=== PATIENT | male | born 1955 | race Caucasian/White ===

== ENCOUNTER → 2023-09-23 08:14 | Outpatient (REF) | payer MEDICARE, OTHER, SELFPAY ==
[2023-09-23 09:06] LABS: Hematocrit 43.2 % (39.0-52.0); Hemoglobin 14.7 g/dL (13.0-18.0); Mean Corpuscular Hgb 30.4 pg (27.0-31.0); Mean Corpuscular Volume 89.3 fL (80.0-94.0); Mean Platelet Volume 10.9 fL (7.4-10.4); Platelet Count 250 10^3/uL (130-400); Red Blood Cell Count 4.84 10^6/uL (4.70-6.10); Red Cell Dist. Width 12.9 % (11.5-14.5); White Blood Cell Count 10.4 10^3/uL (4.8-10.8)
[2023-09-23 09:48] LABS: ALT (SGPT) 22 U/L (0-50); AST (SGOT) 19 U/L (17-59); Albumin 4.2 g/dl (3.5-5.0); Alkaline Phosphatase 87 U/L (38-126); Blood Urea Nitrogen 22 mg/dl (9-20); Calcium 9.2 mg/dl (8.4-10.2); Carbon Dioxide 29 mmol/L (22-30); Chloride 103 mmol/L (98-107); Glucose 161 mg/dl (70-99); Sodium 136 mmol/L (135-145); Total Bilirubin 0.6 mg/dl (0.2-1.3); Total Protein 6.8 g/dl (6.3-8.2); eGFR > 60.00
== END ==
LOC: SDSPAT 08:14
PROVIDERS: ATTENDING PHYSICIAN Surgery; FAMILY PHYSICIAN Family Medicine
DX: Z01.818 Encounter for other preprocedural examination (principal)
CPT/HCPCS: 36415; 80053; 85027; 93005

== ENCOUNTER 2023-10-08 06:47 | Day surgery (SDC) | payer MEDICARE, OTHER, SELFPAY ==
[2023-09-23 08:31] VITALS: BMI 37.6
[2023-10-08] VITALS (13 sets, daily range): BP systolic 116–159; BP diastolic 68–94; BMI 37.6
--- NOTE | 2023-10-08 07:19 | HP.FOC2 ---
Focused History & Physical
Chief Complaint
HPI:
Chief Complaint: Abdominal pain
HPI / Indication for Planned Procedure: Patient is a 68-year-old male recently seen in outpatient surgical evaluation secondary to history of postprandial epigastric abdominal pain with nausea and vomiting. He has undergone outpatient GI evaluation
confirming the presence of gallstones, no biliary ductal dilation. Upper GI endoscopy demonstrating a small sliding hiatal hernia but otherwise normal with the exception of esophagitis. He presents today for cholecystectomy for management of
suspected symptomatic cholelithiasis
Relevant Past Medical History: Other (Hypertension, history of hep C -treated, GERD, hemochromatosis, history of melanoma, BPH with history of retention)
Relevant Social History: Negative
Relevant Family History: Negative
Relevant Past Surgical History: Positive for (Left knee replacement, right knee replacement, epigastric hernia repair, prostate biopsies, excision melanoma and neck surgery for herniated disc)
Review of Systems
Review of Pertinent Systems: All Systems Negative
Medication
See Medication form for detailed medications: Yes
Medication List (including Herbals & OTC):
Multivitamin 1 tab PO DAILY Supplement 04/23/20
Zinc 1 tab PO DAILY Supplement 04/23/20
amlodipine 5 mg tablet 5 mg PO DAILY Blood pressure ##0 04/25/21
omeprazole 40 mg capsule,delayed release 40 mg PO DAILY Gastrointestinal issue ##0 04/25/21
ibuprofen 400 mg tablet 400 mg PO Q6H PRN pain 10/04/23
lisinopril 20 mg-hydrochlorothiazide 25 mg tablet 1 tab PO DAILY 10/04/23
metformin 500 mg tablet 500 mg PO BID 10/04/23
Medications Reviewed: Yes
Allergies and Reactions
Patient has Allergies: Yes
Noted Allergies and Reactions:
Allergy/AdvReac Type Severity Reaction Status Date / Time
Penicillins Allergy Rash Verified 10/04/23 14:53
Pertinent Physical Exam
All Other Systems: Negative
Head/Neck: Normal
Lungs: Normal
Heart: Normal
Abdomen: Normal
Extremities: Normal
Neurological: Normal
Diagnosis / Assessment
68-year-old male presenting for scheduled cholecystectomy for management of probable chronic calculus cholecystitis/symptomatic cholelithiasis
Plan / Procedure
Laparoscopic cholecystectomy
Anesthesia/Sedation to be done by Anesthesia Provider: Yes
[2023-10-08 08:25] LABS: Glucose - Point of Care 164 mg/dl (70-99)
[2023-10-08] MEDS: TYLENOL 1000 MG PO (08:25)
[2023-10-08] MEDS: NORMOSOL-R 1000 IV (08:25)
--- NOTE | 2023-10-08 09:14 | W.SUR.PREOP ---
Pre-Operative Surgical Note
-
I have examined this patient prior to the performance of the scheduled procedure.
The patient's condition is unchanged from the time of the current History and
Physical and the patient is able to undergo the scheduled procedure.
[2023-10-08 09:31] LABS: Glucose - Point of Care 132 mg/dl (70-99)
--- NOTE | 2023-10-08 10:35 | SUR.OPER ---
PATIENT SUPINE, ARMS EXTENDED AND SECURED ON PADDED ARM BOARDS
--- NOTE | 2023-10-08 11:01 | W.IMMPOSTOP ---
Addendum entered and electronically signed by Obi Dove MD 10/08/23 11:11:
[id number]
Original Note:
Surgical Immed Post Op Note
-
Primary Surgeon: Petty
Assisting Surgeon: None
Pre-op Diagnosis: Chronic calculus cholecystitis/symptomatic cholelithiasis
Post-op Diagnosis: Chronic calculus cholecystitis/symptomatic cholelithiasis
Procedure Performed: Laparoscopic cholecystectomy
Anesthesia Type: GETA +0.25% Marcaine
Specimen / Cultures: Gallbladder
Estimated Blood Loss: 8 mL
Complications: None immediate
Operative Findings: Physiologically distended gallbladder with numerous omental adhesions consistent with chronic calculus cholecystitis. Stone(s) at infundibular cystic junction. Cystic duct isolated and controlled with hemoclips after critical
view of safety mildly obtained. Anterior cystic artery, posterior cystic artery as well as branch to cystic duct controlled with Hemoclip. Gallbladder removed intact and extracted at epigastric port site.
[2023-10-08 11:38] LABS: Glucose - Point of Care 208 mg/dl (70-99)
[2023-10-08 14:04] LABS: Glucose - Point of Care 248 mg/dl (70-99)
== END 2023-10-08 14:55 | disposition home or self-care (01) ==
LOC: SDS 06:47
PROVIDERS: ATTENDING PHYSICIAN Surgery
DX: K80.10 Calculus of gallbladder with chronic cholecystitis without obstruction (principal)
CPT/HCPCS: 47562; 88304; 82962

== ENCOUNTER 2024-02-28 05:47 | Inpatient (IN) | payer MEDICARE, OTHER, SELFPAY ==
[2024-02-28] VITALS (15 sets, daily range): BP systolic 139–175; BP diastolic 81–103; BMI 37.2; BMI 35.3
--- NOTE | 2024-02-28 03:02 | ED.GENMED ---
History of Present Illness
<JAKE Scanlon - Last Filed: 02/28/24 05:09>
General
Chief Complaint: Breathing Problem
Source: patient
Exam Limitations: none
Time Seen by Provider: 02/28/24 03:02
Nursing documentation reviewed up to this point in time: agreed with
History of Present Illness
History of Present Illness:
Pt is a 69 y/o M with pmhx of HTN, DM, GERD, Dodd's esophagus, and hepatitis who presents with complaints of shortness of breath for several weeks but has worsened tonight. SOB is worse with inhalation and exertion. The pt stated that he was
unable to walk across the parking lot to enter the ED due to SOB. There is an associated productive cough with clear sputum. Denies palpitations, chest pain, fever, nausea, vomiting, lightheadedness, adn hemoptysis.
The pt has a pmhx of HTN, DM, Dodd's esophagus, and self diagnosed sleep apnea. He currently takes Lisinopril, Amlodipine, Metformin, and Omeprazole. The pt reports that he regularly goes to nursing homes to play games.
Past History
<JAKE Scanlon - Last Filed: 02/28/24 05:09>
Past History
ED Past Medical History: Cancer (Melanoma), HTN, Other (Urinary retention) and Other (prostate)
ED Past Surgical History: Other (Biopsy)
Social History
Tobacco: Non-smoker
Alcohol: None
Drug: None
Personal: Single
Living: alone
Employment: Employed
Family History
Family History: Other (Noncontributory)
Review of Systems
<JAKE Scanlon - Last Filed: 02/28/24 05:09>
Review of Systems
Allergies reviewed?: Yes
Constitutional: Reports no symptoms
EENT: Reports no symptoms
Respiratory: Reports cough and trouble breathing
Cardiac: Reports no symptoms
ABD/GI: Reports no symptoms
: Reports no symptoms
Musculoskeletal: Reports no symptoms
Skin: Reports no symptoms
Neurological: Reports no symptoms
Endocrine: Reports no symptoms
Hematologic/Lymphatic: Reports no symptoms
Psychiatric: Reports no symptoms
Phy Exam
<JAKE Scanlon - Last Filed: 02/28/24 05:09>
General Physical Exam
General Presentation: well appearing and mild distress
General age: appears stated age
General Skin: warm and dry
General Habitus: normal
General Mental: alert
General Hydration: appears well hydrated
ENT Exam
ENT Exam: neck supple
Eye Exam
Eye Exam: cornea clear and conjunctiva normal
Cardiovascular Exam
Cardiovascular Exam: regular rate/rhythm, normal peripheral pulses and tachycardia
Pulmonary Exam
Pulmonary Exam: chest non tender, accessory muscle use and decreased breath sounds
Respiratory Effort: tachypnea
Cough: productive cough
Respirations: moderate effort and shallow
Breath Sounds: Rhonchi: right upper and right lower
Gastrointestinal Exam
Gastrointestinal Exam: soft and non distended
Neurological Exam
Neurological Exam: alert, oriented x3, no motor deficits, normal reflexs, no sensory deficits and speech normal
Musculoskeletal Exam
Musculoskeletal Exam: full ROM and neuro vasc intact
Skin Exam
Skin Exam: normal color and warm/dry
Scores
<JAKE Scanlon - Last Filed: 02/28/24 05:09>
Heart Failure Risk
HF Risk Score: 2
Admission Status: MEDIUM RISK 9.2% Consider observation or discharge to home with homecare & f/u visit to PCP/[facility], or SNF for treatment
<Juan Miguel Bains DO - Last Filed: 02/28/24 05:15>
Heart Failure Risk
Heart Failure Risk Score: Yes
History of Stroke or TIA: No
History of intubation for respiratory distress: No
Heart rate on ED arrival >/= 110: Yes
SaO2 <90% on arrival on room air: No
HR >/=110 during 3min walk test (or too ill to perform test): Yes
ECG has acute ischemic changes: No
Urea >/=12mmol/L (BUN 33.6mg/dL): No
Serum CO2>/=35mmol/L: No
Troponin I or T elevated to DE Level (0.4mg/dL): No
NT-proBNP >/=5,000ng/L (5,000pg/ml): No
HF Risk Score: 2
Admission Status: MEDIUM RISK 9.2% Consider observation or discharge to home with homecare & f/u visit to PCP/[facility], or SNF for treatment
Course
<JAKE Scanlon - Last Filed: 02/28/24 05:09>
Orders/Labs/Results
Orders:
Orders
02/28/24 02:51
Electrocardiogram (*1) Urgent
Reason for Study: Other
Other Reason for Exam: Respiratory Distress
EKG- Treatment ONCE
CR Chest - 2 Views Urgent
Comment:
Reason For Exam: respiratory distress
02/28/24 02:54
COVID-19 Antigen Urgent
Source: Nasal Swab
Complete Blood Count/With Diff Urgent
Comprehensive Metabolic Panel Urgent
NT-proBNP Urgent
Troponin I Urgent
02/28/24 03:43
Furosemide [Lasix] 80 mg IV NOW STA
Nitroglycerin Ointment [Nitro-Bid] 1 inch TOPICAL NOW STA
Abnormal Lab Results
02/28/24
02:54
WBC 11.7 H 10^3/uL
(4.8-10.8)
MPV 11.3 H fL
(7.4-10.4)
Absolute Neuts (auto) 8.7 H 10^3/uL
(1.4-6.5)
Absolute Monos (auto) 0.9 H 10^3/uL
(0.1-0.6)
Lymphocytes % 15.1 L %
(20.5-51.1)
BUN 22 H mg/dl
(9-20)
Glucose 155 H mg/dl
(70-99)
02/28/24 02:54
02/28/24 02:54
Vital Signs
Initial and Last Documented VS:
Initial Vital Signs
Temp Pulse Resp BP Pulse Ox
98.2 F 111 22 160/97 96
02/28/24 02:27 02/28/24 02:27 02/28/24 02:27 02/28/24 02:27 02/28/24 02:27
Last Documented Vital Signs
Temp Pulse Resp BP Pulse Ox
98.2 F 121 24 175/103 93
02/28/24 02:27 02/28/24 04:30 02/28/24 04:30 02/28/24 04:30 02/28/24 04:00
<Juan Miguel Bains, DO - Last Filed: 02/28/24 05:15>
Orders/Labs/Results
Orders:
Orders
02/28/24 02:51
Electrocardiogram (*1) Urgent
Reason for Study: Other
Other Reason for Exam: Respiratory Distress
EKG- Treatment ONCE
CR Chest - 2 Views Urgent
Comment:
Reason For Exam: respiratory distress
02/28/24 02:54
COVID-19 Antigen Urgent
Source: Nasal Swab
Complete Blood Count/With Diff Urgent
Comprehensive Metabolic Panel Urgent
NT-proBNP Urgent
Troponin I Urgent
02/28/24 03:43
Furosemide [Lasix] 80 mg IV NOW STA
Nitroglycerin Ointment [Nitro-Bid] 1 inch TOPICAL NOW STA
Abnormal Lab Results
02/28/24
02:54
WBC 11.7 H 10^3/uL
(4.8-10.8)
MPV 11.3 H fL
(7.4-10.4)
Absolute Neuts (auto) 8.7 H 10^3/uL
(1.4-6.5)
Absolute Monos (auto) 0.9 H 10^3/uL
(0.1-0.6)
Lymphocytes % 15.1 L %
(20.5-51.1)
BUN 22 H mg/dl
(9-20)
Glucose 155 H mg/dl
(70-99)
02/28/24 02:54
02/28/24 02:54
Vital Signs
Initial and Last Documented VS:
Initial Vital Signs
Temp Pulse Resp BP Pulse Ox
98.2 F 111 22 160/97 96
02/28/24 02:27 02/28/24 02:27 02/28/24 02:27 02/28/24 02:27 02/28/24 02:27
Last Documented Vital Signs
Temp Pulse Resp BP Pulse Ox
98.2 F 121 24 175/103 93
02/28/24 02:27 02/28/24 04:30 02/28/24 04:30 02/28/24 04:30 02/28/24 04:00
<JKAE Scanlon - Last Filed: 02/28/24 05:09>
MDM/Problems Addressed
Differential Diagnosis Includes:
Pneumonia
COPD
Covid
<JAKE Scanlon - Last Filed: 02/28/24 05:09>
*Critical Care Note
Total Time (30-74mins, 75-104mins- exclusive of procedures): Not Applicable
<Juan Miguel Bains DO - Last Filed: 02/28/24 05:15>
Update Note
Update Note:
Patient states been urinating very frequently since we gave him the diuretics. He states that he feels less short of breath, and denies other continuous chest pain though he still reports some intermittent chest pain. Patient wants to go home at
this point. He will be brought into the hospital.
ED Attending Note
<JAKE Scanlon - Last Filed: 02/28/24 05:09>
-
Portions of this chart may have been created with voice recognition software.� Occasional wrong word or��sound alike� substitutions may have occurred due to the inherent limitations of voice recognition software.
<Juan Miguel Bains DO - Last Filed: 02/28/24 05:15>
ED Attending Note
Patient seen and examined by attending physician: Yes
I performed the substantive portion of visit, reviewed & personally made and approve the management plan that is documented in note by myself or SANDRA.: Yes
ED Attending Note:
Pleasant 69-year-old male that presents with shortness of breath. He states that he has been having difficulty breathing for the last few weeks but tonight has been worse. 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 Tonight he noted
that he could not walk very far without gasping for air. Patient states that he typically would be able to ambulate from the parking lot to the emergency department but tonight he had a very difficult time walking. He became short of breath. He
did have a productive cough. Denies hemoptysis. Reports no true chest pain. Denies fever or chills. May have sleep apnea but states that the last 2 he has had very good sleep.
Vital signs are stable. Patient not hypoxic
Nursing note reviewed. I agree with nursing documentation up to this point in time.
Home Meds and allergies reviewed.
NUMBER AND COMPLEXITY OF PROBLEMS ADDRESSED AT THE ENCOUNTER
� Chronic conditions affecting care: Sleep apnea, hypertension, GERD, Dodd's esophagus, hepatitis.
� Acute Exacerbation and/or Progression of Chronic Illness: Acute problem
� Differential Diagnosis includes: CHF, COPD, pneumonia
AMOUNT AND/OR COMPLEXITY OF DATA TO BE REVIEWED AND ANALYZED
I performed an independent evaluation of the following and my interpretation is:
EKG: EKG shows sinus tachycardia rate of 110 with prolonged QT. Compared to previous EKG dated September 23, 2023, similar morphology noted.
CT:
X-rays: Pulmonary vascular congestion with possible right lower lobe infiltrate.
Ultrasound:
Laboratory Studies: proBNP is 2630
Other:
Review of other/old records: No previous chest x-rays
Clinical information was obtained by an independent historian:
Prescriptions/Medications Considered but not given:
Further testing considered but not performed:
RISK OF COMPLICATIONS AND/OR MORBIDITY OR MORTALITY OF PATIENT MANAGEMENT
Social determinants of health affecting care: Good Social Support
Discussion with other providers: Hospitalist for admission
Escalation of care including admission/observation vs risk of discharge considered:
CRITICAL CARE NOTE:
Critical care statement: A total of 30 minutes of critical care time was provided for this patient. This time is separate from time utilized to perform the aforementioned documented procedures. Aggregate critical care time includes only time
during which I was engaged in work directly related to the patient's care, as described above, whether at the bedside or elsewhere in the Emergency Department.
Total Time (exclusive of procedures):
Update:
Discharge Plan
Departure
Patient Disposition: Admit
Date of Disposition: 02/28/24
Time of Disposition: 05:11
Presentation/result/management discussed w/ accepting MD/DO: Hospitalist
Condition: Good
Discharge Problem:
CHF (congestive heart failure), Short of breath on exertion
Prescriptions:
No Action
Multivitamin
1 tab PO DAILY
Zinc
1 tab PO DAILY
amlodipine 5 MG tablet
5 mg PO DAILY Qty: 0 0RF
Rx Instructions:
Hold if systolic blood pressure <130 while on Oxycodone.
omeprazole 40 MG capsule,delayed release(DR/EC)
40 mg PO DAILY Qty: 0 0RF
Rx Instructions:
Take daily while on daily Meloxicam.
metformin 500 mg Tablet
500 mg PO BID
ibuprofen 400 mg Tablet
400 mg PO Q6H PRN (Reason: pain)
lisinopril-hydrochlorothiazide 20-25 mg Tablet
1 tab PO DAILY
acetaminophen [Tylenol Extra Strength] 500 mg tablet
1,000 mg PO Q6HPRN PRN (Reason: mild pain) Qty: 1 0RF
polyethylene glycol 3350 [Miralax] 17 gram/dose powder
4 g PO DAILY PRN (Reason: Constipation) Qty: 119 0RF
Rx Instructions:
start a laxative such as MIRALAX on day 2 after surgery if no bowel movement yet as long as no nausea/vomiting and passing gas
oxycodone 5 mg tablet
5 mg PO Q4HPRN PRN (Reason: breakthrough/severe pain) Qty: 14 0RF
Referrals:
Laith Mohamud MD [Family Provider] -
Interventions
Interventions:
*Risk Screen - Suicide Last Done: 02/28/24 02:27
*General Assessment Last Done: 02/28/24 02:27
*Neglect/Abuse Screening Last Done: 02/28/24 02:27
*ED COVID-19 Vaccine History Last Done: 02/28/24 02:54
ED- Cardiac Assessment Last Done: 02/28/24 03:11
ED- Pulmonary Assessment Last Done: 02/28/24 03:11
Discharge Date and Time
Print Language: CENTRAL AFRICAN
[2024-02-28 03:04] LABS: % Basophils 0.3 % (0-2); % Eosinophils 2.6 % (0-6); % Immature Granulocytes 0.3 % (0-0.5); % Lymphocytes 15.1 % (20.5-51.1); % Monocytes 7.8 % (1.7-9.3); % Neutrophils 73.9 % (42.2-75.2); Absolute Eosinophils 0.3 10^3/uL (0-0.7); Absolute Lymphocytes 1.8 10^3/uL (1.2-3.4); Absolute Monocytes 0.9 10^3/uL (0.1-0.6); Absolute Neutrophils 8.7 10^3/uL (1.4-6.5); Hematocrit 43.6 % (39.0-52.0); Hemoglobin 14.6 g/dL (13.0-18.0); Mean Corp Hgb Conc. 33.5 g/dL (33.0-37.0); Mean Corpuscular Hgb 30.4 pg (27.0-31.0); Mean Corpuscular Volume 90.8 fL (80.0-94.0); Mean Platelet Volume 11.3 fL (7.4-10.4); Nucleated Red Blood Cells % 0 % (-); Platelet Count 228 10^3/uL (130-400); Red Cell Dist. Width 13.2 % (11.5-14.5); White Blood Cell Count 11.7 10^3/uL (4.8-10.8)
[2024-02-28 03:17] LABS: ALT (SGPT) 19 U/L (0-50); AST (SGOT) 17 U/L (17-59); Albumin 4.3 g/dl (3.5-5.0); Alkaline Phosphatase 86 U/L (38-126); Blood Urea Nitrogen 22 mg/dl (9-20); Calcium 9.4 mg/dl (8.4-10.2); Carbon Dioxide 27 mmol/L (22-30); Chloride 103 mmol/L (98-107); Estimated Creatinine Clearance 83 ml/min; Glucose 155 mg/dl (70-99); Potassium 4.3 mmol/L (3.5-5.1); Sodium 143 mmol/L (135-145); Total Bilirubin 0.6 mg/dl (0.2-1.3); Total Protein 6.6 g/dl (6.3-8.2); eGFR > 60.00
[2024-02-28 03:23] LABS: COVID-19 Antigen Negative (Negative)
[2024-02-28 03:30] LABS: NT-proBNP 2630 pg/ml; Troponin I 0.016 ng/ml
[2024-02-28] MEDS: LASIX 80 MG IV (03:47)
[2024-02-28] MEDS: NITRO-BID 1 INCH TOPICAL (03:48)
--- NOTE | 2024-02-28 05:44 | HPS.HSE ---
Family Physician
-
Family Physician: Laith Mohamud
Chief Complaint
-
SOB
History of Present Illness
Patient is a 69y M with PMH significant for hypertension, DM-II and obesity who presents to ED complaining of SOB. Patient states that he has noted several months of dyspnea with exertion that seems to be gradually progressing. He states that
his symptoms have been suddenly much more severe over the past few days. He was at a retreat in [place] this evening when he could not get to sleep / lie flat / get comfortable due to feeling short of breath. He decided to drive back home and
presented to the ED for evaluation.
Patient denies any chest pain, pressure or palpitations. He has mild, non-productive cough. No sore throat, fevers or chills.
He denies any recent long distance travel. Most recent surgery was cholecystectomy in October of this year.
Patient denies any prior history of heart disease, OR, stroke, etc.
In the ED, patient received 80mg IV Lasix and has been diuresing effectively since. He states that his dyspnea may be slightly better - but he has also been inactive here.
Medical History
Past Medical History
Past Medical History: Reports Other
Additional Past Medical History:
Hypertension
DM-II
Obesity
Hepatitis C s/p Harvoni
Hereditary Hemochromatosis
Melanoma
GERD
BPH
Past Surgical History: Reports Other
Additional Past Surgical History:
Cholecystectomy
Melanoma Excision
TURP
Bilateral TKA
Social History
Tobacco: Former Smoker (Quit smoking 30 years ago.)
Alcohol: Former (Sober x 34 years.)
Drug: Other (Remote history of IVDA. Sober x decades.)
Family History
Family History: Not pertinent
Allergies / Home Medications
Allergies reflects when Allergies were last updated in [facility].
Home Medications with original date entered in [facility]
Allergy/Medication List:
Allergies
Allergy/AdvReac Type Severity Reaction Status Date / Time
Penicillins Allergy Rash Verified 02/28/24 02:32
Home Medications
amlodipine 5 mg tablet 5 mg PO DAILY Blood pressure ##0 04/25/21
omeprazole 40 mg capsule,delayed release 40 mg PO DAILY Gastrointestinal issue ##0 04/25/21
lisinopril 20 mg-hydrochlorothiazide 25 mg tablet 1 tab PO DAILY 10/04/23
metformin 500 mg tablet 500 mg PO BID 10/04/23
Review of Systems
-
History Source: Patient
A 12 point ROS was completed and negative except as noted: Yes
Constitutional: Reports Fatigue; Denies Fever or Chills
EENT: Denies Sore Throat
Respiratory: Reports Cough and Trouble Breathing; Denies Hemoptysis
Cardiac: Denies Chest Pain, Diaphoresis, Palpitations or Syncope
Abdomen/GI: Denies Abdominal Pain, Nausea, Vomiting or Diarrhea
: Denies Dysuria, Frequency or Flank Pain
Musculoskeletal: Denies Joint Pain or Edema
Neurological: Denies Dizzy or Headache
Psych: Denies Depression or Anxiety
Physical Exam
Vital Signs
Vital Signs
Temp Pulse Resp BP Pulse Ox
98.2 F 106 17 149/86 93
02/28/24 02:27 02/28/24 05:00 02/28/24 05:00 02/28/24 05:00 02/28/24 04:00
Physical Exam
General: Other (69y M in no acute distress.)
HEENT: Moist mucous membranes and Other (Thick neck. No appreciable JVD or HJR.)
Respiratory: Other (Few bibasilar rales. Decreased BS throughout. )
Cardiac: S1/S2 and Tachycardia; No Murmur
GI: Soft, Non Tender, Non Distended and Normal Bowel Sounds
Musculoskeletal: No Clubbing, No Cyanosis and Other (Trace edema b/l LEs.)
Neuro: AO x 3 and Nonfocal/grossly intact
Laboratory Results
-
02/28/24 02:54
02/28/24 02:54
Laboratory Results
Total Bilirubin 0.6 mg/dl (0.2-1.3) 02/28/24 02:54
AST 17 U/L (17-59) 02/28/24 02:54
ALT 19 U/L (0-50) 02/28/24 02:54
Alkaline Phosphatase 86 U/L (38-126) 02/28/24 02:54
Troponin I 0.016 ng/ml 02/28/24 02:54
Impression/Plan
-
A/P: Patient is a 69y M with PMH significant for hypertension and DM-II who presents to ED complaining of SOB.
SOB / COHN
Tachycardia
CHF - Unknown Type - New
- Admit for further evaluation and treatment.
- Patient with months of COHN, but increase in symptoms over the past few days.
- Not hypoxemic. Persistent sinus tachycardia here in the ED.
- CXR with small effusions and mild vascular prominence. BNP elevated.
- Continue IV Lasix BID and follow for effective diuresis.
- Check Echo (last in 2019 was normal).
- Cardiology evaluation for additional recommendations.
- Serial troponin.
- Check CT PE study with risk factors and persistent tachycardia.
Benign Hypertension
- BP elevated in the ED c/w volume overload / CHF.
- Hold amlodipine / HCTZ acutely during diuresis.
- Continue lisinopril with holding parameters.
DM-II
- Stable. Hold PO medications.
- Follow glucose and cover with SSI as needed.
- Update A1C.
Obesity due to excess calories
- Affects all aspects of care
- Encourage healthy diet and increased exercise with goal of weight loss.
DVT Prophylaxis: Lovenox - change to therapeutic if CTA shows PE.
Code Status: Full
--- NOTE | 2024-02-28 08:52 | W.PN.HOSP.TC ---
Today's Communication/Plan
-
IV Lasix. monitoring coordinator
Assessment / Plan
Assessment / Plan
Physical exam:
General: Acutely ill
HEENT: Normocephalic, Atraumatic and Moist Mucous Membranes
Respiratory: Bilateral crackles; Negative Wheezes, or Rhonchi
Cardiac: Regular Rhythm and S1/S2
GI: Soft, Nontender and Nondistended
Musculoskeletal: No Clubbing, No Cyanosis and No Edema
Neuro: Awake, Alert and Oriented
Psych: Calm
A/P:
SOB / COHN
Tachycardia
CHF - Unknown Type - New
- Admit for further evaluation and treatment.
- Patient with months of COHN, but increase in symptoms over the past few days.
- Not hypoxemic. Persistent sinus tachycardia here in the ED.
- CXR with small effusions and mild vascular prominence. BNP elevated.
- Continue IV Lasix BID and follow for effective diuresis.
- Check Echo (last in 2018 was normal).
- Cardiology evaluation for additional recommendations.
- Serial troponin.
- Check CT PE study with risk factors and persistent tachycardia.
Benign Hypertension
- BP elevated in the ED c/w volume overload / CHF.
- Hold amlodipine / HCTZ acutely during diuresis.
- Continue lisinopril with holding parameters.
DM-II
- Stable. Hold PO medications.
- Follow glucose and cover with SSI as needed.
- Update A1C.
Obesity due to excess calories
- Affects all aspects of care
- Encourage healthy diet and increased exercise with goal of weight loss.
DVT Prophylaxis: Lovenox - change to therapeutic if CTA shows PE.
Code Status: Full
Anticipated Discharge: > 48 hours
Subjective/Interval History
-
Date of Service: February 28, 2024
Patient still short of breath but feels slightly better today. No chest pain. Afebrile
Objective Data
-
Labs:
Laboratory Results
02/28/24
02:54
WBC 11.7 H
Hgb 14.6
Hct 43.6
Plt Count 228
Sodium 143
Potassium 4.3
Chloride 103
Carbon Dioxide 27
BUN 22 H
Creatinine 1.0
Glucose 155 H
Calcium 9.4
Total Bilirubin 0.6
AST 17
ALT 19
Alkaline Phosphatase 86
Vital Signs:
Vital Signs
Temp Pulse Resp BP Pulse Ox
98.3 F 106 18 159/99 96
02/28/24 08:47 02/28/24 08:47 02/28/24 08:47 02/28/24 08:47 02/28/24 08:47
I&O
02/27/24 02/28/24 02/29/24
06:59 06:59 06:59
Output Total 1000 / 1000
Balance -1000 / -1000
--- NOTE | 2024-02-28 09:24 | CON.CAR ---
Addendum entered and electronically signed by Que Lea MD 02/28/24 17:18:
I saw and examined the patient.
The ILLUMINATOR's note was reviewed and I agree with the note.
Comment: 69 y/o male with hypertension, PVC's, malignant melanoma s/p excision, hepatitis C (s/p Harvoni), hemochromatosis, RBBB (noted on EKG 09/2023), GERD/Dodd's esophagus, dyslipidemia, DM, and obesity. He has new acute HFrEF.
- Coronary angio tomorrow
- GDMT to be initiated
Original Note:
Consultation
Consultation Request
Date/Time Consultation Requested: 02/28/24906
Date/Time Consultation Performed: 02/28/24939
Requesting Provider: Dr. Leggett
Performing Provider: Ciara JUÁREZ for Dr. Lea
Reason for Consultation: CHF
Medical History
-
Chief Complaint: SOB
History of Present Illness:
69 y/o male with hypertension, PVC's, malignant melanoma s/p excision, hepatitis C (s/p Harvoni), hemochromatosis, RBBB (noted on EKG 09/2023), GERD/Dodd's esophagus, dyslipidemia, DM, and obesity. He is here for SOB. He has had progressive COHN
for the past year, but the past few weeks have been worse. It progressed so much that he came to the ER, where he is admitted for acute HF. He feels much improved s/p a dose of IV lasix, but still appears volume overloaded to assessment. He denies
any CP. He denies fever, chills, or cough.
Past Medical History
Past Medical History: Arrhythmias, Cancer, HTN, Hypercholesterolemia, NIDDM and Other (as above)
Social History
Tobacco: Non-Smoker
Alcohol: None
Family History
Family History: Reviewed & Not Pertinent
Allergies / Home Medications
Allergy/AdvReac Type Severity Reaction Status Date / Time
Penicillins Allergy Rash Verified 02/28/24 02:32
�Medication �Instructions �Recorded �Confirmed �Type
amlodipine 5 mg tablet 5 mg PO DAILY Blood pressure ##0 04/25/21 02/28/24 Rx
omeprazole 40 mg capsule,delayed 40 mg PO DAILY Gastrointestinal 04/25/21 02/28/24 Rx
release issue ##0
lisinopril 20 1 tab PO DAILY 10/04/23 02/28/24 History
mg-hydrochlorothiazide 25 mg tablet
metformin 1,000 mg tablet 1,000 mg PO BID 02/28/24 02/28/24 History
therapeutic multivitamin 1 tab PO DAILY 02/28/24 02/28/24 History
zinc sulfate 50 mg zinc (220 mg) 50 mg PO DAILY 02/28/24 02/28/24 History
tablet
Review of Systems
-
History Source: Patient
All other systems: Negative unless noted
Respiratory: Trouble Breathing
Musculoskeletal: Edema (mild BLE)
Physical Exam
Vital Signs
Temp Pulse Resp BP Pulse Ox
98.3 F 106 18 159/99 96
02/28/24 08:47 02/28/24 08:47 02/28/24 08:47 02/28/24 08:47 02/28/24 08:47
Lab Results
02/28/24 02:54
Troponin I 0.016 ng/ml 02/28/24 02:54
Wel-U-Ewpyhjbeest Pept 2630 pg/ml 02/28/24 02:54
Physical Exam
General: Well Developed and No Apparent Distress
HEENT: Normocephalic and Anicteric
Respiratory: Crackles (b/l bases)
Cardiac: Regular Rhythm (SR/ST)
Musculoskeletal: Edema (mild BLE edema)
Skin: Warm and Dry
Neuro: AO x 3
Psych: Calm
Impression / Plan
-
Acute HF (type unknown):
-update echo (2019 was unremarkable)
-agree with IV lasix, which requires intensive monitoring
-CHF education, limit sodium/fluid
-follow renal function, weights, I/O's
HTN:
-elevated
-continue meds and monitor with diuresis
-may need to adjust antihypertensives as well
-on CCB and ACEI/HCTZ. HCTZ stopped with diuretic. ACEI continued. I will resume CCB.
Bifascicular block:
-RBBB noted 09/2023
-follow telemetry
-currently SR/ST around 100 BPM
Obesity:
-would benefit from weight loss moving forward
-thinks he may have sleep apnea, so should consider OP sleep study with his PCP
Data Reviewed
-
EKG: Tracing Personally Visualized and interpreted (ST with PACs, bifasicular block)
CT Scan: Report Reviewed by me (Chest CT: Small bilateral pleural effusions with scattered areas of interlobular septal thickening compatible with mild pulmonary edema.)
Medical Tests (Nuc Med, Echo etc): Report Reviewed by me (echo 08/08/18: Normal left ventricular size, wall thickness and systolic function. LV ejection fraction is 55-60% . Trace mitral regurgitation. Trace tricuspid regurgitation.)
Labs: Labs Reviewed by me
[2024-02-28] MEDS: LASIX 40 MG IV ×2 (10:02→17:15)
[2024-02-28 10:03] LABS: Troponin I 0.029 ng/ml
[2024-02-28] MEDS: LOW STRENGTH ASPIRIN 81 MG PO (10:03)
[2024-02-28] MEDS: ZESTRIL 20 MG PO (10:03)
[2024-02-28 10:22] LABS: TSH Reflex To Free T4 0.73 uIU/ml (0.47-4.68)
[2024-02-28 10:26] LABS: Blood Urea Nitrogen 22 mg/dl (9-20); Calcium 9.3 mg/dl (8.4-10.2); Carbon Dioxide 23 mmol/L (22-30); Chloride 102 mmol/L (98-107); Estimated Creatinine Clearance 81 ml/min; Glucose 147 mg/dl (70-99); Magnesium 1.7 mg/dl (1.6-2.3); Potassium 3.7 mmol/L (3.5-5.1); Sodium 141 mmol/L (135-145); eGFR > 60.00
[2024-02-28 11:41] LABS: Glucose - Point of Care 138 mg/dl (70-99)
[2024-02-28] MEDS: NORVASC 5 MG PO (11:48)
[2024-02-28] MEDS: KCL 40 MEQ PO (12:29)
--- NOTE | 2024-02-28 15:09 | CM ---
Alert awake oriented patient who lives alone.He has supportive brother sister and friend Tung. He is independent in driving and all activities of daily living.Offered VN he declined need.IMM given explained signed on chart.
No VN hx /No SNF hx
Pharmacy [facility]
PCP DR Laith Mohamud
PLAN Home no anticipated needs
--- NOTE | 2024-02-28 16:00 | CARDSERVLU ---
Echocardiogram with Lumason completed after protocol screening completed. Allergies verified.
Patent IV site: __Rt AC___
IV site flushed with 0.9% NaCl pre and post administration.
Diluted bolus method utilized to enhance visualization of ventricular marie.
Total volume given: ___2_ mL
Patient tolerated all procedures well without complications.
[2024-02-28 17:15] LABS: Glucose - Point of Care 156 mg/dl (70-99)
[2024-02-28] MEDS: LOVENOX 40 MG SC (17:15)
[2024-02-28] MEDS: ASPIRIN 325 MG PO (17:24)
[2024-02-28] MEDS: TOPROL XL 25 MG PO (20:18)
[2024-02-28] MEDS: MAG-TAB SR 84 MG PO (20:18)
[2024-02-29] VITALS (13 sets, daily range): BP systolic 120–160; BP diastolic 79–96; BMI 34.6
[2024-02-29 00:25] LABS: Glucose - Point of Care 143 mg/dl (70-99)
[2024-02-29 06:03] LABS: Glucose - Point of Care 140 mg/dl (70-99)
[2024-02-29] MEDS: LASIX 40 MG IV ×2 (07:49→17:24)
[2024-02-29] MEDS: MAG-TAB SR 84 MG PO ×2 (07:49→19:32)
[2024-02-29] MEDS: LOW STRENGTH ASPIRIN 81 MG PO (07:49)
[2024-02-29] MEDS: TOPROL XL 25 MG PO ×2 (07:49→19:32)
[2024-02-29] MEDS: NORVASC 5 MG PO (07:49)
--- NOTE | 2024-02-29 08:44 | W.PN.HOSP.TC ---
Today's Communication/Plan
-
IV Lasix. Cardiac catheterization.
Assessment / Plan
Assessment / Plan
Physical exam:
General: Acutely ill
HEENT: Normocephalic, Atraumatic and Moist Mucous Membranes
Respiratory: Bilateral crackles; Negative Wheezes, or Rhonchi
Cardiac: Regular Rhythm and S1/S2
GI: Soft, Nontender and Nondistended
Musculoskeletal: No Clubbing, No Cyanosis and No Edema
Neuro: Awake, Alert and Oriented
Psych: Calm
A/P:
Acute systolic congestive heart failure:
On IV Lasix 40 mg twice a day
Requires intensive monitoring-->Monitor renal function & electrolytes
Started on GDMT-lisinopril 20 mg p.o. daily, metoprolol succinate 25 mg p.o. twice a day.
Echocardiogram revealed EF 35% and global diffuse hypokinesis and mild to moderate LVH with no significant valvular heart disease. EF previous was normal.
CTA negative for PE
Cardiology consult appreciated
Plan for cardiac catheterization today
Nonsustained V. tach:
Started on beta-kellee
Cardiac monitoring
Hypertension:
On DOE inhibitor, beta-blockers, and calcium channel kellee.
HCTZ discontinued.
Monitor blood pressure adjust medications accordingly
Diabetes mellitus type 2:
Insulin sliding scale
Hemoglobin A1c pending
Obesity due to excess calories
Affects all aspects of care
Encourage healthy diet and increased exercise with goal of weight loss.
DVT Prophylaxis: Lovenox
Code Status: Full
Time spent 55 minutes
Anticipated Discharge: 24 - 48 hours
Subjective/Interval History
-
Date of Service: February 29, 2024
Less shortness of breath. No chest pain.
Objective Data
-
Labs:
Laboratory Results
02/29/24
08:04
WBC Pending
Hgb Pending
Hct Pending
Plt Count Pending
Sodium Pending
Potassium Pending
Chloride Pending
Carbon Dioxide Pending
BUN Pending
Creatinine Pending
Glucose Pending
Calcium Pending
Vital Signs:
Vital Signs
Temp Pulse Resp BP Pulse Ox
98.4 F 80 18 149/83 96
02/29/24 07:30 02/29/24 07:49 02/29/24 07:30 02/29/24 07:49 02/29/24 07:30
I&O
02/28/24 02/29/24 03/01/24
06:59 06:59 06:59
Intake Total 600 / 600
Output Total 1000 / 1000 2350 / 2350
Balance -1000 / -1000 -1750 / -1750
[2024-02-29 08:52] LABS: Hematocrit 43.6 % (39.0-52.0); Hemoglobin 14.8 g/dL (13.0-18.0); Mean Corp Hgb Conc. 33.9 g/dL (33.0-37.0); Mean Corpuscular Hgb 29.4 pg (27.0-31.0); Mean Corpuscular Volume 86.5 fL (80.0-94.0); Mean Platelet Volume 11.5 fL (7.4-10.4); Platelet Count 256 10^3/uL (130-400); Red Blood Cell Count 5.04 10^6/uL (4.70-6.10); Red Cell Dist. Width 13.2 % (11.5-14.5); White Blood Cell Count 9.1 10^3/uL (4.8-10.8)
[2024-02-29 09:17] LABS: Blood Urea Nitrogen 24 mg/dl (9-20); Carbon Dioxide 26 mmol/L (22-30); Chloride 101 mmol/L (98-107); Estimated Creatinine Clearance 89 ml/min; Glucose 156 mg/dl (70-99); HDL Cholesterol 40 mg/dl; LDL Cholesterol, Calculated 135 mg/dl; Potassium 3.7 mmol/L (3.5-5.1); Sodium 143 mmol/L (135-145); Total Cholesterol 203 mg/dl (50-199); Triglyceride 142 mg/dl (10-149); Very Low Density Lipoprotein 28 mg/dl (0-30); eGFR > 60.00
--- NOTE | 2024-02-29 09:33 | PTOTSP ---
Pt currently at mod I/I level with basic self care, transfers and functional mobility in room and bathroom without AD. Nursing is in agreement. Skilled OT services not indicated at this time. Will sign off.
--- NOTE | 2024-02-29 09:46 | PTOTSP ---
Therapist spoke with the patient, who was ambulating in his room independently at the time. The patient denied changes in his mobility and reported that he remains independent. Patient has been using the bathroom or urinal independently while here.
Patient agreeable to PT signing off and is aware our services are available if needed. Will sign off at this time.
--- NOTE | 2024-02-29 10:35 | CM ---
entered order for med .Called Medicare partD [phone] pt ID [id number]
Hopper as follows Farxiga 10 mg x 30 days = $466.44
Jardiance 10mg QD = $489.53
Entresto BID =#[phone]
TT MD of above prices.
Pt offered VN . He declined need.
PLAN Home no needs
[2024-02-29 11:02] LABS: Glycohemoglobin (HgbA1c) 7.1 % (4.0-5.6)
[2024-02-29 11:59] LABS: Glucose - Point of Care 136 mg/dl (70-99)
--- NOTE | 2024-02-29 16:25 | ITS.CL.CATH ---
Plumber Helper - Catheterization
Cardiac Catheterization
Procedure Report:
CARDIAC CATHETERIZATION REPORT
Date of Procedure: 02/29/2024
Referring: Que Lea MD
Indication: New systolic CHF
�
HEMODYNAMIC DATA
AO: 142/80
LV: 142/24
�
LEFT VENTRICULOGRAPHY: Severe anterolateral and apical hypokinesis with EF 27%
�
CORONARY ANGIOGRAPHY
Dominance: Right
Left Main: Short without focal stenosis
LAD: 80% mid LAD stenosis distal to the takeoff of the first septal commercial solar sales consultant and first diagonal branch and proximal to the origin of the second diagonal branch. The remainder of the LAD system has mild luminal irregularities. D1 is large with no
significant disease. D2 is small to medium in size with 60% ostial stenosis
Circumflex: The circumflex is distally occluded past the takeoff of the large OM 3. There is faint filling of a small left posterolateral branch distal to the site of circumflex occlusion. OM1 is a medium size vessel with mild luminal disease. OM
2 is small. OM 3 is large with 60% mid stenosis.
RCA: Dominant vessel with tandem 60%, 50%, and 40% mid stenoses. The RCA terminates with a medium to large PDA and a medium sized RPL branch . There is very faint collateralization of the distal circumflex branch from right AV groove collaterals
�
Closure Device: None-the procedure was performed via the right radial artery. The Morales's test was normal prior to the procedure.
�
�
CONCLUSIONS
1:�Elevated LVEDP
2:�Severe anterolateral and apical hypokinesis with EF 27%
3. Triple-vessel CAD as described
4. Given the presence of severe left ventricular dysfunction, triple-vessel CAD and diabetes mellitus CABG is recommended as the optimal revascularization strategy. Optimal revascularization would include grafting of the LAD, D2 if sizable enough
for accepting a graft, OM 3, and RPDA
5. Continue diuresis and GDMT for systolic heart failure
�
�
Copy to: Que Lea MD, Laith Mohamud MD
�
Ezequiel Arguello MD, [facility], [facility]
--- NOTE | 2024-02-29 16:52 | CONSULT.CT ---
Consultation
-
Date/Time Consultation Requested: 02/29/24 1628
Date/Time Consultation Performed: 02/29/24 1700
Requesting Provider: Jos
Performing Provider: Jose Gibbs MD
Reason for Consultation: CABG eval
Patient History
Physicians
Family Physician: Laith Mohamud
Outpatient Diesel Service Technician: N/A
Inpatient Diesel Service Technician: Dr. Lea
History of Present Illness
69-year-old male with past medical history of hypertension, malignant melanoma s/p excision, hepatitis C s/p Harvoni,hemochromatosis, RBBB, GERD/Dodd's esophagus, HLD, DMII, and obesity presented on 02/27 with SOB and progressive COHN for the past
year but has worsen over the past few weeks. He was recently at a retreat in [place] and couldn't lie flat so he came home to go to the emergency room. He was found to be in acute heart failure and was treated with 80mg IV lasix.
Since admission, he has been getting diuresed with lasix and was taken to the cardiac agriculture laboratory technician today. He was found to have a elevated LVEDP, severe anterolateral and apical hypokineses with EF ~27%. He was a also found to had significant CAD.
Therefore, CT surgery was consulted for surgical evaluation.
Past Medical History
Past Medical History: Other
Hypertension
DM-II
Obesity
Hepatitis C s/p Harvoni
Hereditary Hemochromatosis
Melanoma
GERD
BPH
Past Surgical History
Past Surgical History: Other
Cholecystectomy
Melanoma Excision
TURP
Bilateral TKA
Family History
Family Medical History: CAD (brother) and Cancer
Social History
Alcohol: Former (Quit 34 years ago)
Drug: IVDA (remote (sober for decades))
Tobacco: Former Smoker (Quit 30yrs ago)
Personal: Single
Living: With Family (cousin in split level house)
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
Allergies
Allergy/AdvReac Type Severity Reaction Status Date / Time
Penicillins Allergy Rash Verified 02/28/24 02:32
Home Medications
�Medication �Instructions �Recorded �Confirmed �Type
amlodipine 5 mg tablet 5 mg PO DAILY Blood pressure ##0 04/25/21 02/28/24 Rx
omeprazole 40 mg capsule,delayed 40 mg PO DAILY Gastrointestinal 04/25/21 02/28/24 Rx
release issue ##0
lisinopril 20 1 tab PO DAILY Blood Pressure 10/04/23 02/28/24 History
mg-hydrochlorothiazide 25 mg tablet
metformin 1,000 mg tablet 1,000 mg PO BID Diabetes 02/28/24 02/28/24 History
therapeutic multivitamin 1 tab PO DAILY Supplement 02/28/24 02/28/24 History
zinc sulfate 50 mg zinc (220 mg) 50 mg PO DAILY Supplement 02/28/24 02/28/24 History
tablet
Review of Systems
-
History Source: Patient
General: Reports Weight Gain, Fatigue and Sleep Disturbance
HEENT: Reports No Symptoms
Respiratory: Reports SOB, COHN and Cough
Cardiac: Reports Edema
Abdomen/GI: Reports No Symptoms
: Reports No Symptoms
Musculoskeletal: Reports No Symptoms
Skin: Reports No Symptoms
Neurological: Reports No Symptoms
Vascular: Reports No Symptoms
Physical Exam
Vital Signs
Temp 98.3 F 02/29/24 16:45
Temp route: Oral 02/29/24 16:45
Pulse 96 02/29/24 16:45
Rhythm: Normal sinus rhythm 02/29/24 08:00
With- Bundle Branch Block Confi 02/28/24 20:00
Resp Rate 18 02/29/24 16:45
Blood pressure 140/89 02/29/24 16:45
Blood pressure extremity used: Left upper arm 02/29/24 16:45
Position: Lying 02/29/24 16:45
MAP (cuff-Juan Carlos Monitor) 102 02/28/24 08:01
SaO2 96 02/29/24 16:45
Oxygen Mode of Delivery Room air 02/29/24 16:45
Can the patient verbally communicate their pain? Yes 02/29/24 08:00
Actual Weight 103.136 kg 02/29/24 06:00
Body Mass Index (BMI) 34.6 02/29/24 06:00
Labs
02/29/24 08:04
02/29/24 08:04
Hemoglobin A1c 7.1 % (4.0-5.6) H 02/29/24 08:04
Troponin I 0.030 ng/ml 02/28/24 21:24
Tvx-N-Dgjjndiilnt Pept 2630 pg/ml 02/28/24 02:54
Exam
General: Well Developed, Well Nourished, Comfortable and Good Appetite
HEENT: Normocephalic
Respiratory: Crackles
Cardiac: S1/S2
GI: Soft and Other (obese)
Rectal: Deferred by Provider
Skin: Warm and Dry
Neuro: AO x 3 and Nonfocal/Grossly Intact
Extremities: Lower Level Edema and Pulses (+2)
Lymph: No Lymphadenopathy
Psych: Calm
Assessment / Plan
-
69-year-old male with past medical history listed above presented to to [facility] after some progressive shortness of breath. He was found to be in acute heart failure and was treated with Lasix. Left heart cath today revealed
multivessel disease and CT surgery was consulted.
#CAD
# HFrEF
-Continue diuresis as able
-Will need eventual GDMT
-Patient's case will be discussed with attending physician. Further details regarding surgical timing intervention will be determined after attending physicians full evaluation
-Routine preoperative cardiothoracic surgery orders will be initiated.
-STS risk stratification score will be calculated after preoperative testing is complete
-Continue heparin gtt per cardiology
#Diabetes mellitus type 2
-Continue SSI
-Hemoglobin A1c 7.1; previously 9 per patient
-Hold SGLT2 inhibitors as able until surgery
[2024-02-29 17:14] LABS: Glucose - Point of Care 163 mg/dl (70-99)
[2024-02-29] MEDS: LOVENOX 40 MG SC (17:24)
[2024-02-29] MEDS: LIPITOR 40 MG PO (17:24)
--- NOTE | 2024-02-29 20:04 | W.PN.UPDATE ---
Update Note
Progress Note Update
PA/Lat chest Xray is ordered for today as a pre-op prep. RN voices concern patient is s/p cardiac cath and needs to be on the floor for cath site check. Will change the time to tomorrow AM for Chest Xray PA/LAT 2 view.
[2024-02-29 21:15] LABS: Glucose - Point of Care 195 mg/dl (70-99)
[2024-03-01 03:06] VITALS: BP 119/76
[2024-03-01 06:00] VITALS: BMI 34.1
[2024-03-01 07:11] LABS: Hematocrit 46.5 % (39.0-52.0); Hemoglobin 15.7 g/dL (13.0-18.0); Mean Corp Hgb Conc. 33.8 g/dL (33.0-37.0); Mean Corpuscular Volume 88.9 fL (80.0-94.0); Platelet Count 240 10^3/uL (130-400); Red Blood Cell Count 5.23 10^6/uL (4.70-6.10); Red Cell Dist. Width 13.2 % (11.5-14.5); White Blood Cell Count 10.5 10^3/uL (4.8-10.8)
[2024-03-01 07:16] LABS: APTT 32.1 Sec (23.4-35.0)
[2024-03-01 07:36] LABS: ALT (SGPT) 21 U/L (0-50); AST (SGOT) 20 U/L (17-59); Albumin 4.3 g/dl (3.5-5.0); Alkaline Phosphatase 89 U/L (38-126); Blood Urea Nitrogen 24 mg/dl (9-20); Calcium 8.7 mg/dl (8.4-10.2); Carbon Dioxide 29 mmol/L (22-30); Chloride 100 mmol/L (98-107); Direct Bilirubin 0.2 mg/dl (0.0-0.4); Estimated Creatinine Clearance 79 ml/min; Glucose 149 mg/dl (70-99); Potassium 3.6 mmol/L (3.5-5.1); Sodium 142 mmol/L (135-145); Total Bilirubin 0.8 mg/dl (0.2-1.3); Total Protein 6.9 g/dl (6.3-8.2); eGFR > 60.00
[2024-03-01 07:52] LABS: Glucose - Point of Care 153 mg/dl (70-99)
[2024-03-01 08:05] VITALS: BP 148/96
--- NOTE | 2024-03-01 09:15 | W.PN.UPDATE ---
Update Note
Progress Note Update
Attempted to see patient with Dr. Gibbs this morning. Unfortunately, patient was in ultrasound for testing. Tentative surgery date will be WednesdayMarch 03. Would recommend transfer to IVU for closer monitoring. Continue ongoing work up. Will
discuss with cardiology about heart failure optimization.
June JUÁREZ
Cardiac Surgery
--- NOTE | 2024-03-01 09:28 | W.PN.HOSP.TC ---
Today's Communication/Plan
-
IV Lasix. GDMT adjustments.
Assessment / Plan
Assessment / Plan
Physical exam:
General: Acutely ill
HEENT: Normocephalic, Atraumatic and Moist Mucous Membranes
Respiratory: Bilateral crackles; Negative Wheezes, or Rhonchi
Cardiac: Regular Rhythm and S1/S2
GI: Soft, Nontender and Nondistended
Musculoskeletal: No Clubbing, No Cyanosis and No Edema
Neuro: Awake, Alert and Oriented
Psych: Calm
A/P:
Acute systolic congestive heart failure:
On IV Lasix 40 mg twice a day
Requires intensive monitoring-->Monitor renal function & electrolytes
Started on GDMT-lisinopril 20 mg p.o. daily, metoprolol succinate 50 mg p.o. twice a day, spironolactone 25 mg p.o. daily. Discontinue amlodipine. Consider Jardiance Entresto post CABG although appears cost prohibitive.
Echocardiogram revealed EF 35% and global diffuse hypokinesis and mild to moderate LVH with no significant valvular heart disease. EF previous was normal.
CTA negative for PE
Cardiology consult appreciated
Status post cardiac catheter yesterday and revealed multivessel CAD
Bifascicular block noted
Multivessel CAD:
Cardiology following
Cardiothoracic surgery evaluation appreciated
Plan for CABG this coming Wednesday and transferring to IVU today
Nonsustained V. tach:
Started on beta-kellee
Cardiac monitoring
Hypertension:
On DOE inhibitor, beta-blockers, and calcium channel kellee.
HCTZ discontinued.
Monitor blood pressure adjust medications accordingly
Diabetes mellitus type 2:
Insulin sliding scale
Hemoglobin A1c pending
Obesity due to excess calories
Affects all aspects of care
Encourage healthy diet and increased exercise with goal of weight loss.
DVT Prophylaxis: Lovenox
Code Status: Full
Time spent 55 minutes
Anticipated Discharge: > 48 hours
Subjective/Interval History
-
Date of Service: March 01, 2024
Denies any chest pain. Less shortness of breath.
Objective Data
-
Labs:
Laboratory Results
03/01/24
06:56
WBC 10.5
Hgb 15.7
Hct 46.5
Plt Count 240
PT 14.0
INR 1.10
APTT 32.1
Sodium 142
Potassium 3.6
Chloride 100
Carbon Dioxide 29
BUN 24 H
Creatinine 1.0
Glucose 149 H
Calcium 8.7
Total Bilirubin 0.8
AST 20
ALT 21
Alkaline Phosphatase 89
Vital Signs:
Vital Signs
Temp Pulse Resp BP Pulse Ox
97.8 F 96 18 148/96 98
03/01/24 08:05 03/01/24 08:05 03/01/24 08:05 03/01/24 08:05 03/01/24 08:05
I&O
02/29/24 03/01/24 03/02/24
06:59 06:59 06:59
Intake Total 600 / 600 240 / 240
Output Total 2350 / 2350 1300 / 1300
Balance -1750 / -1750 -1060 / -1060
[2024-03-01] MEDS: MAG-TAB SR 84 MG PO ×2 (09:29→19:59)
[2024-03-01] MEDS: ALDACTONE 25 MG PO (09:29)
[2024-03-01] MEDS: LOW STRENGTH ASPIRIN 81 MG PO (09:30)
[2024-03-01] MEDS: NORVASC 5 MG PO (09:30)
[2024-03-01] MEDS: LASIX 40 MG IV ×2 (09:30→16:00)
[2024-03-01] MEDS: TOPROL XL 25 MG PO ×2 (09:30→11:49)
[2024-03-01] MEDS: NOVOLOG FLEXPEN-LOW RESISTANCE 1 UNITS SC ×2 (09:39→17:54)
--- NOTE | 2024-03-01 10:45 | W.PN.CD ---
Today's Communication / Plan
-
-Found to have reduced LVEF of 35% and multivessel CAD on cardiac catheterization yesterday.
-Will increase Toprol-XL to 50 mg twice daily; tachycardic on telemetry.
-Will discontinue amlodipine (no benefit in CHF).
-Continue furosemide 40 mg IV twice daily.
-Continue lisinopril 20 mg daily.
-Continue spironolactone 25 mg daily.
-Consider Jardiance and Entresto post CABG.
-CABG evaluation by CT Surgery; possible CABG on 03/03/2024--as inpatient.
Impression / Plan
-
Acute HFrEF/ICM (EF 35%):
-Found to have reduced LVEF of 35% and multivessel CAD on cardiac catheterization yesterday.
-CHF education, limit sodium/fluid
-follow renal function, weights, I/O's
-Will increase Toprol-XL to 50 mg twice daily; tachycardic on telemetry.
-Will discontinue amlodipine (no benefit in CHF).
-Continue furosemide 40 mg IV twice daily.
-Continue lisinopril 20 mg daily.
-Continue spironolactone 25 mg daily.
-Consider Jardiance and Entresto post CABG.
Multivessel CAD:
-CABG evaluation by CT Surgery; possible CABG on 03/03/2024--as inpatient.
HTN:
-Fairly controlled
-Medication adjustments as above.
-HCTZ stopped with initiation of Lasix.
Bifascicular block:
-RBBB noted 09/2023
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
Obesity:
-Weight loss and regular exercise recommended.
-thinks he may have sleep apnea, so should consider OP sleep study with his PCP
Physical Exam
Vital Signs/Labs
Vital Signs
Temp Pulse Resp BP Pulse Ox
97.8 F 96 18 148/96 98
03/01/24 08:05 03/01/24 09:29 03/01/24 08:05 03/01/24 09:29 03/01/24 10:38
02/29/24 03/01/24 03/02/24
06:59 06:59 06:59
Actual Weight 103.136 kg 101.803 kg
03/01/24 06:56
03/01/24 06:56
PT 14.0 Sec (11.4-14.6) 03/01/24 06:56
INR 1.10 03/01/24 06:56
APTT 32.1 Sec (23.4-35.0) 03/01/24 06:56
Magnesium 1.7 mg/dl (1.6-2.3) 02/28/24 09:26
Triglycerides 142 mg/dl (10-149) 02/29/24 08:04
LDL Cholesterol, Calc 135 mg/dl 02/29/24 08:04
VLDL Cholesterol, Calc 28 mg/dl (0-30) 02/29/24 08:04
HDL Cholesterol 40 mg/dl 02/29/24 08:04
02/28/24
02:54
Nsv-D-Aaslpkmtpmd Pept 2630
LAB Results
02/28/24 02/28/24 02/28/24
02:54 09: 13:38
Troponin I 0.016 0.029 D 0.030
02/28/24
21:24
Troponin I 0.030
Physical Exam
Constitutional: No acute distress and Comfortable
EENT: Anicteric
Cardiovascular: Rhythm & rate is regular, Pedal edema is absent, Systolic murmur absent and S1S2 is normal
Respiratory: Respiratory effort normal and Crackles Present (Scant bibasilar)
GI: Soft
Neuro/Psych: AO x 3
Other: Skin (Warm, dry, intact)
Data Reviewed
-
Date of Service: March 01, 2024
EKG: Tracing Personally Visualized and interpreted (Telemetry: Sinus rhythm/tachycardia)
Echo: Report Reviewed by me (EF 35%)
Medical Tests (PFT, Pathology etc): Discussed with Patient (Cardiac catheterization: Multivessel disease)
Labs: Labs Reviewed by me
[2024-03-01 12:04] VITALS: BP 129/80
[2024-03-01 13:46] LABS: Glucose - Point of Care 123 mg/dl (70-99)
[2024-03-01] MEDS: NOVOLOG FLEXPEN-LOW RESISTANCE SC (13:46)
--- NOTE | 2024-03-01 14:57 | CM ---
entered order for med .Called Medicare partD [id number] pt ID [id number]
Hopper as follows Farxiga 10 mg x 30 days = $466.44
Jardiance 10mg QD = $489.53
Entresto BID =#[phone]
TT MD of above prices.
Pt offered VN . He declined need.
Pt to be transferred to IVU for further cardiac intervention.
PLAN Home no needs
[2024-03-01 16:16] VITALS: BP 137/97
--- NOTE | 2024-03-01 16:16 | TRANSFER ---
pt transferred to IVU as per order. Report given to GILBERT muñoz.
[2024-03-01 17:09] LABS: Glucose - Point of Care 186 mg/dl (70-99)
[2024-03-01] MEDS: LIPITOR 40 MG PO (17:54)
--- NOTE | 2024-03-01 18:36 | PTCARENOTE ---
Pt transferred from 4th floor via wheelchair. Pt denies any discomfort. Telemetry shows sinus rhythm with RBBB. Plan to diurese and prep for CVOR.
[2024-03-01 19:58] VITALS: BP 134/83
[2024-03-01] MEDS: TOPROL XL 50 MG PO (19:59)
[2024-03-01 21:58] LABS: Glucose - Point of Care 174 mg/dl (70-99)
[2024-03-01 22:00] VITALS: BP 117/62
[2024-03-02 03:31] VITALS: BP 130/84
[2024-03-02 03:38] VITALS: BMI 34.7
[2024-03-02 04:02] LABS: % Basophils 0.5 % (0-2); % Eosinophils 2.5 % (0-6); % Immature Granulocytes 0.3 % (0-0.5); % Lymphocytes 22.5 % (20.5-51.1); % Monocytes 8.8 % (1.7-9.3); % Neutrophils 65.4 % (42.2-75.2); Absolute Basophils 0.1 10^3/uL (0-0.2); Absolute Eosinophils 0.3 10^3/uL (0-0.7); Absolute Lymphocytes 2.5 10^3/uL (1.2-3.4); Absolute Neutrophils 7.1 10^3/uL (1.4-6.5); Hematocrit 42.7 % (39.0-52.0); Hemoglobin 14.7 g/dL (13.0-18.0); Mean Corp Hgb Conc. 34.4 g/dL (33.0-37.0); Mean Corpuscular Hgb 29.5 pg (27.0-31.0); Mean Corpuscular Volume 85.7 fL (80.0-94.0); Mean Platelet Volume 10.8 fL (7.4-10.4); Nucleated Red Blood Cells % 0 % (-); Platelet Count 238 10^3/uL (130-400); Red Blood Cell Count 4.98 10^6/uL (4.70-6.10); Red Cell Dist. Width 13.1 % (11.5-14.5); White Blood Cell Count 10.9 10^3/uL (4.8-10.8)
[2024-03-02 04:31] LABS: Blood Urea Nitrogen 30 mg/dl (9-20); Calcium 8.7 mg/dl (8.4-10.2); Carbon Dioxide 25 mmol/L (22-30); Chloride 101 mmol/L (98-107); Estimated Creatinine Clearance 73 ml/min; Glucose 134 mg/dl (70-99); Potassium 3.6 mmol/L (3.5-5.1); Sodium 141 mmol/L (135-145); eGFR > 60.00
[2024-03-02 07:34] VITALS: BP 138/83
--- NOTE | 2024-03-02 07:50 | W.PN.CD ---
Today's Communication / Plan
-
KCL 40 x 1
continue diuresis today
CABG tomorrow
OK to shower today
Impression / Plan
-
Acute HFrEF/ICM (EF 35%):
-Found to have reduced LVEF of 35% and multivessel CAD on cardiac catheterization 02-28.
-CHF education, limit sodium/fluid
-follow renal function, weights, I/O's
-KCL 40mEq x 1
-Will increase Toprol-XL to 50 mg twice daily; tachycardic on telemetry.
-Continue furosemide 40 mg IV twice daily today- wt 228 down from peak 245
-Continue lisinopril 20 mg daily.
-Continue spironolactone 25 mg daily.
-Consider Jardiance and Entresto post CABG.
Multivessel CAD:
-CABG evaluation by CT Surgery; CABG on 03/03/2024--as inpatient.
HTN:
-Fairly controlled
-Medication adjustments as above.
-HCTZ stopped with initiation of Lasix.
Bifascicular block:
-RBBB noted 09/2023
-Continue library monitor
Obesity:
-Weight loss and regular exercise recommended.
-thinks he may have sleep apnea, so should consider OP sleep study with his PCP
Physical Exam
Vital Signs/Labs
Vital Signs
Temp Pulse Resp BP Pulse Ox
97.7 F 89 18 138/83 93
03/02/24 07:39 03/02/24 07:34 03/02/24 07:39 03/02/24 07:34 03/02/24 07:39
03/01/24 03/02/24 03/03/24
06:59 06:59 06:59
Actual Weight 224 lb 7 oz 228 lb 2.855 oz
03/02/24 03:49
03/02/24 03:49
PT 14.0 Sec (11.4-14.6) 03/01/24 06:56
INR 1.10 03/01/24 06:56
APTT 32.1 Sec (23.4-35.0) 03/01/24 06:56
Magnesium 1.7 mg/dl (1.6-2.3) 02/28/24 09:26
Triglycerides 142 mg/dl (10-149) 02/29/24 08:04
LDL Cholesterol, Calc 135 mg/dl 02/29/24 08:04
VLDL Cholesterol, Calc 28 mg/dl (0-30) 02/29/24 08:04
HDL Cholesterol 40 mg/dl 02/29/24 08:04
02/28/24
02:54
Lia-P-Vmeqawedkky Pept 2630
LAB Results
02/28/24 02/28/24 02/28/24
: 13:38 21:24
Troponin I 0.029 D 0.030 0.030
Physical Exam
Constitutional: No acute distress
EENT: Anicteric
Cardiovascular: Rhythm & rate is regular, S1S2 is normal and Murmur/rub/gallop absent
Respiratory: Respiratory effort normal, Lungs clear to auscul. and Wheeze Absent
GI: Soft, Non tender and Normal bowel sounds
Neuro/Psych: AO x 3 and Motor deficits absent
Data Reviewed
-
Date of Service: March 02, 2024
[2024-03-02 07:56] VITALS: BMI 34.7
[2024-03-02] MEDS: VENTOLIN NEBULES 2.5 MG INH (08:16)
[2024-03-02 08:31] LABS: Glucose - Point of Care 162 mg/dl (70-99)
--- NOTE | 2024-03-02 09:41 | W.PN.HOSP.TC ---
Today's Communication/Plan
-
Continue current anti-ischemic regimen. IV Lasix.
Assessment / Plan
Assessment / Plan
Physical exam:
General: Acutely ill
HEENT: Normocephalic, Atraumatic and Moist Mucous Membranes
Respiratory: Clear to auscultation bilateral; Negative Wheezes, or Rhonchi
Cardiac: Regular Rhythm and S1/S2
GI: Soft, Nontender and Nondistended
Musculoskeletal: No Clubbing, No Cyanosis and No Edema
Neuro: Awake, Alert and Oriented
Psych: Calm
A/P:
Acute systolic congestive heart failure:
On IV Lasix 40 mg twice a day
Requires intensive monitoring-->Monitor renal function & electrolytes
Started on GDMT-metoprolol succinate 50 mg p.o. twice a day, spironolactone 25 mg p.o. daily. Discontinue amlodipine. Apparently discontinuing DOE inhibitor. Consider Jardiance Entresto post CABG although appears cost prohibitive.
Echocardiogram revealed EF 35% and global diffuse hypokinesis and mild to moderate LVH with no significant valvular heart disease. EF previous was normal.
CTA negative for PE
Cardiology consult appreciated
Status post cardiac catheter day before yesterday and revealed multivessel CAD
Bifascicular block noted
Multivessel CAD:
Cardiology following
Cardiothoracic surgery evaluation appreciated
On aspirin statins beta-kellee
Plan for CABG this coming Wednesday and transferring to IVU since yesterday
Nonsustained V. tach:
Started on beta-kellee
Cardiac monitoring
Hypertension:
On DOE inhibitor, beta-blockers, and calcium channel kellee.
HCTZ discontinued.
Monitor blood pressure adjust medications accordingly
Diabetes mellitus type 2:
Insulin sliding scale
Hemoglobin A1c 7.1
Obesity due to excess calories
Affects all aspects of care
Encourage healthy diet and increased exercise with goal of weight loss.
DVT Prophylaxis: Lovenox
Code Status: Full
Anticipated Discharge: > 48 hours
Subjective/Interval History
-
Date of Service: March 02, 2024
Patient denies chest pain or shortness of breath today.
Objective Data
-
Labs:
Laboratory Results
03/02/24
03:49
WBC 10.9 H
Hgb 14.7
Hct 42.7
Plt Count 238
Sodium 141
Potassium 3.6
Chloride 101
Carbon Dioxide 25
BUN 30 H
Creatinine 1.1
Glucose 134 H
Calcium 8.7
Vital Signs:
Vital Signs
Temp Pulse Resp BP Pulse Ox
97.7 F 89 18 138/83 93
03/02/24 07:39 03/02/24 07:34 03/02/24 07:39 03/02/24 07:34 03/02/24 07:39
I&O
03/01/24 03/02/24 03/03/24
06:59 06:59 06:59
Intake Total 240 / 240 200 / 200
Output Total 1300 / 1300 400 / 400
Balance -1060 / -1060 -200 / -200
[2024-03-02] MEDS: NOVOLOG FLEXPEN-LOW RESISTANCE 1 UNITS SC (09:48)
[2024-03-02] MEDS: ALDACTONE 25 MG PO (09:50)
[2024-03-02] MEDS: MAG-TAB SR 84 MG PO ×2 (09:50→20:09)
[2024-03-02] MEDS: LOW STRENGTH ASPIRIN 81 MG PO (09:50)
[2024-03-02] MEDS: TOPROL XL 50 MG PO ×2 (09:51→20:09)
[2024-03-02] MEDS: LASIX 40 MG IV ×2 (09:51→16:34)
[2024-03-02] MEDS: KCL 40 MEQ PO (09:51)
--- NOTE | 2024-03-02 10:44 | CM ---
Reviewed chart. Mr. Meade was transferred to IVU. Met with Mr. Meade to review discharge plans. He states prior to admission he resides with his cousin in a spilt level home with four steps to enter. He states he has ten steps to get down to his
bedroom/full bathroom. He states prior to admission he was independent with ambulation and adls. He states he does not have any DME in the home. He states he has a prescription plan with [facility] and uses [facility]. He states his cousin will
be in and out of the home and will be able to check on him when he goes home. Medical work-up in progress. The discharge plan is to return home with his cousin and a home visit by the Cardiothoracic Transitional Care Nurse when medically stable.
We reviewed pre-op and post-op routines. Briefly reviewed the shower instructions. We also reviewed restrictions including sternal precautions and driving restrictions. We discussed a home visit by the Cardiothoracic Transitional Care Nurse. He
is agreeable to a home visit. The plan is for CABG on Sunday, March 03, 2024.
[2024-03-02 11:02] VITALS: BP 133/70
[2024-03-02 12:21] LABS: Glucose - Point of Care 265 mg/dl (70-99)
[2024-03-02] MEDS: NOVOLOG FLEXPEN-LOW RESISTANCE 3 UNITS SC (12:22)
[2024-03-02 15:01] VITALS: BP 117/75
[2024-03-02 17:18] LABS: Glucose - Point of Care 117 mg/dl (70-99)
[2024-03-02] MEDS: NOVOLOG FLEXPEN-LOW RESISTANCE SC (17:20)
[2024-03-02] MEDS: LIPITOR 40 MG PO (17:55)
--- NOTE | 2024-03-02 18:38 | PTCARENOTE ---
Pt denies any discomfort or SOB. Pt walking in halls. Telemetry shows sinus rhythm. Plan for CVOR next week.
[2024-03-02 18:58] VITALS: BP 119/73
--- NOTE | 2024-03-02 21:55 | PTCARENOTE ---
Pt rec'd at change of shift in Sinus rhythm with BBB. Right radial site drsg removed left anitra. Pt with no c/o pain. Ambulated around unit several times without complaint
[2024-03-02 22:16] LABS: Glucose - Point of Care 128 mg/dl (70-99)
[2024-03-02 22:44] VITALS: BP 112/71
[2024-03-03 04:25] VITALS: BP 121/78
[2024-03-03 06:00] VITALS: BMI 35.0
--- NOTE | 2024-03-03 07:35 | W.PN.UPDATE ---
Update Note
Progress Note Update
Patient's CABG postponed until Wednesdaymarch [address] gilliland. Continue current regimen.
--- NOTE | 2024-03-03 08:09 | W.PN.CD ---
Today's Communication / Plan
-
diuresis goal 1L negative
Impression / Plan
-
Acute HFrEF/ICM (EF 35%):
-Found to have reduced LVEF of 35% and multivessel CAD on cardiac catheterization 02-28.
-CHF education, limit sodium/fluid
-follow renal function, weights, I/O's
-KCL 40mEq x 1
-cont. Toprol-XL to 50 mg twice daily (increased from 25 with improvement in HRs)
-Continue furosemide 40 mg IV twice daily today, goal 1 L negative
-Continue lisinopril 20 mg daily.
-Continue spironolactone 25 mg daily.
-Consider Jardiance and Entresto post CABG.
Multivessel CAD:
-CABG evaluation by CT Surgery; postponed until Tuesday 03/06
HTN:
-Fairly controlled
-Medication adjustments as above.
-HCTZ stopped with initiation of Lasix.
Bifascicular block:
-RBBB noted 09/2023
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
Obesity:
-Weight loss and regular exercise recommended.
-thinks he may have sleep apnea, so should consider OP sleep study with his PCP
Subjective: feeling less short of breath compared to admission; making jokes ('what do you call a deer with no eyes?' ... 'no eyed deer')
Physical Exam
Vital Signs/Labs
Vital Signs
Temp Pulse Resp BP Pulse Ox
36.6 C 82 18 121/78 96
03/02/24 22:49 03/03/24 05:00 03/02/24 18:59 03/03/24 04:25 03/03/24 04:25
03/02/24 03/03/24 03/04/24
06:59 06:59 06:59
Actual Weight 103.5 kg
03/02/24 03:49
03/02/24 03:49
PT 14.0 Sec (11.4-14.6) 03/01/24 06:56
INR 1.10 03/01/24 06:56
APTT 32.1 Sec (23.4-35.0) 03/01/24 06:56
Magnesium 1.7 mg/dl (1.6-2.3) 02/28/24 09:26
Triglycerides 142 mg/dl (10-149) 02/29/24 08:04
LDL Cholesterol, Calc 135 mg/dl 02/29/24 08:04
VLDL Cholesterol, Calc 28 mg/dl (0-30) 02/29/24 08:04
HDL Cholesterol 40 mg/dl 02/29/24 08:04
02/28/24
02:54
Nrm-E-Jlsvgvjfwfj Pept 2630
Physical Exam
Constitutional: No acute distress and Comfortable
Cardiovascular: Rhythm & rate is regular, Systolic murmur absent, Diastolic murmur absent and Pedal edema present (trace)
Respiratory: Respiratory effort normal and Lungs clear to auscul.
Neuro/Psych: Alert, Oriented and AO x 3
Data Reviewed
-
Date of Service: March 03, 2024
Medical Decision Making: Reviewed Test Results
EKG: Tracing Personally Visualized and interpreted and Report Reviewed by me
Echo: Report Reviewed by me
X-Ray/CT/US/MRI/NUC/PET: Image Personally Visualized and interpreted and Report Reviewed by me
Labs: Labs Reviewed by me
[2024-03-03 08:18] VITALS: BP 118/76
[2024-03-03 08:39] LABS: Glucose - Point of Care 161 mg/dl (70-99)
--- NOTE | 2024-03-03 10:03 | W.PN.HOSP.TC ---
Today's Communication/Plan
-
IV Lasix. Ischemic regimen.
Assessment / Plan
Assessment / Plan
Physical exam:
General: Acutely ill
HEENT: Normocephalic, Atraumatic and Moist Mucous Membranes
Respiratory: Few coarse crackles bilateral; Negative Wheezes, or Rhonchi
Cardiac: Regular Rhythm and S1/S2
GI: Soft, Nontender and Nondistended
Musculoskeletal: No Clubbing, No Cyanosis and some lower extremity edema
Neuro: Awake, Alert and Oriented
Psych: Calm
A/P:
Acute systolic congestive heart failure:
On IV Lasix 40 mg twice a day
Requires intensive monitoring-->Monitor renal function & electrolytes
Discussed with cardiology today on 03/03 and they would like continue aggressive diuresis for negative balance.
Continue on GDMT-metoprolol succinate 50 mg p.o. twice a day, spironolactone 25 mg p.o. daily. Discontinue amlodipine. DOE inhibitor back on board (previously discontinued by CT surgery team). Consider Jardiance Entresto post CABG although
appears cost prohibitive.
Echocardiogram revealed EF 35% and global diffuse hypokinesis and mild to moderate LVH with no significant valvular heart disease. EF previous was normal.
CTA negative for PE
Cardiology consult appreciated
Status post cardiac catheterization and revealed multivessel CAD
Bifascicular block noted
Multivessel CAD:
Cardiology following
Cardiothoracic surgery evaluation appreciated
On aspirin statins beta-kellee
Plan for CABG this coming Wednesday
Nonsustained V. tach:
Started on beta-kellee
Cardiac monitoring
Hypertension:
On DOE inhibitor, beta-blockers, and calcium channel kellee.
HCTZ discontinued.
Monitor blood pressure adjust medications accordingly
Diabetes mellitus type 2:
Insulin sliding scale
Hemoglobin A1c 7.1
Obesity due to excess calories
Affects all aspects of care
Encourage healthy diet and increased exercise with goal of weight loss.
DVT Prophylaxis: Lovenox back on board (previously discontinued by CT surgery team).
Code Status: Full
Time spent 55 minutes
Anticipated Discharge: > 48 hours
Subjective/Interval History
-
Date of Service: March 03, 2024
Patient still short of breath. No chest pain. Afebrile
Objective Data
-
Vital Signs:
Vital Signs
Temp Pulse Resp BP Pulse Ox
97.8 F 80 16 118/76 96
03/03/24 08:16 03/03/24 08:18 03/03/24 08:16 03/03/24 08:18 03/03/24 08:46
I&O
03/02/24 03/03/24 03/04/24
06:59 06:59 06:59
Intake Total 200 / 200 240 / 240
Output Total 400 / 400
Balance -200 / -200 240 / 240
[2024-03-03] MEDS: NOVOLOG FLEXPEN-LOW RESISTANCE 1 UNITS SC ×2 (10:06→13:17)
[2024-03-03] MEDS: TOPROL XL 50 MG PO ×2 (10:10→20:47)
[2024-03-03] MEDS: MAG-TAB SR 84 MG PO ×2 (10:10→20:47)
[2024-03-03] MEDS: LOW STRENGTH ASPIRIN 81 MG PO (10:10)
[2024-03-03] MEDS: LASIX 40 MG IV ×2 (10:10→15:45)
[2024-03-03] MEDS: ZESTRIL 20 MG PO (10:10)
--- NOTE | 2024-03-03 10:50 | CM ---
Reviewed chart. Mr. Meade surgery has been postponed until Tuesday, March 06. Met with Mr. Meade to review discharge plans. He states he feels well. He is aware of the change in surgery date. Prior to admission he resides with his cousin "Nella"in a spilt level home with four steps to enter. He has ten steps to get to the lower level where his bedroom/full bathroom are located. Prior to admission he was independent with ambulation and adls. He does not have any DME in the home. He has a
prescription plan with [facility] and uses [facility]. His cousin will be in and out of the home to check on him. Medical work-up in progress. The discharge plan is to return home with his cousin and a home visit by the Cardiothoracic
Transitional Care Nurse when medically stable.
[2024-03-03 12:18] VITALS: BP 112/67
[2024-03-03 13:02] LABS: Glucose - Point of Care 182 mg/dl (70-99)
[2024-03-03 17:07] VITALS: BP 111/76
[2024-03-03 17:23] LABS: Glucose - Point of Care 140 mg/dl (70-99)
[2024-03-03] MEDS: NOVOLOG FLEXPEN-LOW RESISTANCE SC (17:35)
[2024-03-03] MEDS: LIPITOR 40 MG PO (17:37)
[2024-03-03] MEDS: LOVENOX 40 MG SC (17:37)
--- NOTE | 2024-03-03 19:06 | PTCARENOTE ---
Pt denies any discomfort, up walking in halls. Pt down 15lbs since admission, he denies any SOB. Telemetry shows sinus rhythm with RBBB, one run NSVT, brief tachycardia.
[2024-03-03 20:49] VITALS: BP 109/65
[2024-03-03 21:27] LABS: Glucose - Point of Care 127 mg/dl (70-99)
--- NOTE | 2024-03-03 21:42 | PTCARENOTE ---
Pt oob freq ambulating around unit. No c/o cp or sob with ambulation. Sinus with BBB on telemetry.
[2024-03-03 23:01] VITALS: BP 115/67
[2024-03-04 03:34] VITALS: BP 129/78
[2024-03-04 03:36] VITALS: BMI 34.9
[2024-03-04 04:30] LABS: Hematocrit 44.3 % (39.0-52.0); Hemoglobin 14.7 g/dL (13.0-18.0); Mean Corp Hgb Conc. 33.2 g/dL (33.0-37.0); Mean Corpuscular Hgb 30.1 pg (27.0-31.0); Mean Corpuscular Volume 90.6 fL (80.0-94.0); Mean Platelet Volume 11.8 fL (7.4-10.4); Platelet Count 229 10^3/uL (130-400); Red Blood Cell Count 4.89 10^6/uL (4.70-6.10); Red Cell Dist. Width 12.8 % (11.5-14.5); White Blood Cell Count 11.5 10^3/uL (4.8-10.8)
[2024-03-04 04:52] LABS: Blood Urea Nitrogen 30 mg/dl (9-20); Calcium 8.8 mg/dl (8.4-10.2); Carbon Dioxide 29 mmol/L (22-30); Chloride 98 mmol/L (98-107); Estimated Creatinine Clearance 67 ml/min; Glucose 142 mg/dl (70-99); Magnesium 2.5 mg/dl (1.6-2.3); Potassium 4.3 mmol/L (3.5-5.1); Sodium 141 mmol/L (135-145); eGFR > 60.00
[2024-03-04 07:36] VITALS: BP 122/77
[2024-03-04 07:40] LABS: Glucose - Point of Care 123 mg/dl (70-99)
[2024-03-04] MEDS: NOVOLOG FLEXPEN-LOW RESISTANCE SC ×3 (08:49→18:41)
[2024-03-04] MEDS: LOW STRENGTH ASPIRIN 81 MG PO (09:04)
[2024-03-04] MEDS: MAG-TAB SR 84 MG PO ×2 (09:04→20:16)
[2024-03-04] MEDS: LASIX 40 MG IV ×2 (09:04→15:58)
[2024-03-04] MEDS: TOPROL XL 50 MG PO ×2 (09:04→20:16)
--- NOTE | 2024-03-04 09:35 | W.PN.HOSP.TC ---
Today's Communication/Plan
-
IV Lasix.
Assessment / Plan
Assessment / Plan
Physical exam:
General: Acutely ill but no acute distress
HEENT: Normocephalic, Atraumatic and Moist Mucous Membranes
Respiratory: Few coarse crackles bilateral; Negative Wheezes, or Rhonchi
Cardiac: Regular Rhythm and S1/S2
GI: Soft, Nontender and Nondistended
Musculoskeletal: No Clubbing, No Cyanosis and some lower extremity edema
Neuro: Awake, Alert and Oriented
Psych: Calm
A/P:
Acute systolic congestive heart failure:
On IV Lasix 40 mg twice a day
Requires intensive monitoring-->Monitor renal function & electrolytes
Discussed with cardiology today on 03/03 and they would like continue aggressive diuresis for negative balance.
Continue on GDMT-metoprolol succinate 50 mg p.o. twice a day, spironolactone 25 mg p.o. daily. Discontinue amlodipine. DOE inhibitor back on board (previously discontinued by CT surgery team). Consider Jardiance Entresto post CABG although
appears cost prohibitive.
Echocardiogram revealed EF 35% and global diffuse hypokinesis and mild to moderate LVH with no significant valvular heart disease. EF previous was normal.
CTA negative for PE
Cardiology consult appreciated
Status post cardiac catheterization and revealed multivessel CAD
Bifascicular block noted
Multivessel CAD:
Cardiology following
Cardiothoracic surgery evaluation appreciated
On aspirin statins beta-kellee
Plan for CABG this coming Wednesday
Nonsustained V. tach:
Started on beta-kellee
Cardiac monitoring
Hypertension:
On DOE inhibitor, beta-blockers, and calcium channel kellee.
HCTZ discontinued.
Monitor blood pressure adjust medications accordingly
Diabetes mellitus type 2:
Insulin sliding scale
Hemoglobin A1c 7.1
Obesity due to excess calories
Affects all aspects of care
Encourage healthy diet and increased exercise with goal of weight loss.
DVT Prophylaxis: Lovenox back on board (previously discontinued by CT surgery team).
Code Status: Full
Anticipated Discharge: > 48 hours
Subjective/Interval History
-
Date of Service: March 04, 2024
Patient denies any shortness of breath or chest pain today.
Objective Data
-
Labs:
Laboratory Results
03/04/24
03:50
WBC 11.5 H
Hgb 14.7
Hct 44.3
Plt Count 229
Sodium 141
Potassium 4.3
Chloride 98
Carbon Dioxide 29
BUN 30 H
Creatinine 1.2
Glucose 142 H
Calcium 8.8
Vital Signs:
Vital Signs
Temp Pulse Resp BP Pulse Ox
97.9 F 101 18 122/77 97
03/04/24 03:36 03/04/24 09:00 03/04/24 03:36 03/04/24 09:04 03/04/24 03:36
I&O
03/03/24 03/04/24 03/05/24
06:59 06:59 06:59
Intake Total 240 / 240 100 / 100
Balance 240 / 240 100 / 100
--- NOTE | 2024-03-04 11:20 | W.PN.CD ---
Addendum entered and electronically signed by Mickey Ramirez MD 03/04/24 13:21:
Patient seen and evaluated personally. I agree with the note, documentation and plan of care as documented below.
Briefly, 69-year-old gentleman with ischemic cardiomyopathy with LVEF of 35% with multivessel coronary artery disease noted on cardiac catheterization on 02/29/2024. Patient is diuresing well. Has lost 6 kg since admission and is close to euvolemic
now. Plan for coronary bypass graft on 03/06/2024. Continue optimization till then.
Original Note:
Today's Communication / Plan
-
Con't diuresis'
Plan for CAB on 03/06/24
Impression / Plan
-
Acute HFrEF/ICM (EF 35%):
-Found to have reduced LVEF of 35% and multivessel CAD on cardiac catheterization 02-28.
-CHF education, limit sodium/fluid
-follow renal function, weights, I/O's
-cont. Toprol-XL to 50 mg twice daily (increased from 25 with improvement in HRs)
-con't lasix, down 6 kg since admit, maybe able to transition to po lasix tomorrow.
-Consider Jardiance and Entresto post CABG.
Multivessel CAD:
-CABG evaluation by CT Surgery; postponed until Tuesday 03/06
HTN:
-Fairly controlled
-Medication adjustments as above.
-HCTZ stopped with initiation of Lasix.
Bifascicular block:
-RBBB noted 09/2023
-Continue clinic specialist
Obesity:
-Weight loss and regular exercise recommended.
-thinks he may have sleep apnea, so should consider OP sleep study with his PCP
Subjective:
No CP,palps SOB. Feeling better since admit.
Physical Exam
Vital Signs/Labs
Vital Signs
Temp Pulse Resp BP Pulse Ox
97.9 F 84 18 122/77 97
03/04/24 03:36 03/04/24 10:30 03/04/24 03:36 03/04/24 09:04 03/04/24 03:36
03/03/24 03/04/24 03/05/24
06:59 06:59 06:59
Actual Weight 104.4 kg 104.1 kg
03/04/24 03:50
03/04/24 03:50
PT 14.0 Sec (11.4-14.6) 03/01/24 06:56
INR 1.10 03/01/24 06:56
APTT 32.1 Sec (23.4-35.0) 03/01/24 06:56
Magnesium 2.5 mg/dl (1.6-2.3) H 03/04/24 03:50
Triglycerides 142 mg/dl (10-149) 02/29/24 08:04
LDL Cholesterol, Calc 135 mg/dl 02/29/24 08:04
VLDL Cholesterol, Calc 28 mg/dl (0-30) 02/29/24 08:04
HDL Cholesterol 40 mg/dl 02/29/24 08:04
02/28/24
02:54
Jro-B-Ojyvbfgyzzr Pept 2630
Physical Exam
Constitutional: No acute distress
Cardiovascular: Rhythm & rate is regular and Pedal edema is absent
Respiratory: Respiratory effort normal and Lungs clear to auscul.
GI: Soft and Non tender
Neuro/Psych: AO x 3
Data Reviewed
-
Date of Service: March 04, 2024
Medical Tests (PFT, Pathology etc): Other (Tele: NSR 80 bpm, SVT up to 150-160 bpm. )
Labs: Labs Reviewed by me
[2024-03-04 12:20] VITALS: BP 119/75
[2024-03-04 13:18] LABS: Glucose - Point of Care 122 mg/dl (70-99)
--- NOTE | 2024-03-04 15:58 | W.PN.UPDATE ---
Update Note
Progress Note Update
Procedure Type:�Isolated CABG
PERIOPERATIVE OUTCOME ESTIMATE %
Operative Mortality 2.38%
Morbidity & Mortality 12.4%
Stroke 1.5%
Renal Failure 2.05%
Reoperation 2.66%
Prolonged Ventilation 8.07%
Deep Sternal Wound Infection 0.341%
Long Hospital Stay (>14 days) 8.46%
Short Hospital Stay (<6 days)* 31.1%
Clinical Summary
Planned Surgery: Isolated CABG, Urgent, First cardiovascular surgery
Demographics: 69 year old, White, male, 103.1kg, 173cm, BMI: 34.4 kg/m�
Lab Values: Creatinine: 1.2 mg/dL, Hematocrit: 44.3%, WBC Count: 11.5 10�/�L, Platelet Count: 247710 cells/�L
PreOp Medications: Oral diabetes control
Substance Abuse: Former smoker
Risk Factors / Comorbidities: Diabetes Mellitus , Cancer <=5 yrs, Hypertension, Family Hx of CAD
Pulmonary RF: Mild CLD
Cardiac Status: Acute heart failure, NYHA Class III, Ejection Fraction = 30%
Coronary Artery Disease: 3 vessels diseased, Proximal LAD Stenosis >=70%, Angina equivalent
Valve Disease: Trivial/Trace MR
[2024-03-04 16:02] VITALS: BP 132/75
[2024-03-04] MEDS: LIPITOR 40 MG PO (18:34)
[2024-03-04 18:40] LABS: Glucose - Point of Care 130 mg/dl (70-99)
[2024-03-04 19:45] VITALS: BP 118/72
[2024-03-04 21:06] LABS: Glucose - Point of Care 150 mg/dl (70-99)
[2024-03-04 22:05] VITALS: BP 114/69
--- NOTE | 2024-03-04 22:38 | PTCARENOTE ---
Pt rec'd ambulating unit at change of shift. no c/o cp or sob with ambulating. Pt did report slight discomfort at IV site (LFA). Site was ecchymotic,slightly firm and catheter noted to be mostly out. line pulled ,warm compress applied. New 20 g iv
site placed in right forearm. Pt remains sinus on telemetry no ectopy
[2024-03-05] VITALS (9 sets, daily range): BP systolic 121–141; BP diastolic 68–80; BMI 34.9
--- NOTE | 2024-03-05 00:31 | W.PN.CT ---
Today's Communication / Plan
-
Plan:
-Cont. current medical management per primary team
-Ongoing medical optimization/preop workup
-Cont. current meds (ASA, Lipitor, Toprol XL)
-For CABG by Dr. Gibbs tomorrow 03/06
-Will cont. to closely monitor
Assessment / Plan
-
Assessment:
-Severe multivessel CAD
-Acute systolic CHF
-ICM (LVEF 35% per echo 02/27
-Hypertension
-T2DM (hgb A1C 7.1)
-Class 2 obesity (BMI 35)
-Suspected DELMAR
-Hepatitis C s/p Harvoni
-Former IVDA (sober for decades)
-Former tobacco abuse (Quit 34 years ago)
-Hereditary Hemochromatosis
-Melanoma S/p excision
-GERD/Dodd's esophagitis
-BPH S/P TURP
-S/P bilateral TKA
-S/P cholecystectomy
Discussed patient care with: Cardiology, Nursing and Care Team
Subjective
-
Date of Service: March 05, 2024
No issues overnight. Denies CP/SOB
Objective Data
-
Lab Results
03/04/24 03:50
PT 14.0 Sec (11.4-14.6) 03/01/24 06:56
INR 1.10 03/01/24 06:56
APTT 32.1 Sec (23.4-35.0) 03/01/24 06:56
Vital Signs
Vital Signs
Temp Pulse Resp BP Pulse Ox
97.9 F 83 20 114/69 95
03/04/24 22:06 03/04/24 22:05 03/04/24 22:06 03/04/24 22:05 03/04/24 22:06
CT Intake/Output/Weight
03/04/24 03/04/24 03/05/24
06:59 18:59 06:59
Intake Total 100 / 100 240 / 240
Balance 100 / 100 240 / 240
SaO2: 95 (RA)
Physical Exam
-
General: Awake, Oriented and AOx3
Cardiovascular: Regular rate & rhythm and No Murmurs
Respiratory: Clear
Extremities: No Edema
Data Reviewed
-
Lab Results: Results Reviewed
Medications: Active Meds Reviewed
Chest X-Ray: Report Reviewed and Image Reviewed
ECG: Report Reviewed and Image Reviewed
[2024-03-05 05:02] LABS: Blood Urea Nitrogen 40 mg/dl (9-20); Carbon Dioxide 29 mmol/L (22-30); Chloride 100 mmol/L (98-107); Estimated Creatinine Clearance 67 ml/min; Glucose 148 mg/dl (70-99); Potassium 4.2 mmol/L (3.5-5.1); Sodium 141 mmol/L (135-145); eGFR > 60.00
[2024-03-05 07:32] LABS: Glucose - Point of Care 157 mg/dl (70-99)
[2024-03-05] MEDS: NOVOLOG FLEXPEN-LOW RESISTANCE 1 UNITS SC ×2 (08:13→17:25)
[2024-03-05] MEDS: MAG-TAB SR 84 MG PO ×2 (08:17→21:23)
[2024-03-05] MEDS: TOPROL XL 50 MG PO ×2 (08:17→21:23)
[2024-03-05] MEDS: LOW STRENGTH ASPIRIN 81 MG PO (08:17)
[2024-03-05] MEDS: LASIX 40 MG IV ×2 (08:18→17:23)
--- NOTE | 2024-03-05 08:58 | W.PN.CD ---
Today's Communication / Plan
-
Plan for CABG in the morning
Impression / Plan
-
Acute HFrEF/ICM (EF 35%):
-Found to have reduced LVEF of 35% and multivessel CAD on cardiac catheterization 02-28.
-CHF education, limit sodium/fluid
-follow renal function, weights, I/O's
-cont. Toprol-XL to 50 mg twice daily (increased from 25 with improvement in HRs)
-con't lasix,- Hold for surgery in AM
-Consider Jardiance and Entresto post CABG.
Multivessel CAD:
-CABG on Tuesday 03/06
HTN:
-Fairly controlled
-Medication adjustments as above.
-HCTZ stopped with initiation of Lasix.
Bifascicular block:
-RBBB noted 09/2023
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
Obesity:
-Weight loss and regular exercise recommended.
-thinks he may have sleep apnea, so should consider OP sleep study with his PCP
Subjective:
No CP,palps SOB. Feeling better since admit.
Physical Exam
Vital Signs/Labs
Vital Signs
Temp Pulse Resp BP Pulse Ox
98.1 F 82 20 133/80 95
03/05/24 07:23 03/05/24 04:15 03/05/24 07:23 03/05/24 03:57 03/05/24 07:23
03/04/24 03/05/24 03/06/24
06:59 06:59 06:59
Actual Weight 104.1 kg 104.1 kg
03/04/24 03:50
03/05/24 04:17
PT 14.0 Sec (11.4-14.6) 03/01/24 06:56
INR 1.10 03/01/24 06:56
APTT 32.1 Sec (23.4-35.0) 03/01/24 06:56
Magnesium 2.5 mg/dl (1.6-2.3) H 03/04/24 03:50
Triglycerides 142 mg/dl (10-149) 02/29/24 08:04
LDL Cholesterol, Calc 135 mg/dl 02/29/24 08:04
VLDL Cholesterol, Calc 28 mg/dl (0-30) 02/29/24 08:04
HDL Cholesterol 40 mg/dl 02/29/24 08:04
02/28/24
02:54
Kqu-R-Pmtotgnjleq Pept 2630
Physical Exam
Constitutional: No acute distress and Comfortable
EENT: Anicteric and Moist mucous membranes
Cardiovascular: Rhythm & rate is regular, Pedal edema is absent and JVD pressure is normal
Respiratory: Respiratory effort normal, Lungs clear to auscul. and Wheeze Absent
GI: Soft, Non tender and Normal bowel sounds
Neuro/Psych: Alert, Oriented and AO x 3
Data Reviewed
-
Date of Service: March 05, 2024
Medical Decision Making: Reviewed Test Results, Independent Historian Assessment, Test Interpretation and Review of Case with other Provider
EKG: Tracing Personally Visualized and interpreted
Echo: Report Reviewed by me
Labs: Labs Reviewed by me
Old Records: Reviewed
--- NOTE | 2024-03-05 09:08 | W.PN.HOSP.TC ---
Today's Communication/Plan
-
Diuretics. Anti-ischemic regimen. Plan for CABG tomorrow
Assessment / Plan
Assessment / Plan
Physical exam:
General: Acutely ill but no acute distress
HEENT: Normocephalic, Atraumatic and Moist Mucous Membranes
Respiratory: Few coarse crackles bilateral; Negative Wheezes, or Rhonchi
Cardiac: Regular Rhythm and S1/S2
GI: Soft, Nontender and Nondistended
Musculoskeletal: No Clubbing, No Cyanosis and some lower extremity edema
Neuro: Awake, Alert and Oriented
Psych: Calm
A/P:
Acute systolic congestive heart failure:
On IV Lasix 40 mg twice a day
Monitor renal function & electrolytes
Continue on GDMT-metoprolol succinate 50 mg p.o. twice a day, Holding spironolactone. Discontinue amlodipine and DOE inhibitor. Consider Jardiance Entresto post CABG although appears cost prohibitive.
Echocardiogram revealed EF 35% and global diffuse hypokinesis and mild to moderate LVH with no significant valvular heart disease. EF previous was normal.
CTA negative for PE
Cardiology consult appreciated
Status post cardiac catheterization and revealed multivessel CAD
Bifascicular block noted
Multivessel CAD:
Cardiology following
Cardiothoracic surgery evaluation appreciated
On aspirin statins beta-kellee
Plan for CABG this coming Wednesday
Nonsustained V. tach:
Started on beta-kellee
Cardiac monitoring
Hypertension:
On DOE inhibitor, beta-blockers, and calcium channel kellee.
HCTZ discontinued.
Monitor blood pressure adjust medications accordingly
Diabetes mellitus type 2:
Insulin sliding scale
Hemoglobin A1c 7.1
Obesity due to excess calories
Affects all aspects of care
Encourage healthy diet and increased exercise with goal of weight loss.
DVT Prophylaxis: Holding Lovenox in anticipation for surgery
Code Status: Full
Anticipated Discharge: > 48 hours
Subjective/Interval History
-
Date of Service: March 05, 2024
Feels fine today. No chest pain or shortness of breath. He seems to be in good spirit.
Objective Data
-
Labs:
Laboratory Results
03/05/24
04:17
Sodium 141
Potassium 4.2
Chloride 100
Carbon Dioxide 29
BUN 40 H
Creatinine 1.2
Glucose 148 H
Calcium 9.0
Vital Signs:
Vital Signs
Temp Pulse Resp BP Pulse Ox
98.1 F 82 20 133/80 95
03/05/24 07:23 03/05/24 04:15 03/05/24 07:23 03/05/24 03:57 03/05/24 07:23
I&O
03/04/24 03/05/24 03/06/24
06:59 06:59 06:59
Intake Total 100 / 100 240 / 240
Balance 100 / 100 240 / 240
--- NOTE | 2024-03-05 11:18 | PTCARENOTE ---
Pt showered today, winston well. He has been walking in room and halls, denies pain, denies SOB.
[2024-03-05 11:40] LABS: Glucose - Point of Care 134 mg/dl (70-99)
[2024-03-05] MEDS: NOVOLOG FLEXPEN-LOW RESISTANCE SC (11:50)
[2024-03-05] MEDS: LIPITOR 40 MG PO (17:23)
[2024-03-05 17:24] LABS: Glucose - Point of Care 173 mg/dl (70-99)
--- NOTE | 2024-03-05 22:00 | PTCARENOTE ---
Assumed care of pt from doug RN. Pt admitted to room 2263. Pt SR w/ BBB on the tele monitor. HR 80s. BP stable. Palpable pulses throughout. Trace LE edema. Pt on RA. POX 97%. Lung sounds clear. Abdomen soft/nontender. +BS. Pt OOB to void w/o
issue. Right radial cath site CDI. PIV x1 CDI. No c/o pain at this time. Pt clipped for CVOR procedure tomorrow morning. Pt took 1st CHG shower. See worklist for full nursing assessment and interventions. Call hassan within reach.
[2024-03-06] VITALS (7 sets, daily range): BP systolic 106–141; BP diastolic 63–91; BMI 34.6
--- NOTE | 2024-03-06 01:18 | PTCARENOTE ---
No acute changes in assessment. Pt remains SR on the tele monitor. HR 80s. BP stable. Pt on RA. POX 99%. Pt independently OOB to void as needed. Call hassan within reach.
[2024-03-06 05:19] LABS: Hemoglobin 12.9 g/dL (13.0-18.0); Mean Corp Hgb Conc. 33.9 g/dL (33.0-37.0); Mean Corpuscular Hgb 30.8 pg (27.0-31.0); Mean Corpuscular Volume 90.7 fL (80.0-94.0); Mean Platelet Volume 11.8 fL (7.4-10.4); Platelet Count 211 10^3/uL (130-400); Red Blood Cell Count 4.19 10^6/uL (4.70-6.10); Red Cell Dist. Width 12.5 % (11.5-14.5); White Blood Cell Count 11.4 10^3/uL (4.8-10.8)
[2024-03-06] MEDS: LOPRESSOR 25 MG PO (05:42)
[2024-03-06] MEDS: PROTONIX 40 MG PO (05:42)
[2024-03-06] MEDS: MAGNESIUM OXIDE 500 MG PO (05:42)
[2024-03-06] MEDS: BACTROBAN 2% OINTMENT 1 APPLIC NASAL ×2 (05:43→19:57)
[2024-03-06 05:44] LABS: Blood Urea Nitrogen 49 mg/dl (9-20); Calcium 8.8 mg/dl (8.4-10.2); Carbon Dioxide 28 mmol/L (22-30); Chloride 100 mmol/L (98-107); Estimated Creatinine Clearance 67 ml/min; Glucose 160 mg/dl (70-99); Potassium 4.2 mmol/L (3.5-5.1); Sodium 140 mmol/L (135-145); eGFR > 60.00
--- NOTE | 2024-03-06 06:19 | PTCARENOTE ---
Labs drawn and sent. VS and weight obtained. Pt took 2nd CHG soap shower. Linens changed. Pre-op meds given. Pt updated with plan for the day. Questions encouraged and answered. Call hassan within reach.
--- NOTE | 2024-03-06 06:58 | W.CVOR.SURPR ---
CVOR Surgeon Immed Pre Op
-
I have examined this patient prior to performance of the scheduled procedure.
The patient's condition is unchanged from the time of the dictated/written History and
Physical and the patient is able to undergo the scheduled procedure.
[2024-03-06 07:27] LABS: ACT+ - POC 93 Seconds (82-134)
[2024-03-06] MEDS: NOVOLOG FLEXPEN-LOW RESISTANCE SC ×2 (07:36)
[2024-03-06] MEDS: LOW STRENGTH ASPIRIN PO (07:36)
[2024-03-06] MEDS: LASIX IV (07:36)
[2024-03-06] MEDS: MAG-TAB SR PO (07:37)
[2024-03-06] MEDS: TOPROL XL PO (07:37)
[2024-03-06 08:00] LABS: Urine Albumin Negative (Neg - Trace); Urine Bilirubin Negative (Negative); Urine Character Clear (Clear); Urine Color Yellow; Urine Glucose Negative (Negative); Urine Ketone Negative (Negative); Urine Leukocyte Negative (Negative); Urine Nitrite Negative (Negative); Urine Occult Blood Negative (Negative); Urine Specific Gravity 1.015 (<1.030); Urine Urobilinogen Negative (Neg - 1+)
[2024-03-06 09:31] LABS: ACT+ - POC 530 Seconds (82-134)
[2024-03-06 09:39] LABS: B.E. - POC 1.4 mmol/L; Glucose - POC 162 mg/dl (70-99); HCO3 - POC 27 mmol/L (21-29); Hematocrit - POC 36 % PCV (42-52); Hemodilution- POC Yes; Hemoglobin Calculated - POC 12.1; Ionized Calcium - POC 1.18 mmol/L (1.12-1.27); O2 Saturation %Calculated-POC 99.6 5 (92-96); PCO2 - POC 47 mmHg (35-45); PO2 - POC 180 mmHg (80-100); POC Comment PRE; Potassium - POC 3.6 mmol/L (3.6-5.0); Sodium - POC 139 mmol/L (135-145); pH - POC 7.37 (7.35-7.45)
[2024-03-06 09:50] LABS: ACT+ - POC 557 Seconds (82-134)
[2024-03-06 10:12] LABS: B.E. - POC 6.7 mmol/L; Glucose - POC 171 mg/dl (70-99); HCO3 - POC 31 mmol/L (21-29); Hematocrit - POC 34 % PCV (42-52); Hemodilution- POC Yes; Hemoglobin Calculated - POC 11.7; Ionized Calcium - POC 1.07 mmol/L (1.12-1.27); O2 Saturation %Calculated-POC 99.9 5 (92-96); PCO2 - POC 44 mmHg (35-45); PO2 - POC 276 mmHg (80-100); POC Comment CPB/STAYED WARM; Potassium - POC 4.2 mmol/L (3.6-5.0); Sodium - POC 139 mmol/L (135-145); pH - POC 7.46 (7.35-7.45)
[2024-03-06 10:21] LABS: ACT+ - POC 489 Seconds (82-134)
[2024-03-06 10:39] LABS: B.E. - POC 4.3 mmol/L; Glucose - POC 160 mg/dl (70-99); HCO3 - POC 29 mmol/L (21-29); Hematocrit - POC 36 % PCV (42-52); Hemodilution- POC Yes; Hemoglobin Calculated - POC 12.3; Ionized Calcium - POC 1.09 mmol/L (1.12-1.27); O2 Saturation %Calculated-POC 99.7 5 (92-96); PCO2 - POC 42 mmHg (35-45); PO2 - POC 195 mmHg (80-100); POC Comment CPB/STAYED WARM; Potassium - POC 4.2 mmol/L (3.6-5.0); Sodium - POC 140 mmol/L (135-145); pH - POC 7.45 (7.35-7.45)
[2024-03-06 10:50] LABS: ACT+ - POC 541 Seconds (82-134)
[2024-03-06] MEDS: ANCEF 10 IV ×2 (11:28)
--- NOTE | 2024-03-06 11:29 | CM ---
pt in OR today, cm to follow
[2024-03-06 11:32] LABS: B.E. - POC 4.1 mmol/L; Glucose - POC 129 mg/dl (70-99); HCO3 - POC 29 mmol/L (21-29); Hematocrit - POC 35 % PCV (42-52); Hemodilution- POC Yes; Hemoglobin Calculated - POC 11.9; Ionized Calcium - POC 1.11 mmol/L (1.12-1.27); PCO2 - POC 42 mmHg (35-45); PO2 - POC 370 mmHg (80-100); POC Comment CPB/STAYED WARM; Potassium - POC 3.9 mmol/L (3.6-5.0); Sodium - POC 141 mmol/L (135-145); pH - POC 7.44 (7.35-7.45)
[2024-03-06 11:38] LABS: ACT+ - POC 98 Seconds (82-134)
[2024-03-06 11:56] LABS: B.E. - POC -1.3 mmol/L; Glucose - POC 128 mg/dl (70-99); HCO3 - POC 24 mmol/L (21-29); Hematocrit - POC 31 % PCV (42-52); Hemodilution- POC Yes; Hemoglobin Calculated - POC 10.6; Ionized Calcium - POC 1.33 mmol/L (1.12-1.27); O2 Saturation %Calculated-POC 97.8 5 (92-96); PCO2 - POC 42 mmHg (35-45); PO2 - POC 106 mmHg (80-100); POC Comment POST; Potassium - POC 3.6 mmol/L (3.6-5.0); Sodium - POC 142 mmol/L (135-145); pH - POC 7.36 (7.35-7.45)
--- NOTE | 2024-03-06 12:20 | W.PN.CT.SURG ---
CT Surgery Operative Note
-
Pre-op Diagnosis: CAD
CHF
LV dysfunction
Post-op Diagnosis: Same
Procedure: Cabg x 4
corbin- diag/lad
ao -svg - pda
svg-svg- om3
REVH
LAAL #45 clip
RSF
Primary Surgeon: Bernie
Assisting Surgeons: ERINN Alford - leg and chest
Specimen: None
Cultures: None
Complications / Blood Loss: None
Findings: Telly with ef 30 preop, some septal improvement postop, no new wma
Fatmata free of clot, post clip, no residual pouch or flow
good conduit
diffuse cad
[2024-03-06 12:42] LABS: Glucose - Point of Care 131 mg/dl (70-99)
[2024-03-06 12:43] LABS: B.E. 0.1 mmol/L; HCO3 25.4 mmol/L (21-28); Ionized Calcium 1.22 mMOL/L (1.15-1.33); O2 Saturation % 99.3 % (94-98); PCO2 43 mmHg (35-48); PO2 103 mmHg (83-108); Potassium 3.7 mMOL/L (3.5-5.1); Sodium 138 mMOL/L (136-145); pH 7.38 (7.35-7.45)
[2024-03-06 12:44] LABS: Hematocrit 31.4 % (39.0-52.0); Hemoglobin 10.7 g/dL (13.0-18.0); Platelet Count 172 10^3/uL (130-400)
[2024-03-06 12:47] LABS: Mixed Venous O2 Saturation 69.5 %
[2024-03-06] MEDS: NOVOLOG FLEXPEN SC ×2 (13:02→15:43)
[2024-03-06] MEDS: NEURONTIN PO ×2 (13:02→15:43)
[2024-03-06] MEDS: NSS 500 IV (13:03)
[2024-03-06] MEDS: THERAGRAN PO (13:03)
[2024-03-06] MEDS: TYLENOL PO (13:03)
[2024-03-06 13:04] LABS: Blood Urea Nitrogen 47 mg/dl (9-20); Estimated Creatinine Clearance 67 ml/min; Glucose 126 mg/dl (70-99); Magnesium 3.5 mg/dl (1.6-2.3)
[2024-03-06 13:10] LABS: APTT 30.6 Sec (23.4-35.0); INR 1.41; PT 17.1 Sec (11.4-14.6)
--- NOTE | 2024-03-06 13:16 | PTCARENOTE ---
Pt arrived from CVOR to CVICU at 1230. Pt is intubated and sedated. Currently SR with RBBB, HR 87. BP 122/64 MAP 82. PA 31/17, CVP 11. CO 4.68, CI 2.17, SVR 1093. Pulses palpable. Temp 96.9, warming blanket in place. #[address] at 22cm
right lip. Vent set to SIMV FiO2 60%, TV 600, PEEP 5, Pressure support 5, rate 14. Oral care completed. Pulse oximetry 95%. Mediastinal and left pleural chest tube in place to -20 suction, no sign of air leak or crepitus, drainage red in color.
Bowel sounds hypoactive. Huang catheter in place draining yellow urine. Huang care completed. Midsternal incision approximated with surgical adhesive and NON DESTRUCTIVE TESTING SCIENTIST. Right leg with Arturo wrap in place. Right groin puncture approximate NON DESTRUCTIVE TESTING SCIENTIST. Left radial Jazmin
in place. Right IJ cordis and [place] catheter at 46cm. Pt remains on insulin gtt per glycemic protocol. Levo currently at 2mcg/min. Precedex at 0.5mcg/kg/min. Post-op EKG and X-ray completed. Labs collected and reviewed, potassium being replaced
per order.
[2024-03-06] MEDS: KCL 50 IV ×2 (13:56→15:00)
[2024-03-06 14:05] LABS: Glucose - Point of Care 121 mg/dl (70-99)
--- NOTE | 2024-03-06 14:11 | PTCARENOTE ---
Addendum entered by Tyrell Iyer, GILBERT 03/06/24 16:18:
CT Miranda PLASENCIA, aware.
Original Note:
Chest tube upon arrival to CVICU with 140mL red drainage in atrium. Chest tube drainage 30ml within last hour.
--- NOTE | 2024-03-06 14:16 | W.PN.CD ---
Addendum entered and electronically signed by Que Lea MD 03/06/24 15:33:
I saw and examined the patient.
The SHEET HEATER HELPER's note was reviewed and I agree with the note.
Comment: 69M with HTN, PVCs, malignant melanoma s/p excision, hepatitis C (s/p Harvoni), hemochromatosis, RBBB (noted on EKG 09/2023), GERD/Dodd's esophagus, dyslipidemia, DM, and obesity presented with SOB. He was found to have an ischemic
cardiomyopathy and multivessel coronary artery disease.
- wean inotropes as able
- usual post op CABG care
Original Note:
Today's Communication / Plan
-
Postoperative management per CT surgery
Follow telemetry
Impression / Plan
-
BACKGROUND: 69M with HTN, PVCs, malignant melanoma s/p excision, hepatitis C (s/p Harvoni), hemochromatosis, RBBB (noted on EKG 09/2023), GERD/Dodd's esophagus, dyslipidemia, DM, and obesity presented with SOB. He was found to have an ischemic
cardiomyopathy and multivessel coronary artery disease.
MVCAD S/P CABG x 4 (CALDWELL�diagonal/LAD, ao�SVG�PDA, SVG�SVG�OM 3) & #[address] Gibbs 03/06/2024
-Pre-LVEF 30%, post EF unchanged with some septal improvement
-Postoperative management per CT surgery
-EKG with bifascicular block and anterior T wave inversion, rate 85, EKG in a.m.
-On Levophed at 2 mcg/kg/hr
-Follow telemetry
HFrEF/ICM (EF 35%), acute on chronic
-Found to have reduced LVEF of 35% and multivessel CAD on cardiac catheterization 02-28.
-GDMT as tolerated
-Beta kellee: Resume metoprolol succinate 50 mg twice daily when able
-SGLT2: Jardiance and Farxiga are > $450 a month
-ACEI/ARB: Can consider (Entresto $325/month)
-MRA: Can consider
-Diuretic: Assess daily
-CHF education, limit sodium/fluid
-Trend I/O, BMP, daily weight
HTN:
-On Levophed
Bifascicular block:
-RBBB noted 09/2023
-Continue crocheter
Type II DM, Hgba1c 7.1%
Obesity:
-Weight loss and regular exercise recommended.
-Thinks he may have sleep apnea, so should consider OP sleep study with his PCP
Subjective:
Operative notes reviewed.
Resting comfortably on ventilator
Physical Exam
Vital Signs/Labs
Vital Signs
Temp Pulse Resp BP Pulse Ox
97.5 F 87 14 141/91 97
03/06/24 14:00 03/06/24 14:00 03/06/24 14:00 03/06/24 05:01 03/06/24 14:00
03/05/24 03/06/24 03/07/24
06:59 06:59 06:59
Actual Weight 104.1 kg 103.2 kg
03/06/24 12:29
03/06/24 12:29
PT 17.1 Sec (11.4-14.6) H 03/06/24 12:29
INR 1.41 03/06/24 12:29
APTT 30.6 Sec (23.4-35.0) 03/06/24 12:29
Magnesium 3.5 mg/dl (1.6-2.3) H 03/06/24 12:29
Triglycerides 142 mg/dl (10-149) 02/29/24 08:04
LDL Cholesterol, Calc 135 mg/dl 02/29/24 08:04
VLDL Cholesterol, Calc 28 mg/dl (0-30) 02/29/24 08:04
HDL Cholesterol 40 mg/dl 09/24/24 08:04
02/28/24
02:54
Ptt-Y-Gnfxnzhtwur Pept 2630
Physical Exam
Constitutional: No acute distress and Comfortable
EENT: Anicteric and Moist mucous membranes
Cardiovascular: Rhythm & rate is regular, Pedal edema is absent and S1S2 is normal
Respiratory: Lungs clear to auscul. and Other (Mechanical ventilation)
GI: Soft, Distention absent, Flat, Non tender and Normal bowel sounds
Neuro/Psych: Other (Sedated)
Other: Skin (warm and dry)
Data Reviewed
-
Date of Service: March 06, 2024
EKG: Report Reviewed by me
Labs: Labs Reviewed by me
Old Records: Reviewed
--- NOTE | 2024-03-06 14:38 | CON.INTV ---
Consultation
Consultation Request
Date/Time Consultation Requested: 03/06/24
Date/Time Consultation Performed: 03/06/24
Performing Provider: Chelsey
Reason for Consultation: CVICU
Medical History
-
History of Present Illness:
Patient is a 69-year-old male with previous history of hypertension, diabetes presenting to ER with shortness of breath. Chest x-ray demonstrating small pleural effusions with mild vascular prominence with elevated proBNP. He is admitted to
with new osnet acute heart failure on 02/28/2024. Underwent catheterization 02/29/2024 which demonstrated elevated LVEDP, severe anterolateral and apical hypokinesis with EF 27%, triple-vessel CAD. CT surgery was consulted and patient underwent CABG
x 4 on 03/06/24, postoperatively transferred to CVICU for further management.
.
Past Medical History
Past Medical History: Other (see list below)
Social History
Tobacco: Former Smoker
Alcohol: None
Drug: None
Family History
Family History: Reviewed & Not Pertinent
Allergies / Home Medications
Allergies
Allergy/AdvReac Type Severity Reaction Status Date / Time
Penicillins Allergy Rash Verified 02/28/24 02:32
Home Medications
�Medication �Instructions �Recorded �Confirmed �Last Taken �Type
amlodipine 5 mg tablet 5 mg PO DAILY Blood pressure ##0 04/25/21 02/28/24 10/07/23 08:00 Rx
omeprazole 40 mg capsule,delayed 40 mg PO DAILY Gastrointestinal 04/25/21 02/28/24 10/08/23 05:00 Rx
release issue ##0
lisinopril 20 1 tab PO DAILY Blood Pressure 10/04/23 02/28/24 10/07/23 08:00 History
mg-hydrochlorothiazide 25 mg tablet
metformin 1,000 mg tablet 1,000 mg PO BID Diabetes 02/28/24 02/28/24 Unknown History
therapeutic multivitamin 1 tab PO DAILY Supplement 02/28/24 02/28/24 Unknown History
zinc sulfate 50 mg zinc (220 mg) 50 mg PO DAILY Supplement 02/28/24 02/28/24 Unknown History
tablet
Review of Systems
-
Unable to Obtain full review of systems at this time due to: Patient Intubation
Vitals / Labs / Diagnostic Testing
Vital Signs
Temp Pulse Resp BP Pulse Ox
97.5 F 88 14 141/91 95
03/06/24 14:00 03/06/24 14:15 03/06/24 14:00 03/06/24 05:01 03/06/24 14:15
Lab Data
03/06/24 12:29
Laboratory Results
03/06/24
12:29
PT 17.1 H
INR 1.41
APTT 30.6
pH 7.38
pCO2 43
pO2 103
HCO3 25.4
O2 Delivery Level
Diagnostic Testing:
Physical Exam
-
HEENT: Normocephalic, Anicteric and Moist Mucous Membranes
Cardiovascular: S1/S2 and Regular Rhythm
Respiratory: Non-Labored Respirations and Other (ETT/chest tubes in place)
GI: Soft, Non Distended and Non Tender
Neurology: Other (sedated/intubated)
Skin: Warm, Dry and Good Color
General: Comfortable and Other (NAD)
Assessment
-
Patient is a 69-year-old male with previous history of hypertension, diabetes presenting to ER with shortness of breath. Chest x-ray demonstrating small pleural effusions with mild vascular prominence with elevated proBNP. He is admitted to
with new osnet acute heart failure on 02/28/2024. Underwent catheterization 02/29/2024 which demonstrated elevated LVEDP, severe anterolateral and apical hypokinesis with EF 27%, triple-vessel CAD. CT surgery was consulted and patient underwent CABG
x 4 on 03/06/24, postoperatively transferred to CVICU for further management.
Severe multivessel CAD s/p CABG 03/06/24
Perioperative mechanical ventilation
Acute systolic CHF, EF 27%
ICM (LVEF 35% per echo 02/27)
Postoperative anemia, hemoglobin 10.7
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
Hypertension
T2DM (hgb A1C 7.1)
Hep C --> Harvoni
GERD/Dodd's esophagitis
Hemochromatosis, hereditary
Melanoma s/p excision upper back 08/2018
Benign enlargement of prostate s/p TURP
Abnormal PSA s/p prostate bx-benign
Neck surgery-herniated disk
L knee replacement 03/2021
R knee replacement 10/2021
Epigastric hernia repair
Laparoscopic cholecystectomy Dr. Dove 10/2023
S/P bilateral TKA
Obesity BMI 34
Former IVDA (sober for decades)
Former tobacco abuse (27 pack years. Quit >30 years ago)
Plan
S/p CAB x 4 POD #0
Titrate off pressors per protocol
ECHO reviewed with low function, EF 27% with severe anterolateral and apical hypokinesis
PA catheter readings reviewed
Management of chest tubes per primary service
Intubated/sedated, initiate SAT when able
Pain control
RASS goal of 0 to -1
Intubated for procedure, SBT trial when patient able to spontaneously breath
Current vent settings: SIMV 600/14/40/5+
ABG(s) reviewed/adequate
CXR with no obvious opacities/infiltrates, low lung volumes, ETT in good position, lines/tubes in place
Extubate per protocol
Maintain supplement oxygen as needed
No prior history of pulmonary disease, former smoker
Prior PFTs reviewed--no OLD, air trapping present
Can add nebulizers if needed for symptoms
Aspiration precautions
Encouraged incentive spirometry, OOB/ambulation/early mobility
Advance diet as tolerated following extubation
GI prophylaxis if indicated for mechanical ventilation >48 hours
Monitor critical I/O's
Huang/chest tube output
Hb/platelets postoperatively stable
Trend CBC for now
Can transfuse if indicated for Hb <7, plt <50 in surgical patients
DVT prophylaxis including SCDs
Insulin protocol initiated and ongoing
Transition to SQ/off as indicated per team
We will follow
Diagnostic Data
Chest X-Ray: 03/06/24- Endotracheal tube tip projects over the midthoracic trachea. Right internal jugular approach pulmonary artery catheter tip projects within the right main pulmonary artery. Left-sided chest tube tip projects within the left
midlung. Left greater than right mid/lower lung atelectasis. No visible pneumothorax.
03/01/24- Interval improvement in pulmonary edema and small bilateral pleural effusions.
CT Scan: CHEST 02/28/24- IMPRESSION:
1. No evidence for pulmonary embolism.
2. Small bilateral pleural effusions with scattered areas of interlobular septal thickening compatible with mild pulmonary edema.
3. Nonspecific prominence of multiple mediastinal and hilar lymph nodes.
LHC 02/29/24- CONCLUSIONS
1:�Elevated LVEDP
2:�Severe anterolateral and apical hypokinesis with EF 27%
3. Triple-vessel CAD as described
4. Given the presence of severe left ventricular dysfunction, triple-vessel CAD and diabetes mellitus CABG is recommended as the optimal revascularization strategy. Optimal revascularization would include grafting of the LAD, D2 if sizable enough
for accepting a graft, OM 3, and RPDA
5. Continue diuresis and GDMT for systolic heart failure
Echo: 02/28/24- Normal LV size with moderately reduced systolic function. Estimated ejection fraction of 35%. Global diffuse hypokinesis. Mild to moderate LVH. Normal right ventricular size and function. No significant valvular disease. Compared
to prior from August 08, 2018, EF is now moderately reduced estimated at 35% previously normal 55-60%.
PFT's: 02/29/24 - FVC was 2.64L or 67% predicted. FEV1 was 1.94L or 64% predicted. Ratio 73. TLC 79%, RV/TLC Ratio was 50 / 143% predicted. DLCO 90%
Spirometry suggests restriction. There is no significant bronchodilator response. Lung volumes demonstrate mild restriction with significant airtrapping by RV/TLC criteria. The diffusion capacity is normal.
Reports and relevant images were personally reviewed.
-----
Critical care time 51 mins -- this includes review of history, physical exam, medications, hemodynamic/ventilator parameters, laboratory data, imaging and discussion with house staff, pharmacy, respiratory therapy, supervisor paste mixing, and nursing.
[2024-03-06 15:00] LABS: Glucose - Point of Care 119 mg/dl (70-99)
[2024-03-06] MEDS: OFIRMEV 100 IV (15:20)
[2024-03-06] MEDS: PACERONE PO (15:43)
[2024-03-06 16:00] LABS: Glucose - Point of Care 135 mg/dl (70-99)
--- NOTE | 2024-03-06 16:12 | PTCARENOTE ---
Pt awake, calm, able to move all extremities and follow commands appropriately. CPAP trial initiated at 1530. ABG collected and awaiting result to review. Pt washed with CHG cloth bath, linens changed. Pt remains SR with RBBB, HR 90's. BP 102/54 MAP
70. PA 32/17, CVP 10, CO 5.36, CI 2.48, SVR 955. Chest tube drainage 30ml within the last hour. Leon hugger off at this time, temp 99.1. Pt remains on insulin gtt. Levo at 4mcg/min. Precedex off.
[2024-03-06 16:25] LABS: Hematocrit 32.7 % (39.0-52.0); Hemoglobin 11.2 g/dL (13.0-18.0)
[2024-03-06 16:26] LABS: B.E. 0.5 mmol/L; HCO3 25.4 mmol/L (21-28); PCO2 41 mmHg (35-48); PO2 77 mmHg (83-108)
[2024-03-06] MEDS: DILAUDID 0.5 MG IV ×3 (16:42→23:18)
--- NOTE | 2024-03-06 16:45 | PTCARENOTE ---
ABG results reviewed with CT Miranda PLASENCIA. Pt extubated to 6L nasal cannula without issue at 1633. Pt able to state name, . Achieved 750 with IS, continued use encouraged. Reviewed plan of care with patient. PRN Dilaudid administered for pain
relief.
[2024-03-06 16:58] LABS: Glucose - Point of Care 117 mg/dl (70-99)
[2024-03-06] MEDS: LR 250 ML IV (17:11)
[2024-03-06] MEDS: ROXICODONE 5 MG PO (17:27)
[2024-03-06] MEDS: LIPITOR 40 MG PO (17:30)
[2024-03-06] MEDS: LOW STRENGTH ASPIRIN 81 MG PO (17:31)
--- NOTE | 2024-03-06 18:17 | PTCARENOTE ---
Pt remains SR with RBBB, HR 90's. BP 100/50 MAP 68, PA 27/14, CVP 6, CO 5.10, CI 2.36, SVR 925. Levo at 6mcg/min. Discussed decreasing CVP, BP, and urine output, along with increasing HR, and increasing Levo requirements with CT Miranda PLASENCIA. Pt given
250mL LR bolus per PRN order at 1711. Sensitivities tested on epicardial V wire, now set to VVI 50/3/2.
[2024-03-06 19:07] LABS: Glucose - Point of Care 112 mg/dl (70-99)
[2024-03-06] MEDS: SENOKOT-S 1 TABLET PO (19:46)
[2024-03-06] MEDS: ANCEF 5 IV (19:46)
--- NOTE | 2024-03-06 20:22 | PTCARENOTE ---
Assume care of the patient at 1900. Patient resting in bed, c/o 7/10 midsternal CP. AOx3, endorses numbness in his B/L hands. HRR, distant heart sounds auscultated. No edema, epicardial v wire present attached to temporary pacemaker settings 50/3/2.
Pulses present, pedals weak on palpation. Lungs clear, dim at the bases, on 4LNC, IS attempted, volume 500. CT x 2 present, sanguinous drainage into chamber, dressing intact. Patient tolerating small sips of clear, able to take PO medications
without issue. Abdomen SNT, hypoactive BS. Huang catheter present draining clear yellow urine. Midline sternal incision CDI EMPLOYEE BENEFITS COORDINATOR with dermabond, R groin puncture intact, RSVG site intact with rea wrap on RLE, R radial cath site CDI AVI. [place]-hawa at
46, RIJ cordis a L radial jonathan dressing intact. See worklist for titration and I/O details.
[2024-03-06 20:58] LABS: Glucose - Point of Care 109 mg/dl (70-99)
[2024-03-06] MEDS: NEURONTIN 100 MG PO (22:01)
[2024-03-06] MEDS: PACERONE 200 MG PO (22:01)
[2024-03-06] MEDS: TYLENOL 1000 MG PO (22:01)
[2024-03-06] MEDS: ZOFRAN 4 MG IV (22:08)
[2024-03-06 23:03] LABS: Glucose - Point of Care 122 mg/dl (70-99)
[2024-03-07] VITALS (31 sets, daily range): BP systolic 87–127; BP diastolic 50–95; PULSE 94; O2SAT 92–95; BMI 34.6
--- NOTE | 2024-03-07 | PTCARENOTE ---
Patient remains in bed, sleeping between care, IS encouraged, education regarding splinting with the heart pillow provided to encourage deeper breaths. Patient desatting, O2 upped to 6LPM. Stable CI/CO, VSS, patient now in sinus tachycardia and c/o
continued pain, see MAR for pharmacological intervention. See worklist for titration details.
[2024-03-07 01:06] LABS: Glucose - Point of Care 130 mg/dl (70-99)
[2024-03-07] MEDS: TORADOL 15 MG IV (01:23)
--- NOTE | 2024-03-07 02:05 | PTCARENOTE ---
Slight increase in output from CTs, 75 mLs this hour, previously 5 mLs/hour, 20 mL of urine in the flores canister, and ST on monitor. ERINN Chacon made aware, at bedside to assess. VSS off of Levophed. Assessment of needs ongoing.
[2024-03-07 03:04] LABS: Glucose - Point of Care 111 mg/dl (70-99)
[2024-03-07 03:27] LABS: Hematocrit 30.9 % (39.0-52.0); Hemoglobin 10.6 g/dL (13.0-18.0); Mean Corp Hgb Conc. 34.3 g/dL (33.0-37.0); Mean Corpuscular Hgb 29.9 pg (27.0-31.0); Mean Platelet Volume 11.8 fL (7.4-10.4); Platelet Count 203 10^3/uL (130-400); Red Blood Cell Count 3.55 10^6/uL (4.70-6.10); Red Cell Dist. Width 12.7 % (11.5-14.5); White Blood Cell Count 21.7 10^3/uL (4.8-10.8)
[2024-03-07] MEDS: ANCEF 5 IV ×2 (03:30→13:52)
[2024-03-07] MEDS: ROXICODONE 5 MG PO ×4 (03:31→21:39)
[2024-03-07 03:54] LABS: Blood Urea Nitrogen 48 mg/dl (9-20); Calcium 8.6 mg/dl (8.4-10.2); Carbon Dioxide 24 mmol/L (22-30); Chloride 108 mmol/L (98-107); Estimated Creatinine Clearance 57 ml/min; Glucose 113 mg/dl (70-99); Magnesium 3.1 mg/dl (1.6-2.3); Potassium 4.7 mmol/L (3.5-5.1); Sodium 142 mmol/L (135-145); eGFR 54.07
[2024-03-07 05:06] LABS: Glucose - Point of Care 112 mg/dl (70-99)
[2024-03-07] MEDS: TYLENOL 1000 MG PO ×3 (05:06→21:39)
--- NOTE | 2024-03-07 05:23 | W.PN.CT ---
Today's Communication / Plan
-
-pod #1
-no issues overnight
-CI 2.41, CO 5.21. Drips: Insulin
-CT output: L pleur and med: 200/475 in 12/24 hrs (CTs dumped 75 at 2 am and 40 at 3 am dark blood- BP stable 115/50, tachy 100s)-monitor
-deline
-? keep Huang for 24 hrs (hx BPH). Cr 1.4 today (1.2 preop)
-continue insulin
-current meds (ASA, Plavix, Lipitor, Lopressor, Amio, Protonix).
-encourage IS, OOB
Assessment / Plan
-
Assessment:
-Severe multivessel CAD- s/p Cabg x4 (corbin- diag/lad, ao -svg - pda, svg-svg- om3); REVH; LAAL #45 clip on 03/06/[address] Gibbs, pod #1
-Intraop Telly with EF 30 preop, some septal improvement postop, no new wma. Fatmata free of clot, post clip, no residual pouch or flow
-Acute systolic CHF
-ICM (LVEF 35% per echo 02/27)
-Hypertension
-T2DM (hgb A1C 7.1)
-Class 2 obesity (BMI 35)
-Suspected DELMAR
-Hepatitis C s/p Harvoni
-Former IVDA (sober for decades)
-Former tobacco abuse (Quit 34 years ago)
-Hereditary Hemochromatosis
-Melanoma S/p excision
-GERD/Dodd's esophagitis
-BPH S/P TURP
-S/P bilateral TKA
-S/P cholecystectomy
-Pre-existing RBBB/LAFB
-Acute postop blood loss anemia- stable
-Acute postop atelectasis
-Acute postop hypovolemia with subsequent hypervolemia
Discussed patient care with: Nursing and Care Team
Subjective
Procedure
- s/p Cabg x4 (corbin- diag/lad, ao -svg - pda, svg-svg- om3); REVH; LAAL #45 clip on 03/06/[address] Gibbs
-
Date of Service: March 07, 2024
Objective Data
-
PT 17.1 Sec (11.4-14.6) H 03/06/24 12:29
INR 1.41 03/06/24 12:29
APTT 30.6 Sec (23.4-35.0) 03/06/24 12:29
Vital Signs
Vital Signs
Temp Pulse Resp BP Pulse Ox
98.2 F 100 21 116/67 91
03/07/24 01:00 03/07/24 01:00 03/07/24 01:00 03/07/24 01:00 03/07/24 01:00
CT Intake/Output/Weight
03/06/24 03/06/24 03/07/24
06:59 18:59 06:59
Intake Total 809.6 / 1238.2 428.6 / 1238.2
Output Total 730 / 1080 350 / 1080
Balance 79.6 / 158.2 78.6 / 158.2
SaO2: 91
Physical Exam
-
General: Awake and AOx3
Cardiovascular: Regular rate & rhythm, No Murmurs and No Rub
Respiratory: Decreased Breath Sounds
Sternum: Stable
Incision: Clean, Dry and Intact
Extremities: No Edema
Abdomen: soft, nontender, nondistended, decreased + bowel sounds
Data Reviewed
-
Lab Results: Results Reviewed
Medications: Active Meds Reviewed
Chest X-Ray: Report Reviewed and Image Reviewed
ECG: Report Reviewed and Image Reviewed
--- NOTE | 2024-03-07 05:46 | PTCARENOTE ---
Patient reassessed, VS stable, delined, flores to remain in place for elevated Cr 1.4 and low UOP. Patient c/o pain but in good spirits. 6LNC maintained. See worklist. CHG bath, new tele lead stickers, patient assisted OOB to chair.
[2024-03-07 07:14] LABS: Glucose - Point of Care 146 mg/dl (70-99)
--- NOTE | 2024-03-07 07:55 | W.PN.ANS.POP ---
Anesthesia Post Operative
- Anesthesia Post Op Note
Vital Signs Stable-See Nursing Note: Yes
Airway Patent: Yes
Adequate Pain Control: Yes
Change in Mental Status: No
Current Postoperative Nausea & Vomiting: No
Anesthesia Complications: No
General Anesthetic Recall: No
Unplanned Admission: No
Post Op Hydration Adequate: Yes
[2024-03-07 08:03] LABS: Glucose - Point of Care 135 mg/dl (70-99)
[2024-03-07] MEDS: LOW STRENGTH ASPIRIN 81 MG PO (08:06)
[2024-03-07] MEDS: SENOKOT-S 1 TABLET PO ×2 (08:06→19:52)
[2024-03-07] MEDS: FLEXERIL 5 MG PO (08:06)
[2024-03-07] MEDS: THERAGRAN 1 TABLET PO (08:06)
[2024-03-07] MEDS: MAGNESIUM OXIDE PO ×2 (08:06→08:14)
[2024-03-07] MEDS: PLAVIX 75 MG PO (08:06)
[2024-03-07] MEDS: PACERONE 200 MG PO ×3 (08:07→21:39)
[2024-03-07] MEDS: BACTROBAN 2% OINTMENT 1 APPLIC NASAL ×2 (08:07→19:53)
[2024-03-07] MEDS: PROTONIX 40 MG PO (08:07)
[2024-03-07] MEDS: LIDOCAINE 4% PATCH 1 PATCH TOPICAL (08:07)
[2024-03-07] MEDS: LOPRESSOR 12.5 MG PO ×2 (08:07→14:25)
[2024-03-07] MEDS: NOVOLOG FLEXPEN 4 UNITS SC ×2 (08:07→18:00)
[2024-03-07] MEDS: NEURONTIN 100 MG PO ×3 (08:07→21:38)
--- NOTE | 2024-03-07 08:15 | PN.DE.MGMTRT ---
Insulin Management
- -
03/07/2024 Diabetes Management Consult
Patient admitted 02/27 with difficulty breathing, increasing SOB, new CHF. PMH CAD, Dodd's esophagus, hepatitis, melanoma, HTN, diabetes, GERD. Prior to admission was taking metformin 1000 mg BID. A1C on admission 7.1%. S/P cardiac cath 02/28.
Patient is awake, alert and oriented able to discuss diabetes management. He did not test his glucose prior to admission.
POD 1 s/p CABG x 4, cr 1.4, eGFR 54.07. Glycemic protocol insulin infusion currently @ 4.5 units per hour. Has required 2.3 to 4.5 units overnight. Will continue glycemic protocol today. To start 1800 calorie diet at lunch, ordered. Will discuss
SGLT2 with patient and ask CM to assess cost.
Patient is drowsy s/p pain med. Will provide monitor education 03/08.
Discussed with nurse.
Diabetes History
- -
Type of Diabetes: 2
Pre-Admission Diabetes Regimen
03/06/24 03/07/24
12:29 03:08
Creatinine 1.2 1.4 H
Lab Results
Hemoglobin A1c 7.1 % (4.0-5.6) H 02/29/24 08:04
Insulin Pump Settings
IP Diabetes Regimen
03/06/24 03/06/24 03/06/24
12:29 12:31 14:04
Glucose 126 H
POC Glucose 131 H 121 H
03/06/24 03/06/24 03/06/24
14:58 15:59 16:55
Glucose
POC Glucose 119 H 135 H 117 H
03/06/24 03/06/24 03/06/24
19:05 20:57 23:01
Glucose
POC Glucose 112 H 109 H 122 H
03/07/24 03/07/24 03/07/24
01:04 03:03 03:08
Glucose 113 H
POC Glucose 130 H 111 H
03/07/24 03/07/24 03/07/24
05:04 06:58 08:01
Glucose
POC Glucose 112 H 146 H 135 H
Patient Education
--- NOTE | 2024-03-07 08:31 | PTCARENOTE ---
Assumed care of patient at 0700. Pt is awake, alert, and oriented. Pt with continued complaints of sternal pain, PRN Roxicodone and Flexeril administered per order. Pt remains SR with RBBB, HR 90's. BP 105/53 MAP 70. Epicardial V wire in place set
to 50/3/2. Pulse oximetry 91-98% on 6L nasal cannula. Mediastinal and left pleural chest tube in place draining dark red drainage, no sign of air leak or crepitus. Pt with no nausea at this time. Tolerating PO medications and clear liquid breakfast.
Huang catheter in place draining small amounts of yellow urine. CT Miranda PLASENCIA, notified of 5ml urine output within the last hour. Midsternal incision approximated and INTERNET APPLICATION DEVELOPER. Right leg incision with rea wrap overlay in place. Right groin puncture
intact, INTERNET APPLICATION DEVELOPER. Pt remains on insulin gtt per glycemic protocol. Pt currently resting OOB in chair with call hassan within reach.
[2024-03-07 09:09] LABS: Glucose - Point of Care 143 mg/dl (70-99)
--- NOTE | 2024-03-07 10:20 | PTCARENOTE ---
Mediastinal chest tube d/c'd per order. Left pleural chest tube to bulb. Huang d/c'd at 0930, DTV by 1530. Pt remains SR with RBBB, HR 90's. BP 94/51 MAP 63. Pulse oximetry 94% on 4L nasal cannula.
[2024-03-07 10:23] LABS: Glucose - Point of Care 127 mg/dl (70-99)
[2024-03-07] MEDS: NOVOLIN R INSULIN INFUSION 100 IV (10:25)
[2024-03-07 11:11] LABS: Glucose - Point of Care 115 mg/dl (70-99)
--- NOTE | 2024-03-07 11:16 | W.PN.CD ---
Today's Communication / Plan
-
Continue postoperative management per CT surgery. Resume GDMT for heart failure when able.
Impression / Plan
-
BACKGROUND: 69M with HTN, PVCs, malignant melanoma s/p excision, hepatitis C (s/p Harvoni), hemochromatosis, RBBB (noted on EKG 09/2023), GERD/Dodd's esophagus, dyslipidemia, DM, and obesity presented with SOB. He was found to have an ischemic
cardiomyopathy and multivessel coronary artery disease now s/p CABG and SHEREEN clip.
MVCAD S/P CABG x 4 (CALDWELL�diagonal/LAD, ao�SVG�PDA, SVG�SVG�OM 3) & #[address] Gibbs 03/06/2024
-Pre-LVEF 30%, post EF unchanged with some septal improvement
-Postoperative management per CT surgery
-EKG with bifascicular block and anterior T wave inversion, unchanged
-Now off of vasopressors
-Follow telemetry
HFrEF/ICM (EF 35%), acute on chronic
-Found to have reduced LVEF of 35% and multivessel CAD on cardiac catheterization 02-28.
-GDMT as tolerated
-Beta kellee: Uptitrate metoprolol as tolerated
-SGLT2: Jardiance and Farxiga are > $450 a month
-ACEI/ARB: Resume home Lisinopril as tolerated (Entresto $325/month)
-MRA: Can consider as outpatiet
-Diuretic: Assess daily
-CHF education, limit sodium/fluid
-Trend I/O, BMP, daily weight
HTN:
-Resume Amlodipine on discharge
Bifascicular block:
-RBBB noted 09/2023
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
Type II DM, Hgba1c 7.1%
Obesity:
-Weight loss and regular exercise recommended.
-Thinks he may have sleep apnea, so should consider OP sleep study with his PCP
Subjective:
Doing well this morning. Some pain around sternal wound but site looks clean. Was up and out of bed already. No SOB, swelling, or chest pain.
Physical Exam
Vital Signs/Labs
Vital Signs
Temp Pulse Resp BP Pulse Ox
98 F 92 20 90/57 94
03/07/24 11:00 03/07/24 11:00 03/07/24 11:00 03/07/24 11:00 03/07/24 11:00
03/06/24 03/07/24 03/08/24
06:59 06:59 06:59
Actual Weight 103.2 kg 103.3 kg
03/07/24 03:08
03/07/24 03:08
PT 17.1 Sec (11.4-14.6) H 03/06/24 12:29
INR 1.41 03/06/24 12:29
APTT 30.6 Sec (23.4-35.0) 03/06/24 12:29
Magnesium 3.1 mg/dl (1.6-2.3) H 03/07/24 03:08
Triglycerides 142 mg/dl (10-149) 02/29/24 08:04
LDL Cholesterol, Calc 135 mg/dl 02/29/24 08:04
VLDL Cholesterol, Calc 28 mg/dl (0-30) 02/29/24 08:04
HDL Cholesterol 40 mg/dl 02/29/24 08:04
02/28/24
02:54
Gdg-W-Njxxwfxhcyn Pept 2630
Physical Exam
Constitutional: No acute distress and Comfortable
Cardiovascular: Rhythm & rate is regular, Pedal edema is absent and JVD pressure is normal
Respiratory: Respiratory effort normal
GI: Soft
Data Reviewed
-
Date of Service: March 07, 2024
Medical Decision Making: Reviewed Test Results
EKG: Tracing Personally Visualized and interpreted
Echo: Report Reviewed by me
X-Ray/CT/US/MRI/NUC/PET: Image Personally Visualized and interpreted
Labs: Labs Reviewed by me
Total Time Spent with Patient (in minutes): 10
--- NOTE | 2024-03-07 11:39 | PTCARENOTE ---
Received pt from day shift RN' pt AAOx3 and resting comfortably in bed; NSR RBBB PACs and VSS; RIJ Cordis and PIV x1 patent; Epicardial V wire set to back up 50/382 and no pacing noted; Lungs diminished; IS to 750; CT x1 to bulb; hypoactive bowel
sounds; pt DTV at 1530; palpable pulses throughout; no edema noted; all surgical sites C/D/I; Insulin drip infusing per Glycemic protocol see flow sheet for details; see nursing documentation for further details.
--- NOTE | 2024-03-07 12:28 | W.PN.INTV ---
Today's Communication / Plan
Recommendations
Doing well post extubation, on low O2
Wean O2 as tolerated
Chest tube management per team
Transitioning off gtts
Pain control
IS, ambulation/OOB encouraged
Transfer initiated to [facility], we will sign off upon transfer
Assessment
-
Patient is a 69-year-old male with previous history of hypertension, diabetes presenting to ER with shortness of breath. Chest x-ray demonstrating small pleural effusions with mild vascular prominence with elevated proBNP. He is admitted to
with new osnet acute heart failure on 02/28/2024. Underwent catheterization 02/29/2024 which demonstrated elevated LVEDP, severe anterolateral and apical hypokinesis with EF 27%, triple-vessel CAD. CT surgery was consulted and patient underwent CABG
x 4 on 03/06/24, postoperatively transferred to CVICU for further management.
Severe multivessel CAD s/p CABG 03/06/24
Perioperative mechanical ventilation
Acute systolic CHF, EF 27%
ICM (LVEF 35% per echo 02/27)
Postoperative anemia, hemoglobin 10.7
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
Hypertension
T2DM (hgb A1C 7.1)
Hep C --> Harvoni
GERD/Dodd's esophagitis
Hemochromatosis, hereditary
Melanoma s/p excision upper back 08/2018
Benign enlargement of prostate s/p TURP
Abnormal PSA s/p prostate bx-benign
Neck surgery-herniated disk
L knee replacement 03/2021
R knee replacement 10/2021
Epigastric hernia repair
Laparoscopic cholecystectomy Dr. Dove 10/2023
S/P bilateral TKA
Obesity BMI 34
Former IVDA (sober for decades)
Former tobacco abuse (27 pack years. Quit >30 years ago)
Plan
S/p CAB x 4 POD #1
Titrated off pressors per protocol
ECHO reviewed with low function, EF 27% with severe anterolateral and apical hypokinesis
PA catheter readings reviewed
Management of chest tubes per primary service
Pain control
RASS goal of 0 to -1
Intubated for procedure, extubated and doing well
ABG(s) reviewed/adequate
CXR with stable postop changes
Maintain supplement oxygen as needed
No prior history of pulmonary disease, former smoker
Prior PFTs reviewed--no OLD, air trapping present
Can add nebulizers if needed for symptoms
Aspiration precautions
Encouraged incentive spirometry, OOB/ambulation/early mobility
Advance diet as tolerated following extubation
GI prophylaxis if indicated for mechanical ventilation >48 hours
Monitor critical I/O's
Huang/chest tube output
Hb/platelets postoperatively stable
Trend CBC for now
Can transfuse if indicated for Hb <7, plt <50 in surgical patients
DVT prophylaxis including SCDs
Insulin protocol initiated and titrating off
Transition to SQ/off as indicated per team
Diagnostic Data
Chest X-Ray: 03/06/24- Endotracheal tube tip projects over the midthoracic trachea. Right internal jugular approach pulmonary artery catheter tip projects within the right main pulmonary artery. Left-sided chest tube tip projects within the left
midlung. Left greater than right mid/lower lung atelectasis. No visible pneumothorax.
03/01/24- Interval improvement in pulmonary edema and small bilateral pleural effusions.
CT Scan: CHEST 02/28/24- IMPRESSION:
1. No evidence for pulmonary embolism.
2. Small bilateral pleural effusions with scattered areas of interlobular septal thickening compatible with mild pulmonary edema.
3. Nonspecific prominence of multiple mediastinal and hilar lymph nodes.
[facility] 02/29/24- CONCLUSIONS
1:�Elevated LVEDP
2:�Severe anterolateral and apical hypokinesis with EF 27%
3. Triple-vessel CAD as described
4. Given the presence of severe left ventricular dysfunction, triple-vessel CAD and diabetes mellitus CABG is recommended as the optimal revascularization strategy. Optimal revascularization would include grafting of the LAD, D2 if sizable enough
for accepting a graft, OM 3, and RPDA
5. Continue diuresis and GDMT for systolic heart failure
Echo: 02/28/24- Normal LV size with moderately reduced systolic function. Estimated ejection fraction of 35%. Global diffuse hypokinesis. Mild to moderate LVH. Normal right ventricular size and function. No significant valvular disease. Compared
to prior from August 08, 2018, EF is now moderately reduced estimated at 35% previously normal 55-60%.
PFT's: 02/29/24 - FVC was 2.64L or 67% predicted. FEV1 was 1.94L or 64% predicted. Ratio 73. TLC 79%, RV/TLC Ratio was 50 / 143% predicted. DLCO 90%
Spirometry suggests restriction. There is no significant bronchodilator response. Lung volumes demonstrate mild restriction with significant airtrapping by RV/TLC criteria. The diffusion capacity is normal.
Reports and relevant images were personally reviewed.
-----
Critical care time 31 mins -- this includes review of history, physical exam, medications, hemodynamic/ventilator parameters, laboratory data, imaging and discussion with house staff, pharmacy, respiratory therapy, associate software engineer, and nursing.
Subjective Dataa
Subjective Data
Date of Service:
Date of Service: March 07, 2024
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
Subjective:
Doing well, remains on low O2
Extubated and tolerated
Sitting in chair, some pain noted
Objective Data
Data Reviewed
Vital Signs / I&O / Oxygen:
Vital Signs
Temp Pulse Resp BP Pulse Ox
98 F 92 18 105/57 96
03/07/24 11:00 03/07/24 12:00 03/07/24 12:00 03/07/24 12:00 03/07/24 12:00
Intake and Output
03/06/24 03/07/24 03/08/24
06:59 06:59 06:59
Intake Total 1460.3 / 1474.8 85.0 / 85.0
Output Total 1355 / 1415 200 / 200
Balance 105.3 / 59.8 -115.0 / -115.0
SaO2 [CPAP] 97
SaO2 [SIMV] 93
SaO2 96
Nasal Cannula flow liters per 4
minute
Physical Exam
General: Comfortable and Other (NAD)
HEENT: Normocephalic, Anicteric and Moist Mucous Membranes
Cardiovascular: S1-S2 and Regular Rhythm
Respiratory: Clear, Non-Labored Respirations and Chest Tube
GI: Soft, Non Distended and Non Tender
Neurology: Awake, Alert, Oriented and No Motor Deficits
Skin: Warm, Dry and Good Color
Labs/Micro/Reports
Lab Data
03/07/24 03:08
03/07/24 03:08
Laboratory Results
03/06/24 03/06/24
12:29 15:57
PT 17.1 H
INR 1.41
APTT 30.6
pH 7.38 7.40
pCO2 43 41
pO2 103 77 L
HCO3 25.4 25.4
O2 Delivery Level
[2024-03-07] MEDS: NSS IV (13:42)
[2024-03-07 14:26] LABS: Glucose - Point of Care 77 mg/dl (70-99)
[2024-03-07 15:00] LABS: Glucose - Point of Care 82 mg/dl (70-99)
[2024-03-07] MEDS: NOVOLOG FLEXPEN SC (15:07)
[2024-03-07] MEDS: LR 250 IV (16:31)
[2024-03-07] MEDS: LIPITOR 40 MG PO (16:51)
[2024-03-07 16:58] LABS: Glucose - Point of Care 117 mg/dl (70-99)
[2024-03-07 16:58] LABS: Glucose - Point of Care 120 mg/dl (70-99)
--- NOTE | 2024-03-07 17:07 | CM ---
priced medications with [facility] ( dedicated unit) [phone]/id [id number]
jardiance first month 543- he has a 541 remaining deductible/ after that his cost is $11/month
farxiga- first month 517- after the deductible is paid then $11/month
entresto first month 569- then he pays 25% cost of the med ( approx 142/month)
[2024-03-07 18:03] LABS: Glucose - Point of Care 149 mg/dl (70-99)
[2024-03-07 19:07] LABS: Glucose - Point of Care 185 mg/dl (70-99)
[2024-03-07] MEDS: LOPRESSOR 25 MG PO (19:50)
[2024-03-07] MEDS: MAGNESIUM OXIDE 500 MG PO (19:52)
[2024-03-07 20:01] LABS: Glucose - Point of Care 208 mg/dl (70-99)
[2024-03-07 21:12] LABS: Glucose - Point of Care 235 mg/dl (70-99)
--- NOTE | 2024-03-07 21:55 | PTCARENOTE ---
Assumed care of patient at 1900. Patient found oob in chair at time of assessment. Patient is Aox4, follow commands appropriately, moves all extremities. Lung sounds are diminished at the bases, saO2 96% on 4L via NC, there is a R pleural CT in
place to bulb suction draining red sanguineous. Heart sounds have a regular rate and rhythm, patient is SR with BBB on the monitor. Patient has normal palpable pulses and no observable edema. Patient has active BS throughout all four quadrants with
+flatus reported. Patient is DTV scanned earlier for 88cc in bladder will rescan after patient attempts void. Patient has a sternal incision approx with surg adhesive AVI, CT wounds with ABD dressing that is CDI, a R groin puncture approx with surg
adhesive BOX CAR BRACER hematoma noted around site soft nontender ecchymotic, and a RLE incision approx with surg adhesive BOX CAR BRACER. Patient has R IJ cordis receiving KVO and R FA PIV with insulin gtt. VSS. Monitoring pain. Patient stable at this time.
[2024-03-07 22:11] LABS: Glucose - Point of Care 181 mg/dl (70-99)
[2024-03-07 23:04] LABS: Glucose - Point of Care 157 mg/dl (70-99)
[2024-03-08] VITALS (36 sets, daily range): BP systolic 83–146; BP diastolic 44–78; PULSE 93; O2SAT 97–99; BMI 36.0
--- NOTE | 2024-03-08 | PTCARENOTE ---
Patient reassessed. VSS. Frequent accuchecks for glycemic protocol titration. Pain management with scheduled medications and Ria 5. Patient had successful small void 100mL, but on bladderscan only had 52mL in bladder notably low urine production
reported to CT PA. Patient has no complaints at this time.
[2024-03-08 00:07] LABS: Glucose - Point of Care 93 mg/dl (70-99)
[2024-03-08 01:13] LABS: Glucose - Point of Care 76 mg/dl (70-99)
[2024-03-08] MEDS: LR 250 IV ×2 (01:34→05:09)
[2024-03-08] MEDS: ROXICODONE 5 MG PO ×3 (03:10→22:20)
[2024-03-08 03:34] LABS: Hematocrit 27.1 % (39.0-52.0); Mean Corp Hgb Conc. 33.2 g/dL (33.0-37.0); Mean Corpuscular Hgb 30.4 pg (27.0-31.0); Mean Corpuscular Volume 91.6 fL (80.0-94.0); Mean Platelet Volume 12.1 fL (7.4-10.4); Platelet Count 176 10^3/uL (130-400); Red Blood Cell Count 2.96 10^6/uL (4.70-6.10); Red Cell Dist. Width 13.2 % (11.5-14.5); White Blood Cell Count 24.5 10^3/uL (4.8-10.8)
[2024-03-08 03:59] LABS: Blood Urea Nitrogen 69 mg/dl (9-20); Carbon Dioxide 21 mmol/L (22-30); Chloride 100 mmol/L (98-107); Estimated Creatinine Clearance 28 ml/min; Glucose 122 mg/dl (70-99); Magnesium 2.9 mg/dl (1.6-2.3); Potassium 4.6 mmol/L (3.5-5.1); Sodium 134 mmol/L (135-145); eGFR 22.56
[2024-03-08 05:06] LABS: Glucose - Point of Care 118 mg/dl (70-99)
[2024-03-08 05:06] LABS: Glucose - Point of Care 104 mg/dl (70-99)
[2024-03-08 05:06] LABS: Glucose - Point of Care 126 mg/dl (70-99)
[2024-03-08] MEDS: LR IV (05:09)
[2024-03-08 05:10] LABS: Glucose - Point of Care 122 mg/dl (70-99)
--- NOTE | 2024-03-08 05:55 | W.PN.CT ---
Today's Communication / Plan
-
-pod #2
-low BP overnight, asymptomatic- responded to IVF (gave 500 LR)
-Cr trended up - 2.9 today (1.4 n 03/07 and 1.2 preop)- follow
-held Mg
-CT output: L pleur 95/160 in 12/24 hrs
-current meds (ASA, Plavix, Lipitor, Lopressor, Amio, Protonix).
-encourage IS (750 so far), OOB
Assessment / Plan
-
Assessment:
-Severe multivessel CAD- s/p Cabg x4 (corbin- diag/lad, ao -svg - pda, svg-svg- om3); REVH; LAAL #45 clip on 03/06/[address] Gibbs, pod #2
-Intraop Telly with EF 30 preop, some septal improvement postop, no new wma. Fatmata free of clot, post clip, no residual pouch or flow
-Acute systolic CHF
-ICM (LVEF 35% per echo 02/27)
-Hypertension
-T2DM (hgb A1C 7.1)
-Class 2 obesity (BMI 35)
-Suspected DELMAR
-Hepatitis C s/p Harvoni
-Former IVDA (sober for decades)
-Former tobacco abuse (Quit 34 years ago)
-Hereditary Hemochromatosis
-Melanoma S/p excision
-GERD/Dodd's esophagitis
-BPH S/P TURP
-S/P bilateral TKA
-S/P cholecystectomy
-Pre-existing RBBB/LAFB
-Acute postop blood loss anemia- stable
-Acute postop atelectasis
-Acute postop hypovolemia with subsequent hypervolemia
-Acute postop brief 9 beat SVT on 03/07
-VERONICA
Discussed patient care with: Nursing and Care Team
Subjective
Procedure
- s/p Cabg x4 (corbin- diag/lad, ao -svg - pda, svg-svg- om3); REVH; LAAL #45 clip on 03/06/[address] Gibbs
-
Date of Service: March 08, 2024
Objective Data
-
PT 17.1 Sec (11.4-14.6) H 03/06/24 12:29
INR 1.41 03/06/24 12:29
APTT 30.6 Sec (23.4-35.0) 03/06/24 12:29
Vital Signs
Vital Signs
Temp Pulse Resp BP Pulse Ox
98.1 F 92 20 83/46 96
03/07/24 23:00 03/08/24 01:45 03/08/24 01:00 03/08/24 01:08 03/08/24 01:30
CT Intake/Output/Weight
03/07/24 03/07/24 03/08/24
06:59 18:59 06:59
Intake Total 650.7 / 1474.8 406.9 / 508.9 102 / 508.9
Output Total 625 / 1415 245 / 440 195 / 440
Balance 25.7 / 59.8 161.9 / 68.9 -93 / 68.9
SaO2: 96
Physical Exam
-
General: Awake and AOx3
Cardiovascular: Regular rate & rhythm, No Murmurs and Rub
Respiratory: Rales (at bases, no wheeze) and Decreased Breath Sounds
Sternum: Stable
Incision: Clean, Dry and Dressing Intact
Extremities: Other (trace edema b/l)
Abdomen: soft, nontender, nondistended, + flatus
Data Reviewed
-
Lab Results: Results Reviewed
Medications: Active Meds Reviewed
Chest X-Ray: Report Reviewed and Image Reviewed
ECG: Report Reviewed and Image Reviewed
[2024-03-08] MEDS: TYLENOL 1000 MG PO ×3 (06:07→22:20)
[2024-03-08 06:15] LABS: Glucose - Point of Care 120 mg/dl (70-99)
--- NOTE | 2024-03-08 07:00 | PTCARENOTE ---
Bedside walking rounds report received. Patient is awake alert and oriented oob in mason. NSR with PAC's and RBBB. Plan: IV hydration for rising creatinine 2.9: recheck BMP at 12noon. Maintain insulin gtt. Temp epicardial v wire insulated: [employer]
box readily accessible in room. Bladder scan per protocol. Maintan left DUSTY tube to bulb.
[2024-03-08] MEDS: NOVOLIN R INSULIN INFUSION 100 IV (07:28)
[2024-03-08] MEDS: NOVOLOG FLEXPEN 4 UNITS SC ×2 (07:55→16:48)
[2024-03-08 07:58] LABS: Glucose - Point of Care 157 mg/dl (70-99)
--- NOTE | 2024-03-08 07:58 | PN.DE.MGMTRT ---
Insulin Management
- -
03/08/2024 Diabetes Management Consult Follow up
Patient admitted 02/27 with difficulty breathing, increasing SOB, new CHF. PMH CAD, Dodd's esophagus, hepatitis, melanoma, HTN, diabetes, GERD. Prior to admission was taking metformin 1000 mg BID. A1C on admission 7.1%. S/P cardiac cath 02/28.
Patient is awake, alert and oriented out of bed in chair, able to discuss diabetes management. Friend visiting.
He did not test his glucose prior to admission.
POD 2 s/p CABG x 4, cr 2.9, eGFR 22.56. Glycemic protocol insulin infusion currently @ 5 units per hour. Has required 2.3 to 10 units overnight. 1800 calorie diet ordered.
Will continue insulin infusion glycemic protocol and follow BMP for improvement in Cr and eGFR. Will not start SGLT2 due to elevated cr today. Will discuss cost with patient today.
Patient prefers to wait until tomorrow for monitor education.
Discussed with nurse.
Diabetes History
- -
Type of Diabetes: 2
Pre-Admission Diabetes Regimen
03/08/24
03:22
Creatinine 2.9 H
Lab Results
Hemoglobin A1c 7.1 % (4.0-5.6) H 02/29/24 08:04
Insulin Pump Settings
IP Diabetes Regimen
03/07/24 03/07/24 03/07/24
08:01 09:07 10:22
Glucose
POC Glucose 135 H 143 H 127 H
03/07/24 03/07/24 03/07/24
11:09 14:19 14:59
Glucose
POC Glucose 115 H 77 82
03/07/24 03/07/24 03/07/24
15:59 16:54 17:58
Glucose
POC Glucose 117 H 120 H 149 H
03/07/24 03/07/24 03/07/24
18:56 19:59 21:11
Glucose
POC Glucose 185 H 208 H 235 H
03/07/24 03/07/24 03/08/24
22:08 23:00 00:06
Glucose
POC Glucose 181 H 157 H 93
03/08/24 03/08/24 03/08/24
01:09 01:57 03:08
Glucose
POC Glucose 76 104 H 118 H
03/08/24 03/08/24 03/08/24
03:22 04:05 05:07
Glucose 122 H
POC Glucose 126 H 122 H
03/08/24 03/08/24
06:13 07:52
Glucose
POC Glucose 120 H 157 H
Meal type: Dinner
Meal type: Lunch
Meal type: Breakfast
Amount consumed: 100%
Amount consumed: 100%
Patient Education
[2024-03-08] MEDS: LOW STRENGTH ASPIRIN 81 MG PO (08:54)
[2024-03-08] MEDS: NEURONTIN 100 MG PO ×3 (08:54→22:20)
[2024-03-08] MEDS: PACERONE 200 MG PO ×3 (08:54→22:05)
[2024-03-08] MEDS: SENOKOT-S 1 TABLET PO ×2 (08:54→20:01)
[2024-03-08] MEDS: PROTONIX 40 MG PO (08:54)
[2024-03-08] MEDS: PLAVIX 75 MG PO (08:54)
[2024-03-08] MEDS: THERAGRAN 1 TABLET PO (08:54)
[2024-03-08] MEDS: LIDOCAINE 4% PATCH TOPICAL (08:55)
[2024-03-08] MEDS: BACTROBAN 2% OINTMENT 1 APPLIC NASAL ×2 (08:55→20:01)
[2024-03-08] MEDS: LOPRESSOR 12.5 MG PO ×2 (09:00→20:01)
--- NOTE | 2024-03-08 09:19 | W.CON.NEPH ---
Consultation
-
Date/Time Consultation Requested: 03/08/2024
Date/Time Consultation Performed: 03/08/2024
Requesting Provider: Dr. Gibbs
Performing Provider: Dr. Coleman
Reason for Consultation: Acute kidney injury
Medical History
-
Chief Complaint: Acute kidney injury
History of Present Illness:
The patient is a 69-year-old male with a past medical history of hypertension maintained on amlodipine lisinopril hydrochlorothiazide. He has a history of diabetes for which she is managed on metformin therapy. He had a history of hepatitis C
status post Harvoni therapy. He had presented to the emergency room on 02/28/2024 with complaints of shortness of breath over the past several months. He was noted to be in new onset congestive heart failure. His echocardiogram reviewed and
ejection fraction of 35% with global diffuse hypokinesis. He eventually underwent coronary artery catheterization on 02/29/2024 which noted an elevated LVEDP and triple-vessel disease. He was given IV diuretics and then eventually underwent CABG X
4 on 03/06. The patient has been hypotensive postoperatively and galas and acute kidney injury with his creatinine up to 2.9 following a preoperative creatinine of 1.2 and nephrology was asked to see the patient.
Past Medical History
Hypertension
Hyperlipidemia
Obesity
Hepatitis C s/p Harvoni
Hereditary Hemochromatosis
Melanoma
GERD
BPH
Cholecystectomy
TURP
Bilateral TKA
Social History
Tobacco: Former Smoker
Alcohol: Former
Family History
no ckd
Allergies / Home Medications
Allergy/AdvReac Type Severity Reaction Status Date / Time
Penicillins Allergy Rash Verified 02/28/24 02:32
�Medication �Instructions �Recorded �Confirmed �Type
amlodipine 5 mg tablet 5 mg PO DAILY Blood pressure ##0 04/25/21 02/28/24 Rx
omeprazole 40 mg capsule,delayed 40 mg PO DAILY Gastrointestinal 04/25/21 02/28/24 Rx
release issue ##0
lisinopril 20 1 tab PO DAILY Blood Pressure 10/04/23 02/28/24 History
mg-hydrochlorothiazide 25 mg tablet
metformin 1,000 mg tablet 1,000 mg PO BID Diabetes 02/28/24 02/28/24 History
therapeutic multivitamin 1 tab PO DAILY Supplement 02/28/24 02/28/24 History
zinc sulfate 50 mg zinc (220 mg) 50 mg PO DAILY Supplement 02/28/24 02/28/24 History
tablet
Review of Systems
-
History Source: Patient
All other systems: Negative unless noted
Constitutional: Fatigue
EENT: No Symptoms
Respiratory: No Symptoms
Cardiac: Chest Pain (post operative sternal wound chest pain)
Abdomen/GI: No Symptoms
: No Symptoms
Musculoskeletal: No Symptoms
Skin: No Symptoms
Neurological: No Symptoms
Endocrine: No Symptoms
Hematologic/Lymphatic: No Symptoms
Physical Exam
Vital Signs
Vital Signs
Temp Pulse Resp BP Pulse Ox
98 F 97 20 92/48 95
03/08/24 07:53 03/08/24 09:00 03/08/24 07:53 03/08/24 08:00 03/08/24 07:53
Lab Results
03/08/24 03:22
WBC 24.5 10^3/uL (4.8-10.8) H 03/08/24 03:22
RBC 2.96 10^6/uL (4.70-6.10) L 03/08/24 03:22
Hgb 9.0 g/dL (13.0-18.0) L 03/08/24 03:22
Hct 27.1 % (39.0-52.0) L 03/08/24 03:22
Plt Count 176 10^3/uL (130-400) 03/08/24 03:22
eGFR 22.56 03/08/24 03:22
Cuk-A-Pbikwcvnmqk Pept 2630 pg/ml 02/28/24 02:54
Albumin 4.3 g/dl (3.5-5.0) 03/01/24 06:56
Physical Exam
General: AOx3, Nontoxic , NAD
HEENT: PERRL, EOMI, Anicteric, Conjunctivae Clear, Ear/Nose Intact, Hearing Normal, Oropharynx Clear/Moist, Dentition Intact, Facial Symmetry, Neck Supple, Neck: Trachea Midline, No JVD and No Thyromegaly, no Bruits
Respiratory: Clear to auscultation, with decreased breath sounds to the bases bilaterally with normal lung exersion
Cardiac: S1/S2 and Regular Rate/Rhythm
Breast: Deferred by me
Abdomen: Soft, Nontender, Nondistended, Normal Bowel Sounds and No Hepatosplenomegaly
Rectal: Deferred by Provider
Genito-urinary: No Costovertebral Tenderness
Extremities: No Clubbing, No Cyanosis and trace pitting Edema
Skin: No Rash or open lesions
Neuro: Nonfocal/Grossly Intact, CN II-XII (Intact) and Strength (Musculoskeletal exam 5 out of 5 both upper and lower extremities)
Hematologic/Lymphatic: No Cervical Lymphadenopathy, No Submandibular Lymphadenopathy and No Supraclavicular Lymphadenopathy
Psych: Mood/afflect pleasant, Insight/judgement good and Appropriate
Vascular: plus 1 pedal and radial pulses
Data Reviewed
-
Radiology: Image Personally Visualized and interpreted (Chest x-ray personally reviewed left lower lobe opacification small right pleural effusion mild interstitial changes)
Labs: Labs Reviewed by me and Other (Urinalysis 03/06/2024 bland no blood or protein)
Old Records: Reviewed (Creatinine 0.9 09/23/23)
Assessment/Plan
-
Impression:
VERONICA
Status post CABG x 4 03/06/2024
Hypertension
Diabetes
Hyperlipidemia
Plan:
VERONICA:
-Likely prerenally mediated due to hypotension postoperatively
-holding diuretics and anti-htns
-check PVR bladder scan, low threshold for flores catheter insertion
-Would attempt to keep mean arterial perfusion pressure at 65 or greater
-Concur with lactated Ringer's at 100 cc/h for blood pressure support
[2024-03-08] MEDS: LR 1000 IV ×2 (09:51→20:01)
[2024-03-08 10:08] LABS: Glucose - Point of Care 100 mg/dl (70-99)
--- NOTE | 2024-03-08 10:08 | W.PN.CD ---
Addendum entered and electronically signed by Marco Ayala MD (Ellie) 03/08/24 10:33:
Patient's creatinine is 2.9 from 1.4 yesterday and a baseline of 1.0. Nephrology saw the patient and thinks this is likely prerenal in the setting of postoperative hypotension. Agree with holding diuresis and resuming as tolerated.
Original Note:
Today's Communication / Plan
-
- diurese
- post-op care per CT surgery
Impression / Plan
-
BACKGROUND: 69M with HTN, PVCs, malignant melanoma s/p excision, hepatitis C (s/p Harvoni), hemochromatosis, RBBB (noted on EKG 09/2023), GERD/Dodd's esophagus, dyslipidemia, DM, and obesity presented with SOB. He was found to have an ischemic
cardiomyopathy and multivessel coronary artery disease now s/p CABG and SHEREEN clip.
MVCAD S/P CABG x 4 (CALDWELL�diagonal/LAD, ao�SVG�PDA, SVG�SVG�OM 3) & #[address] Gibbs 03/06/2024
-Pre-LVEF 30%, post EF unchanged with some septal improvement
-Postoperative management per CT surgery
-EKG with bifascicular block and anterior T wave inversion, unchanged
-Now off of vasopressors
-Follow telemetry
HFrEF/ICM (EF 35%), acute on chronic
-Found to have reduced LVEF of 35% and multivessel CAD on cardiac catheterization 02-28.
-GDMT as tolerated
-Beta kellee: Uptitrate metoprolol as tolerated
-SGLT2: Jardiance and Farxiga are > $450 a month
-ACEI/ARB: Resume home Lisinopril as tolerated (Entresto $325/month)
-MRA: Can consider as outpatiet
-Diuretic: Weight is up today with crackles on exam, non-pitting edema, and pulm edema on CXR. Would diurese with 40mg IV Lasix if BP tolerates.
-CHF education, limit sodium/fluid
-Trend I/O, BMP, daily weight
HTN:
-Resume Amlodipine on discharge
Bifascicular block:
-RBBB noted 09/2023
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
Type II DM, Hgba1c 7.1%
Obesity:
-Weight loss and regular exercise recommended.
-Thinks he may have sleep apnea, so should consider OP sleep study with his PCP
Subjective:
Doing well this morning. Sitting up in the chair. No SOB or chest pain. Mild pedal edema. Short run of SVT on telemetry. Hypotensive overnight which responded to IVF.
Physical Exam
Vital Signs/Labs
Vital Signs
Temp Pulse Resp BP Pulse Ox
98 F 97 20 92/48 95
03/08/24 07:53 03/08/24 09:00 03/08/24 07:53 03/08/24 08:00 03/08/24 07:53
03/07/24 03/08/24 03/09/24
06:59 06:59 06:59
Actual Weight 103.3 kg 107.5 kg
03/08/24 03:22
PT 17.1 Sec (11.4-14.6) H 03/06/24 12:29
INR 1.41 03/06/24 12:29
APTT 30.6 Sec (23.4-35.0) 03/06/24 12:29
Magnesium 2.9 mg/dl (1.6-2.3) H 03/08/24 03:22
Triglycerides 142 mg/dl (10-149) 02/29/24 08:04
LDL Cholesterol, Calc 135 mg/dl 02/29/24 08:04
VLDL Cholesterol, Calc 28 mg/dl (0-30) 02/29/24 08:04
HDL Cholesterol 40 mg/dl 02/29/24 08:04
02/28/24
02:54
Tjg-I-Aepycqpkfax Pept 2630
Physical Exam
Constitutional: No acute distress and Comfortable
Cardiovascular: Rhythm & rate is regular and Pedal edema present
Respiratory: Respiratory effort normal and Crackles Present
Data Reviewed
-
Date of Service: March 08, 2024
Medical Decision Making: Reviewed Test Results
X-Ray/CT/US/MRI/NUC/PET: Image Personally Visualized and interpreted
Labs: Labs Reviewed by me
[2024-03-08 12:04] LABS: Glucose - Point of Care 139 mg/dl (70-99)
--- NOTE | 2024-03-08 12:15 | PTCARENOTE ---
Ambulated for second time today. Room air. Ambulated 225 feet: moderately short of breath. See flowrecord for remaining assessments. Dr. Coleman in this am: agree with hydration plans
[2024-03-08 12:37] LABS: Blood Urea Nitrogen 71 mg/dl (9-20); Calcium 7.8 mg/dl (8.4-10.2); Carbon Dioxide 20 mmol/L (22-30); Chloride 99 mmol/L (98-107); Estimated Creatinine Clearance 26 ml/min; Glucose 201 mg/dl (70-99); Potassium 4.7 mmol/L (3.5-5.1); Sodium 132 mmol/L (135-145); eGFR 20.83
[2024-03-08] MEDS: NOVOLOG FLEXPEN SC (13:25)
[2024-03-08 14:18] LABS: Glucose - Point of Care 159 mg/dl (70-99)
[2024-03-08] MEDS: NSS IV (14:58)
--- NOTE | 2024-03-08 15:51 | CM ---
CM following for DC planning needs.
Pt. is POD# 2 from CABG.
DC plan is for home w/ CT Transitional Care RN.
CM will cont. to follow for DC planning needs.
--- NOTE | 2024-03-08 16:00 | PTCARENOTE ---
No acute changes. Vitals stable.
[2024-03-08 16:47] LABS: Glucose - Point of Care 169 mg/dl (70-99)
[2024-03-08] MEDS: LIPITOR 40 MG PO (17:37)
[2024-03-08 18:40] LABS: Glucose - Point of Care 152 mg/dl (70-99)
--- NOTE | 2024-03-08 19:00 | PTCARENOTE ---
report received from previous RN, walking rounds done, assumed care of pt. pt in chair, AAOx4. pt reports pain is tolerable at this time. VSS. SR on monitor, HR 90s. epicardial wires intact and insulated. POX 93% on room air. IS encouraged. CT x1
intact to bulb suction, minimal drainage noted. pt voided 200cc dark urine. Insulin gtt infusing per glycemic protocol. LR infusing @ 100cc/hr per orders. all surgical sites stable. pt walked halls without difficulty, assisted back to bed and now
resting comfortably. see worklist for full assessment, VS, and interventions.
[2024-03-08 20:23] LABS: Glucose - Point of Care 114 mg/dl (70-99)
[2024-03-08] MEDS: FLEXERIL 5 MG PO (22:20)
--- NOTE | 2024-03-08 23:00 | PTCARENOTE ---
no changes in assessment, pt VSS. NSR, HR 90s. POX 95% on room air. CT output WNL. IVFs and Insulin gtt maintained. all surgical sites stable.
[2024-03-08 23:05] LABS: Glucose - Point of Care 84 mg/dl (70-99)
[2024-03-09] VITALS (19 sets, daily range): BP systolic 108–139; BP diastolic 57–102; PULSE 93; O2SAT 93–100; BMI 36.9
[2024-03-09 01:28] LABS: Glucose - Point of Care 115 mg/dl (70-99)
[2024-03-09] MEDS: CALCIUM CHLORIDE 10% SYRINGE 60 MG IV (02:17)
[2024-03-09 03:44] LABS: Glucose - Point of Care 113 mg/dl (70-99)
[2024-03-09] MEDS: ROXICODONE 5 MG PO ×2 (03:48→21:43)
[2024-03-09 03:55] LABS: Hematocrit 25.9 % (39.0-52.0); Hemoglobin 8.9 g/dL (13.0-18.0); Mean Corp Hgb Conc. 34.4 g/dL (33.0-37.0); Mean Corpuscular Volume 90.2 fL (80.0-94.0); Mean Platelet Volume 11.8 fL (7.4-10.4); Platelet Count 194 10^3/uL (130-400); Red Blood Cell Count 2.87 10^6/uL (4.70-6.10); Red Cell Dist. Width 13.1 % (11.5-14.5); White Blood Cell Count 24.5 10^3/uL (4.8-10.8)
--- NOTE | 2024-03-09 04:00 | PTCARENOTE ---
no changes in assessment, pt VSS. SR/ST on monitor. POX 97% on room air. CT output WNL. IVFs and Insulin gtt maintained. 1g calcium given per CT PA. pt voided 300cc dark urine. weight obtained. AM labs drawn and sent. all surgical sites stable. pt
resting between care.
[2024-03-09 04:26] LABS: Blood Urea Nitrogen 80 mg/dl (9-20); Calcium 9.5 mg/dl (8.4-10.2); Carbon Dioxide 21 mmol/L (22-30); Chloride 99 mmol/L (98-107); Estimated Creatinine Clearance 30 ml/min; Glucose 106 mg/dl (70-99); Magnesium 3.1 mg/dl (1.6-2.3); Potassium 4.6 mmol/L (3.5-5.1); Sodium 132 mmol/L (135-145); eGFR 23.53
[2024-03-09] MEDS: TYLENOL 1000 MG PO ×3 (05:09→20:55)
--- NOTE | 2024-03-09 06:04 | W.PN.CT ---
Today's Communication / Plan
-
-pod #3
-no significant issues overnight
-drips: LR @ 100 per hr, Insulin
-CT output: L pleur 70/90 in 12/24 hrs
-follow Cr - 2.8 today (3.1 on 03/08, 1.4 on 03/07 and 1.2 preop). Appreciate Renal input
-follow bladder scans (UO 500/650 in 12/24 hrs)
-repleted Ca
-BB decreased to 12.5 bid to allow higher BP
-current meds (ASA, Plavix, Lipitor, Lopressor, Amio, Protonix).
-encourage IS, OOB
-appreciate everyone's input
Assessment / Plan
-
Assessment:
-Severe multivessel CAD- s/p Cabg x4 (corbin- diag/lad, ao -svg - pda, svg-svg- om3); REVH; LAAL #45 clip on 03/06/[address] Gibbs, pod #3
-Intraop Telly with EF 30 preop, some septal improvement postop, no new wma. Fatmata free of clot, post clip, no residual pouch or flow
-Acute systolic CHF
-ICM (LVEF 35% per echo 02/28/24)
-Hypertension
-T2DM (hgb A1C 7.1)
-Class 2 obesity (BMI 35)
-Suspected DELMAR
-Hepatitis C s/p Harvoni
-Former IVDA (sober for decades)
-Former tobacco abuse (Quit 34 years ago)
-Hereditary Hemochromatosis
-Melanoma S/p excision
-GERD/Dodd's esophagitis
-BPH S/P TURP
-S/P bilateral TKA
-S/P cholecystectomy
-Pre-existing RBBB/LAFB
-Acute postop blood loss anemia- stable
-Acute postop atelectasis
-Acute postop hypovolemia with subsequent hypervolemia
-Acute postop brief 9 beat SVT on 03/07
-VERONICA, suspect prerenal d/t hypotension
Discussed patient care with: Nursing and Care Team
Subjective
Procedure
- s/p Cabg x4 (corbin- diag/lad, ao -svg - pda, svg-svg- om3); REVH; LAAL #45 clip on 03/06/[address] Gibbs
-
Date of Service: March 09, 2024
Objective Data
-
PT 17.1 Sec (11.4-14.6) H 03/06/24 12:29
INR 1.41 03/06/24 12:29
APTT 30.6 Sec (23.4-35.0) 03/06/24 12:29
Vital Signs
Vital Signs
Temp Pulse Resp BP Pulse Ox
98.2 F 105 18 99/62 93
03/08/24 20:00 03/08/24 20:15 03/08/24 20:00 03/08/24 20:00 03/08/24 20:00
CT Intake/Output/Weight
03/08/24 03/08/24 03/09/24
06:59 18:59 06:59
Intake Total 679.2 / 1424.1 2343.1 / 2553.1 210 / 2553.1
Output Total 200 / 445 170 / 370 200 / 370
Balance 479.2 / 979.1 2173.1 / 2183.1 10 2182.1
SaO2: 93
Physical Exam
-
General: Awake and AOx3
Cardiovascular: Regular rate & rhythm, No Murmurs and Rub
Respiratory: Rales (at bases, no wheeze) and Decreased Breath Sounds
Sternum: Stable
Incision: Clean, Dry and Dressing Intact
Abdomen: soft, nontender, nondistended, + flatus
Extremities: Other (trace edema b/l)
Data Reviewed
-
Lab Results: Results Reviewed
Medications: Active Meds Reviewed
Chest X-Ray: Report Reviewed and Image Reviewed
ECG: Report Reviewed and Image Reviewed
[2024-03-09 06:22] LABS: Glucose - Point of Care 82 mg/dl (70-99)
--- NOTE | 2024-03-09 07:35 | PN.DE.MGMTRT ---
Insulin Management
- -
03/09/2024 Diabetes Management Consult Follow up
Patient admitted 02/27 with difficulty breathing, increasing SOB, new CHF. PMH CAD, Dodd's esophagus, hepatitis, melanoma, HTN, diabetes, GERD. Prior to admission was taking metformin 1000 mg BID. A1C on admission 7.1%. S/P cardiac cath 02/28.
Patient is awake, alert and oriented out of bed in chair, able to discuss diabetes management.
He did not test his glucose prior to admission.
POD 3 s/p CABG x 4, cr 2.8, eGFR 23.53. Glycemic protocol insulin infusion currently @ .3 units per hour. Has required 2.3 to 5 units overnight. 1800 calorie diet ordered.
Will transition insulin infusion glycemic protocol this AM with lantus 20 units (stop drip 2 hours after lantus administered)and novolog 5 units AC with moderate corrective. Will not start SGLT2 due to elevated cr today. When cr improves will start
farxiga and resume metformin.
Instructed patient on testing procedure for Contour Next meter with good return demonstration. Instructed on times to test and target ranges, highlighted in diabetes booklet. Instructed on prep and injection technique for both lantus and novolog
with good return demonstration. Nursing to reinforce and have patient self inject all injections with nursing supervision.
Discussed with nurse.
Diabetes History
- -
Type of Diabetes: 2
Pre-Admission Diabetes Regimen
03/08/24 03/09/24
12:07 03:41
Creatinine 3.1 H 2.8 H
Lab Results
Hemoglobin A1c 7.1 % (4.0-5.6) H 02/29/24 08:04
Insulin Pump Settings
IP Diabetes Regimen
03/08/24 03/08/24 03/08/24
07:52 09:55 11:53
Glucose
POC Glucose 157 H 100 H 139 H
03/08/24 03/08/24 03/08/24
12:07 14:12 16:44
Glucose 201 H
POC Glucose 159 H 169 H
03/08/24 03/08/24 03/08/24
18:37 20:22 23:04
Glucose
POC Glucose 152 H 114 H 84
03/09/24 03/09/24 03/09/24
01:27 03:41 03:43
Glucose 106 H
POC Glucose 115 H 113 H
03/09/24
06:21
Glucose
POC Glucose 82
Meal type: Dinner
Meal type: Breakfast
Amount consumed: 100%
Amount consumed: 100%
Patient Education
[2024-03-09 08:05] LABS: Glucose - Point of Care 106 mg/dl (70-99)
[2024-03-09] MEDS: NOVOLOG FLEXPEN 4 UNITS SC (08:32)
[2024-03-09] MEDS: LR IV (08:34)
--- NOTE | 2024-03-09 08:38 | W.PN.NEPH.PH ---
Today's Communication / Plan
-
lasix 20mg IV lasix
follow bmp
Assessment/Plan
-
Impression:
VERONICA
Status post CABG x 4 03/06/2024
Hypertension
Diabetes
Hyperlipidemia
Plan:
VERONICA:
-Likely prerenally mediated due to hypotension postoperatively
-holding anti-htns
-check PVR bladder scan, low threshold for flores catheter insertion
-Would attempt to keep mean arterial perfusion pressure at 65 or greater
-Now that blood pressure is normalized, creatinine continues to improve to 2.8
-Okay for 20 mg IV Lasix discussed with CT surgery
-
-
Date of Service: March 09, 2024
CC / HPI / ROS
-
Chief Complaint:
VERONICA
History of Present Illness:
creatinine down to 2.8
hemodynamically more stable
Review of Systems:
weights up
non oliguric
no fevers
Labs
-
Labs:
WBC 24.5 10^3/uL (4.8-10.8) H 03/09/24 03:41
RBC 2.87 10^6/uL (4.70-6.10) L 03/09/24 03:41
Hgb 8.9 g/dL (13.0-18.0) L 03/09/24 03:41
Hct 25.9 % (39.0-52.0) L 03/09/24 03:41
Plt Count 194 10^3/uL (130-400) 03/09/24 03:41
Sodium 132 mmol/L (135-145) L 03/09/24 03:41
Potassium 4.6 mmol/L (3.5-5.1) 03/09/24 03:41
Chloride 99 mmol/L (98-107) 03/09/24 03:41
Carbon Dioxide 21 mmol/L (22-30) L 03/09/24 03:41
BUN 80 mg/dl (9-20) H 03/09/24 03:41
Creatinine 2.8 mg/dL (0.7-1.3) H 03/09/24 03:41
eGFR 23.53 03/09/24 03:41
Glucose 106 mg/dl (70-99) H 03/09/24 03:41
Calcium 9.5 mg/dl (8.4-10.2) D 03/09/24 03:41
Lvl-B-Zhgpjxefsjw Pept 2630 pg/ml 02/28/24 02:54
Albumin 4.3 g/dl (3.5-5.0) 03/01/24 06:56
Physical Exam
-
Vital Signs:
Vital Signs
Temp Pulse Resp BP Pulse Ox
98.2 F 93 20 135/63 95
03/09/24 08:00 03/09/24 08:00 03/09/24 08:00 03/09/24 08:00 03/09/24 08:00
Respiratory:: Bilateral: Coarse
Lung Excursion:: Normal
Abdomen:: Nontender and Soft
Bowel Sounds:: Normal
Extremity Edema:: +1: Bilateral: (hands and legs)
Flores Catheter: No
[2024-03-09] MEDS: ZOFRAN 4 MG IV (08:41)
--- NOTE | 2024-03-09 08:57 | W.PN.CD ---
Today's Communication / Plan
-
Consider stopping IV fluids and start IV diuresis in next day or two
OOB and ambulate as able
ISO
Impression / Plan
-
BACKGROUND: 69M with HTN, PVCs, malignant melanoma s/p excision, hepatitis C (s/p Harvoni), hemochromatosis, RBBB (noted on EKG 09/2023), GERD/Dodd's esophagus, dyslipidemia, DM, and obesity presented with SOB. He was found to have an ischemic
cardiomyopathy and multivessel coronary artery disease now s/p CABG and SHEREEN clip.
MVCAD S/P CABG x 4 (CALDWELL�diagonal/LAD, ao�SVG�PDA, SVG�SVG�OM 3) & #[address] Gibbs 03/06/2024
-Pre-LVEF 30%, post EF unchanged with some septal improvement
-Postoperative management per CT surgery
-EKG with bifascicular block and anterior T wave inversion, unchanged
-Now off of vasopressors
-Follow telemetry
HFrEF/ICM (EF 35%), acute on chronic
-Found to have reduced LVEF of 35% and multivessel CAD on cardiac catheterization 02-28.
-GDMT as tolerated
-Beta kellee: Uptitrate metoprolol as tolerated
-SGLT2: Jardiance and Farxiga are > $450 a month
-ACEI/ARB: Resume home Lisinopril as tolerated (Entresto $325/month)
-MRA: Can consider as outpatient
-Diuretic: as below
-CHF education, limit sodium/fluid
-Trend I/O, BMP, daily weight
VERONICA
- 2.8 today from 3.1 peak, weight is now 242 from 236
- consider stopping IV fluids and possible IV diuresis in next day or two
HTN:
-Resume Amlodipine on discharge
Bifascicular block:
-RBBB noted 09/2023
-Continue desk monitor
Type II DM, Hgba1c 7.1%
Obesity:
-Weight loss and regular exercise recommended.
-Thinks he may have sleep apnea, so should consider OP sleep study with his PCP
Subjective:
NAD this morning feeling tired and worn out
Physical Exam
Vital Signs/Labs
Vital Signs
Temp Pulse Resp BP Pulse Ox
98.2 F 93 20 135/63 95
03/09/24 08:00 03/09/24 08:00 03/09/24 08:00 03/09/24 08:00 03/09/24 08:00
03/08/24 03/09/24 03/10/24
06:59 06:59 06:59
Actual Weight 236 lb 15.951 oz 242 lb 15.19 oz
03/09/24 03:41
03/09/24 03:41
PT 17.1 Sec (11.4-14.6) H 03/06/24 12:29
INR 1.41 03/06/24 12:29
APTT 30.6 Sec (23.4-35.0) 03/06/24 12:29
Magnesium 3.1 mg/dl (1.6-2.3) H 03/09/24 03:41
Triglycerides 142 mg/dl (10-149) 02/29/24 08:04
LDL Cholesterol, Calc 135 mg/dl 02/29/24 08:04
VLDL Cholesterol, Calc 28 mg/dl (0-30) 02/29/24 08:04
HDL Cholesterol 40 mg/dl 02/29/24 08:04
02/28/24
02:54
Iif-U-Skhduqyzksb Pept 2630
Physical Exam
Constitutional: Comfortable
EENT: Anicteric
Cardiovascular: Rhythm & rate is regular and Pedal edema present
Respiratory: Respiratory effort normal and Crackles Present
GI: Soft
Neuro/Psych: AO x 3
Data Reviewed
-
Date of Service: March 09, 2024
EKG: Tracing Personally Visualized and interpreted (sr)
Echo: Report Reviewed by me
Labs: Labs Reviewed by me
[2024-03-09] MEDS: SENOKOT-S 1 TABLET PO ×2 (09:27→20:55)
[2024-03-09] MEDS: LOPRESSOR 12.5 MG PO (09:27)
[2024-03-09] MEDS: LIDOCAINE 4% PATCH 1 PATCH TOPICAL (09:28)
[2024-03-09] MEDS: THERAGRAN 1 TABLET PO (09:28)
[2024-03-09] MEDS: BACTROBAN 2% OINTMENT 1 APPLIC NASAL ×2 (09:28→20:55)
[2024-03-09] MEDS: PLAVIX 75 MG PO (09:28)
[2024-03-09] MEDS: NEURONTIN 100 MG PO ×3 (09:28→20:55)
[2024-03-09] MEDS: PROTONIX 40 MG PO (09:28)
[2024-03-09] MEDS: PACERONE 200 MG PO ×3 (09:28→20:55)
[2024-03-09] MEDS: LOW STRENGTH ASPIRIN 81 MG PO (09:28)
[2024-03-09] MEDS: LASIX 20 MG IV (09:28)
--- NOTE | 2024-03-09 09:56 | PTCARENOTE ---
assumed care of pt from previous shift RN, sinus rhythm on tele w BBB, VSS, Lungs clear fine crackles noted to left base, pox 94% on RA. +bs, nauseous this am but resolved w zofran, voids spontaneously, surgical sites stable, cordis and PIV flush
easily, LR discontinued as ordered, pt to be transitioned off of insulin infusion. plan of care reviewed w the pt and questions encouraged.
[2024-03-09] MEDS: LANTUS 0.2 UNITS SC (10:33)
[2024-03-09 12:25] LABS: Glucose - Point of Care 172 mg/dl (70-99)
--- NOTE | 2024-03-09 12:29 | PTCARENOTE ---
glycemic completed as ordered, VSS, LP CT removed as ordered.
[2024-03-09] MEDS: NOVOLOG FLEXPEN SC (12:35)
[2024-03-09] MEDS: TOPROL XL 12.5 MG PO (13:47)
[2024-03-09] MEDS: NSS 500 IV (13:49)
[2024-03-09] MEDS: NOVOLOG FLEXPEN 5 UNITS SC ×2 (14:29→18:16)
[2024-03-09] MEDS: NOVOLOG FLEXPEN-MODERATE RESISTANCE 1 UNITS SC (14:29)
[2024-03-09 14:32] LABS: Glucose - Point of Care 153 mg/dl (70-99)
--- NOTE | 2024-03-09 15:28 | PTCARENOTE ---
pt walking in halls, VSS, pain well controlled.
[2024-03-09 18:05] LABS: Glucose - Point of Care 225 mg/dl (70-99)
[2024-03-09] MEDS: LIPITOR 40 MG PO (18:15)
[2024-03-09] MEDS: NOVOLOG FLEXPEN-MODERATE RESISTANCE 3 UNITS SC (18:16)
--- NOTE | 2024-03-09 20:00 | PTCARENOTE ---
Pt aaox4 w/ complaints of pain. NS VSS, RA w/ crackles at the bases of lungs, GI and benign, all surgical wounds CDI. See worklist for detailed assessment
[2024-03-09] MEDS: TOPROL XL 25 MG PO (22:34)
[2024-03-10] VITALS (11 sets, daily range): BP systolic 93–134; BP diastolic 56–69; PULSE 92; O2SAT 93–99; BMI 36.8
--- NOTE | 2024-03-10 | PTCARENOTE ---
no change from previous assessment
[2024-03-10 06:05] LABS: Hematocrit 22.2 % (39.0-52.0); Hemoglobin 7.6 g/dL (13.0-18.0); Mean Corp Hgb Conc. 34.2 g/dL (33.0-37.0); Mean Corpuscular Hgb 29.6 pg (27.0-31.0); Mean Corpuscular Volume 86.4 fL (80.0-94.0); Platelet Count 225 10^3/uL (130-400); Red Blood Cell Count 2.57 10^6/uL (4.70-6.10); Red Cell Dist. Width 13.3 % (11.5-14.5); White Blood Cell Count 16.8 10^3/uL (4.8-10.8)
--- NOTE | 2024-03-10 06:17 | W.PN.CT ---
Today's Communication / Plan
-
-pod #4
-no issues overnight
-diuresed with 20 iv Lasix on 03/09 (UO 800)
-BP improved with ivf
-labs pending
-follow Cr
-current meds (ASA, Plavix, Lipitor, Toprol XL 25 bid, Amio, Protonix).
-encourage IS, OOB
-appreciate everyone's input
Assessment / Plan
-
Assessment:
-Severe multivessel CAD- s/p Cabg x4 (corbin- diag/lad, ao -svg - pda, svg-svg- om3); REVH; LAAL #45 clip on 03/06/[address] Gibbs, pod #4
-Intraop Telly with EF 30 preop, some septal improvement postop, no new wma. Fatmata free of clot, post clip, no residual pouch or flow
-Acute systolic CHF
-ICM (LVEF 35% per echo 02/28/24)
-Hypertension
-T2DM (hgb A1C 7.1)
-Class 2 obesity (BMI 35)
-Suspected DELMAR
-Hepatitis C s/p Harvoni
-Former IVDA (sober for decades)
-Former tobacco abuse (Quit 34 years ago)
-Hereditary Hemochromatosis
-Melanoma S/p excision
-GERD/Dodd's esophagitis
-BPH S/P TURP
-S/P bilateral TKA
-S/P cholecystectomy
-Pre-existing RBBB/LAFB
-Acute postop blood loss anemia- stable
-Acute postop atelectasis
-Acute postop hypovolemia with subsequent hypervolemia
-Acute postop brief 9 beat SVT on 03/07
-VERONICA, suspect prerenal d/t hypotension-improving
Discussed patient care with: Nursing and Care Team
Subjective
Procedure
- s/p Cabg x4 (corbin- diag/lad, ao -svg - pda, svg-svg- om3); REVH; LAAL #45 clip on 03/06/[address] Gibbs
-
Date of Service: March 10, 2024
Objective Data
-
PT 17.1 Sec (11.4-14.6) H 03/06/24 12:29
INR 1.41 03/06/24 12:29
APTT 30.6 Sec (23.4-35.0) 03/06/24 12:29
Vital Signs
Vital Signs
Temp Pulse Resp BP Pulse Ox
98.5 F 95 18 125/58 94
03/09/24 20:00 03/09/24 23:00 03/09/24 20:00 03/09/24 20:49 03/09/24 23:00
CT Intake/Output/Weight
03/09/24 03/09/24 03/10/24
06:59 18:59 06:59
Intake Total 1210 / 3553.1 130.4 / 130.4
Output Total 870 / 1040 800 / 1100 300 / 1100
Balance 340 / 2513.1 -669.6 / -969.6 -300 / -969.6
SaO2: 94
Physical Exam
-
General: Awake and AOx3
Cardiovascular: Regular rate & rhythm, No Murmurs and No Rub
Respiratory: Rales (at bases, no wheeze) and Decreased Breath Sounds
Sternum: Stable
Incision: Clean, Dry and Intact
Extremities: Edema +1 (R>L (R EVH))
Data Reviewed
-
Lab Results: Results Reviewed
Medications: Active Meds Reviewed
Chest X-Ray: Report Reviewed and Image Reviewed
ECG: Report Reviewed and Image Reviewed
[2024-03-10 06:30] LABS: Blood Urea Nitrogen 79 mg/dl (9-20); Calcium 8.1 mg/dl (8.4-10.2); Carbon Dioxide 24 mmol/L (22-30); Chloride 98 mmol/L (98-107); Estimated Creatinine Clearance 33 ml/min; Glucose 170 mg/dl (70-99); Magnesium 3.1 mg/dl (1.6-2.3); Potassium 4.8 mmol/L (3.5-5.1); Sodium 132 mmol/L (135-145); eGFR 26.96
[2024-03-10] MEDS: TYLENOL PO ×2 (06:47→13:59)
[2024-03-10 07:27] LABS: Glucose - Point of Care 223 mg/dl (70-99)
--- NOTE | 2024-03-10 07:37 | PN.DE.MGMTRT ---
Insulin Management
- -
03/10/2024 Diabetes Management F/U:
Patient admitted 02/27 with difficulty breathing, increasing SOB, new CHF S/P cardiac cath 02/28.
PMH: CAD, Dodd's esophagus, hepatitis, melanoma, HTN, diabetes, GERD, T2DM. Prior to admission was taking metformin 1000 mg BID. A1C on admission 7.1%. States he was not test his glucose prior to admission.
Patient is awake, alert and oriented out of bed in chair, able to discuss diabetes management.
POD #4 s/p CABG x 4, cr 2.5, eGFR 26.96 today. Transitioned off Glycemic protocol 03/09 to SQ insulin due to VERONICA.
Current Diabetes regimen includes Lantus 20 units in AM, NovoLog 5 units AC with moderate corrective.
Glucose trended up to 225 pre dinner, requiring 3 units additional corrective insulin. Fasting 170 (V), 223 POC this AM.
Will increase NovoLog to 8 units AC, cont moderate corrective and Lantus 20 units in AM.
Will not start SGLT2 due to VERONICA. Will start Farxiga and resume Metformin when Cr improves
Instructed patient on testing procedure for Contour Next meter with good return demonstration. Instructed on times to test and target ranges, highlighted in diabetes booklet. Instructed on prep and injection technique for both Lantus and NovoLog
with good return demonstration. Nursing to reinforce and have patient self inject all injections with nursing supervision.
Discussed with nurse.
Diabetes History
- -
Type of Diabetes: 2 requiring insulin
Pre-Admission Diabetes Regimen
03/10/24
05:58
Creatinine 2.5 H
Lab Results
Hemoglobin A1c 7.1 % (4.0-5.6) H 02/29/24 08:04
Insulin Pump Settings
IP Diabetes Regimen
03/09/24 03/09/24 03/09/24
08: 12:24 14:25
Glucose
POC Glucose 106 H 172 H 153 H
03/09/24 03/10/2403/10/24
18:04 05:58 07:25
Glucose 170 H
POC Glucose 225 H 223 H
Meal type: Dinner
Meal type: Breakfast
Amount consumed: 100%
Patient Education
[2024-03-10] MEDS: PROTONIX 40 MG PO (07:38)
[2024-03-10] MEDS: ZOFRAN 4 MG IV (07:39)
[2024-03-10] MEDS: LASIX 40 MG IV (07:39)
[2024-03-10] MEDS: NOVOLOG FLEXPEN 5 UNITS SC (08:16)
[2024-03-10] MEDS: NOVOLOG FLEXPEN-MODERATE RESISTANCE 3 UNITS SC (08:16)
--- NOTE | 2024-03-10 08:24 | PTCARENOTE ---
received pt from manager shift nurse. pt AAOx3, pt NSR w/ BBB per monitor and storage bin tender, palpable pulses, A/V wires insulated, B/L LE trace edema, pox 92-94% on RA, lower left lung sounds diminished with crackles, +bs, pt complaining of nausea relieved with
Zofran, voids, all surgical sites intact, CT dressing c/d/i, RIJ Cordis intact, piv intact, plan of care discussed and questions encouraged
[2024-03-10] MEDS: THERAGRAN 1 TABLET PO (09:08)
[2024-03-10] MEDS: PLAVIX 75 MG PO (09:08)
[2024-03-10] MEDS: LOW STRENGTH ASPIRIN 81 MG PO (09:09)
[2024-03-10] MEDS: PACERONE 200 MG PO ×3 (09:09→22:32)
[2024-03-10] MEDS: TOPROL XL 25 MG PO ×2 (09:09→19:44)
[2024-03-10] MEDS: NEURONTIN 100 MG PO ×3 (09:09→22:33)
[2024-03-10] MEDS: SENOKOT-S 1 TABLET PO ×2 (09:10→19:43)
[2024-03-10] MEDS: LIDOCAINE 4% PATCH 1 PATCH TOPICAL (09:11)
[2024-03-10] MEDS: BACTROBAN 2% OINTMENT 1 APPLIC NASAL (09:12)
--- NOTE | 2024-03-10 09:38 | W.PN.CD ---
Today's Communication / Plan
-
-Remains clinically stable; continue routine postoperative management as per CT Surgery.
-Diuretic: Agree with IV Lasix.
Impression / Plan
-
BACKGROUND: 69M with HTN, PVCs, malignant melanoma s/p excision, hepatitis C (s/p Harvoni), hemochromatosis, RBBB (noted on EKG 09/2023), GERD/Dodd's esophagus, dyslipidemia, DM, and obesity presented with SOB. He was found to have an ischemic
cardiomyopathy and multivessel coronary artery disease now s/p CABG and SHEREEN clip.
MVCAD S/P CABG x 4 (CALDWELL�diagonal/LAD, ao�SVG�PDA, SVG�SVG�OM 3) & #[address] Gibbs 03/06/2024
-Pre-LVEF 30%, post EF unchanged with some septal improvement
-Remains clinically stable; continue routine postoperative management as per CT Surgery.
-EKG with bifascicular block and anterior T wave inversion, unchanged
-Off of vasopressors
-Follow telemetry
HFrEF/ICM (EF 30-35%), acute on chronic
-GDMT as tolerated
-Beta kellee: Uptitrate metoprolol to succinate as tolerated
-SGLT2: Jardiance and Farxiga are > $450 a month
-ACEI/ARB: Resume home Lisinopril as blood pressure allows (Entresto $325/month)
-MRA: Can consider as outpatient
-Diuretic: Agree with IV Lasix.
-CHF education, limit sodium/fluid
-Trend I/O, BMP, daily weight
VERONICA
-Creatinine improving.
HTN:
-Will not resume outpatient amlodipine on discharge (no benefit in CHF).
-GDMT optimization for CHF as above.
Bifascicular block:
-RBBB noted 09/2023
-Continue [employer] consultant
Type II DM, Hgba1c 7.1%
Obesity:
-Weight loss and regular exercise recommended.
-Thinks he may have sleep apnea, so should consider OP sleep study with his PCP
Subjective:
No major events overnight. No cardiac complaints this a.m.
Physical Exam
Vital Signs/Labs
Vital Signs
Temp Pulse Resp BP Pulse Ox
98.5 F 91 16 131/63 94
03/10/24 08:00 03/10/24 09:09 03/10/24 08:00 03/10/24 09:09 03/10/24 08:37
03/09/24 03/10/24 03/11/24
06:59 06:59 06:59
Actual Weight 110.2 kg 109.8 kg
03/10/24 05:58
03/10/24 05:58
PT 17.1 Sec (11.4-14.6) H 03/06/24 12:29
INR 1.41 03/06/24 12:29
APTT 30.6 Sec (23.4-35.0) 03/06/24 12:29
Magnesium 3.1 mg/dl (1.6-2.3) H 03/10/24 05:58
Triglycerides 142 mg/dl (10-149) 02/29/24 08:04
LDL Cholesterol, Calc 135 mg/dl 02/29/24 08:04
VLDL Cholesterol, Calc 28 mg/dl (0-30) 02/29/24 08:04
HDL Cholesterol 40 mg/dl 02/29/24 08:04
02/28/24
02:54
Mez-I-Tmheayauovo Pept 2630
Physical Exam
Constitutional: No acute distress and Comfortable
EENT: Anicteric
Cardiovascular: Rhythm & rate is regular, Systolic murmur absent, Pedal edema present (1-2+) and S1S2 is normal
Respiratory: Respiratory effort normal and Rhonchi Present (mild bibasilar)
GI: Soft
Neuro/Psych: AO x 3
Other: Skin (Warm, dry, intact)
Data Reviewed
-
Date of Service: March 10, 2024
EKG: Tracing Personally Visualized and interpreted (Telemetry: Sinus rhythm)
Labs: Labs Reviewed by me
Critical Care Time (in minutes): 34
[2024-03-10] MEDS: LANTUS 0.2 UNITS SC (11:12)
--- NOTE | 2024-03-10 11:17 | PTCARENOTE ---
Assumed care of patient from prior shift. AAO x 3 , denies complaint. SR on monitor. Epicardial wire insulated. Room air 93%. Occasional non productive cough. Abdomen obese, soft, positive bowel sounds t/o. No continued nausea. Surgical
sites well approximated with glue. General anasarca present. Pulses palpable. Plan for day discussed.
[2024-03-10] MEDS: NSS IV (11:37)
--- NOTE | 2024-03-10 11:53 | CM ---
CM following for DC planning needs.
Met w/ patient at bedside. Patient is POD#4 from [facility]. Pt. reports that he is feeling well but tired.
Reviewed estimated cost of medications; can provide coupons for any medications that he is prescribed. This will allow for a free 30 d supply.
Reviewed post op MD appointments + visit from [facility] RN.
CM to cont. to follow.
[2024-03-10 12:41] LABS: Glucose - Point of Care 199 mg/dl (70-99)
[2024-03-10] MEDS: NOVOLOG FLEXPEN SC (13:10)
--- NOTE | 2024-03-10 13:32 | PTCARENOTE ---
Lunch time insulin held as pt does not wish to eat lunch at this time.
--- NOTE | 2024-03-10 14:45 | PTCARENOTE ---
sanjay hose applied to bilateral lower extremities. Pt resting in bed
[2024-03-10] MEDS: NOVOLOG FLEXPEN-MODERATE RESISTANCE SC (14:50)
[2024-03-10] MEDS: MILK OF MAGNESIA 30 ML PO (15:56)
--- NOTE | 2024-03-10 16:59 | W.PN.NEPH.PH ---
Today's Communication / Plan
-
prn lasix
follow labs
Assessment/Plan
-
Impression:
VERONICA
Status post CABG x 4 03/06/2024
Hypertension
Diabetes
Hyperlipidemia
Plan:
VERONICA:
-Likely prerenally mediated due to hypotension postoperatively
bp stable , holding anti-htns
PVR Only 150cc
cr improving slowly
ok to cont lasix as needed
follow labs
d/w pt
-
-
Date of Service: March 10, 2024
CC / HPI / ROS
-
Chief Complaint:
VERONICA
History of Present Illness:
creatinine down to 2.5
hemodynamically more stable
wt decreasing
Review of Systems:
c/o nausea, worked with PT today
non oliguric
no fevers
no cp or sob
Labs
-
Labs:
WBC 16.8 10^3/uL (4.8-10.8) H 03/10/24 05:58
RBC 2.57 10^6/uL (4.70-6.10) L 03/10/24 05:58
Hgb 7.6 g/dL (13.0-18.0) L 03/10/24 05:58
Hct 22.2 % (39.0-52.0) L 03/10/24 05:58
Plt Count 225 10^3/uL (130-400) 03/10/24 05:58
Sodium 132 mmol/L (135-145) L 03/10/24 05:58
Potassium 4.8 mmol/L (3.5-5.1) 03/10/24 05:58
Chloride 98 mmol/L (98-107) 03/10/24 05:58
Carbon Dioxide 24 mmol/L (22-30) 03/10/24 05:58
BUN 79 mg/dl (9-20) H 03/10/24 05:58
Creatinine 2.5 mg/dL (0.7-1.3) H 03/10/24 05:58
eGFR 26.96 03/10/24 05:58
Glucose 170 mg/dl (70-99) H 03/10/24 05:58
Calcium 8.1 mg/dl (8.4-10.2) L 03/10/24 05:58
Izg-Y-Kjpimhxagde Pept 2630 pg/ml 02/28/24 02:54
Albumin 4.3 g/dl (3.5-5.0) 03/01/24 06:56
Physical Exam
-
Vital Signs:
Vital Signs
Temp Pulse Resp BP Pulse Ox
98.5 F 92 20 119/66 95
03/10/24 16:00 03/10/24 16:00 03/10/24 16:00 03/10/24 15:56 03/10/24 16:00
Cardiovascular:: Regular rate and rhythm
Respiratory:: Bilateral: CTA (decreased)
Lung Excursion:: Normal
Abdomen:: Nontender and Soft
Extremity Edema:: +1: Bilateral:
Huang Catheter: No
[2024-03-10 17:28] LABS: Glucose - Point of Care 191 mg/dl (70-99)
[2024-03-10] MEDS: LIPITOR 40 MG PO (17:35)
[2024-03-10] MEDS: NOVOLOG FLEXPEN-MODERATE RESISTANCE 1 UNITS SC (17:35)
[2024-03-10] MEDS: NOVOLOG FLEXPEN 8 UNITS SC (17:35)
--- NOTE | 2024-03-10 20:00 | PTCARENOTE ---
Assumed care of patient at 1900. Patient found OOB in chair at time of assessment. Patient is Aox4, follow commands appropriately, moves all extremities. Lung sounds are diminished in the bases saO2 is 97% on RA. Patient has audible but distant
heart tones, patient is SR/ST on the monitor with BBB, radial pulses are palpable and dorsalis pedis pulses are weak but palpable. Patient has +2 BLE edema and +1 generalized anasarca. Patient has active BS in all four quadrants, patient reports
constipation given MOM during day as well as scheduled sennakot. Patient is voiding clear yellow in the bathroom. 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
RLE incision approx with surg adhesive AVI. Patient has R FA PIV available for intermittent infusion. VSS. Patient has no complaints at this time.
[2024-03-10] MEDS: TYLENOL 1000 MG PO (22:32)
[2024-03-11] VITALS (15 sets, daily range): BP systolic 121–142; BP diastolic 62–72; PULSE 88; O2SAT 95; BMI 36.6
--- NOTE | 2024-03-11 | PTCARENOTE ---
Patient reassessed. SR with BBB on the monitor. VSS. No BM reported. Patient is asleep at this time.
[2024-03-11] MEDS: DULCOLAX 10 MG RECTAL (03:27)
[2024-03-11 03:53] LABS: Hematocrit 23.2 % (39.0-52.0); Hemoglobin 7.9 g/dL (13.0-18.0); Mean Corp Hgb Conc. 34.1 g/dL (33.0-37.0); Mean Corpuscular Hgb 29.8 pg (27.0-31.0); Mean Corpuscular Volume 87.5 fL (80.0-94.0); Mean Platelet Volume 10.6 fL (7.4-10.4); Platelet Count 296 10^3/uL (130-400); Red Blood Cell Count 2.65 10^6/uL (4.70-6.10); Red Cell Dist. Width 13.5 % (11.5-14.5); White Blood Cell Count 15.4 10^3/uL (4.8-10.8)
[2024-03-11 03:56] LABS: Blood Urea Nitrogen 81 mg/dl (9-20); Calcium 8.4 mg/dl (8.4-10.2); Carbon Dioxide 24 mmol/L (22-30); Chloride 100 mmol/L (98-107); Estimated Creatinine Clearance 36 ml/min; Glucose 149 mg/dl (70-99); Magnesium 3.3 mg/dl (1.6-2.3); Potassium 4.7 mmol/L (3.5-5.1); Sodium 135 mmol/L (135-145)
--- NOTE | 2024-03-11 05:02 | PTCARENOTE ---
Patient reassessed. VSS. Patient continues to c/o constipation given suppository will continue to monitor. Remains SR with BBB on the monitor.
--- NOTE | 2024-03-11 06:24 | W.PN.CT ---
Today's Communication / Plan
-
-pod #5
-no issues overnight
-c/o nausea yesterday am, resolved. Got MOM and Dulcolax sup for constipation. Started Reglan +BM
-c/o feeling sleepy - pain is controlled with Gabapentin and Tylenol (doesn't get much narcs)
-c/o feeling swelling in hands and legs. wt is up 15 lbs from preop (from 227 to 242)
-diuresed with 40 iv Lasix on 03/10 (UO 800)
-BP improved with ivf and Ca
-labs pending
-follow Cr- trending down - 2.3 today
-current meds (ASA, Plavix, Lipitor, Toprol XL 25 bid, Amio, Protonix).
-encourage IS, OOB
-appreciate everyone's input
Assessment / Plan
-
Assessment:
-Severe multivessel CAD- s/p Cabg x4 (corbin- diag/lad, ao -svg - pda, svg-svg- om3); REVH; LAAL #45 clip on 03/06/[address] Gibbs, pod #5
-Intraop Telly with EF 30 preop, some septal improvement postop, no new wma. Fatmata free of clot, post clip, no residual pouch or flow
-Acute systolic CHF
-ICM (LVEF 35% per echo 02/28/24)
-Hypertension
-T2DM (hgb A1C 7.1)
-Class 2 obesity (BMI 35)
-Suspected DELMAR
-Hepatitis C s/p Harvoni
-Former IVDA (sober for decades)
-Former tobacco abuse (Quit 34 years ago)
-Hereditary Hemochromatosis
-Melanoma S/p excision
-GERD/Dodd's esophagitis
-BPH S/P TURP
-S/P bilateral TKA
-S/P cholecystectomy
-Pre-existing RBBB/LAFB
-Acute postop blood loss anemia- stable
-Acute postop atelectasis
-Acute postop hypovolemia with subsequent hypervolemia
-Acute postop brief 9 beat SVT on 03/07
-VERONICA, suspect prerenal d/t hypotension-improving
Discussed patient care with: Nursing and Care Team
Subjective
Procedure
- s/p Cabg x4 (corbin- diag/lad, ao -svg - pda, svg-svg- om3); REVH; LAAL #45 clip on 03/06/[address] Gibbs
-
Date of Service: March 11, 2024
Objective Data
-
PT 17.1 Sec (11.4-14.6) H 03/06/24 12:29
INR 1.41 03/06/24 12:29
APTT 30.6 Sec (23.4-35.0) 03/06/24 12:29
Vital Signs
Vital Signs
Temp Pulse Resp BP Pulse Ox
97.9 F 87 20 132/65 95
03/10/24 23:00 03/10/24 23:00 03/10/24 20:00 03/10/24 22:35 03/10/24 23:00
CT Intake/Output/Weight
03/10/24 03/10/24 03/11/24
06:59 18:59 06:59
Intake Total 100 / 100
Output Total 600 / 1400 800 / 800
Balance -600 / -1269.6 -700 / -700
SaO2: 95
Physical Exam
-
General: Awake and AOx3
Cardiovascular: Regular rate & rhythm, No Murmurs and No Rub
Respiratory: Rales (at bases, no wheeze) and Decreased Breath Sounds
Sternum: Stable
Incision: Clean, Dry and Intact
Abdomen: soft, mod distended, nontender, + bowel sounds, + flatus
Extremities: Edema +1 (R>L (R EVH))
Data Reviewed
-
Lab Results: Results Reviewed
Medications: Active Meds Reviewed
Chest X-Ray: Report Reviewed and Image Reviewed
ECG: Report Reviewed and Image Reviewed
[2024-03-11] MEDS: TYLENOL 1000 MG PO ×2 (06:39→21:50)
--- NOTE | 2024-03-11 07:00 | PTCARENOTE ---
Bedside walking rounds report received. Patient seen on rounds resting in bed. Awake alert and oriented x 3. Denies pain. Room air. NSR with RBBB. Plan: obtain Type and screen and transfuse one unit PRBC when ready/give 40mg IV lasix Assisted oob to
chair. Minimal assist of 1. See
[2024-03-11 08:05] LABS: Glucose - Point of Care 173 mg/dl (70-99)
[2024-03-11] MEDS: LASIX 40 MG IV ×2 (08:05→17:35)
[2024-03-11] MEDS: THERAGRAN 1 TABLET PO (08:05)
[2024-03-11] MEDS: REGLAN 5 MG PO ×4 (08:06→21:50)
[2024-03-11] MEDS: PROTONIX 40 MG PO (08:06)
[2024-03-11] MEDS: LANTUS 0.2 UNITS SC (08:06)
[2024-03-11] MEDS: TOPROL XL 25 MG PO (08:06)
[2024-03-11] MEDS: SENOKOT-S 1 TABLET PO ×2 (08:06→21:49)
[2024-03-11] MEDS: LIDOCAINE 4% PATCH TOPICAL (08:07)
[2024-03-11] MEDS: NOVOLOG FLEXPEN 8 UNITS SC ×3 (08:07→18:01)
[2024-03-11] MEDS: PLAVIX 75 MG PO (08:07)
[2024-03-11] MEDS: PACERONE 200 MG PO ×3 (08:07→21:49)
[2024-03-11] MEDS: LOW STRENGTH ASPIRIN 81 MG PO (08:07)
[2024-03-11] MEDS: NOVOLOG FLEXPEN-MODERATE RESISTANCE 1 UNITS SC ×2 (08:08→18:01)
--- NOTE | 2024-03-11 09:48 | W.PN.CD ---
Today's Communication / Plan
-
pRBC and IV lasix
Impression / Plan
-
BACKGROUND: 69M with HTN, PVCs, malignant melanoma s/p excision, hepatitis C (s/p Harvoni), hemochromatosis, RBBB (noted on EKG 09/2023), GERD/Dodd's esophagus, dyslipidemia, DM, and obesity presented with SOB. He was found to have an ischemic
cardiomyopathy and multivessel coronary artery disease now s/p CABG and SHEREEN clip.
MVCAD S/P CABG x 4 (CALDWELL�diagonal/LAD, ao�SVG�PDA, SVG�SVG�OM 3) & #[address] Gibbs 03/06/2024
-Pre-LVEF 30%, post EF unchanged with some septal improvement
-Remains clinically stable; continue routine postoperative management as per CT Surgery.
-EKG with bifascicular block and anterior T wave inversion, unchanged
-Follow telemetry
-ASA, plavix, metoprolol
Post op anemia
-agree with pRBC today
HFrEF/ICM (EF 30-35%), acute on chronic
-GDMT as tolerated
-Beta kellee: Toprol XL 25mg bid
-SGLT2: Jardiance and Farxiga are > $450 a month
-ACEI/ARB: ACEi on hold for VERONICA (Entresto $325/month)
-MRA: not started due to VERONICA
-Diuretic: Agree with IV Lasix.
-CHF education, limit sodium/fluid
-Trend I/O, BMP, daily weight
VERONICA
-Creatinine improving with diuresis
HTN:
-Will not resume outpatient amlodipine on discharge (no benefit in CHF).
-GDMT optimization for CHF as above.
Bifascicular block:
-RBBB noted 09/2023
-Continue pvc monitor
Type II DM, Hgba1c 7.1%
Obesity:
-Weight loss and regular exercise recommended.
-Thinks he may have sleep apnea, so should consider OP sleep study with his PCP
Subjective:
No CP or SOB. +fatigue.
Physical Exam
Vital Signs/Labs
Vital Signs
Temp Pulse Resp BP Pulse Ox
98 F 88 18 121/63 93
03/11/24 07:54 03/11/24 07:54 03/11/24 07:54 03/11/24 07:54 03/11/24 07:54
03/10/24 03/11/24 03/12/24
06:59 06:59 06:59
Actual Weight 109.8 kg 109.1 kg
03/11/24 03:20
03/11/24 03:20
PT 17.1 Sec (11.4-14.6) H 03/06/24 12:29
INR 1.41 03/06/24 12:29
APTT 30.6 Sec (23.4-35.0) 03/06/24 12:29
Magnesium 3.3 mg/dl (1.6-2.3) H 03/11/24 03:20
Triglycerides 142 mg/dl (10-149) 02/29/24 08:04
LDL Cholesterol, Calc 135 mg/dl 02/29/24 08:04
VLDL Cholesterol, Calc 28 mg/dl (0-30) 02/29/24 08:04
HDL Cholesterol 40 mg/dl 02/29/24 08:04
02/28/24
02:54
Qiq-M-Erfvoakezjb Pept 2630
Physical Exam
Constitutional: No acute distress
EENT: Moist mucous membranes
Cardiovascular: Rhythm & rate is regular, Systolic murmur absent, Pedal edema present and JVD present
Respiratory: Respiratory effort normal and Lungs clear to auscul.
Neuro/Psych: AO x 3
Data Reviewed
-
Date of Service: March 11, 2024
EKG: Other (Tele: SR 80s-90s)
Labs: Labs Reviewed by me
--- NOTE | 2024-03-11 11:44 | PTCARENOTE ---
No acute changes. Vitals stable. 1 unit prbc's transfusing without reaction.
[2024-03-11] MEDS: NOVOLOG FLEXPEN-MODERATE RESISTANCE 3 UNITS SC (11:52)
[2024-03-11] MEDS: NSS IV (11:56)
[2024-03-11 11:59] LABS: Glucose - Point of Care 213 mg/dl (70-99)
--- NOTE | 2024-03-11 12:36 | W.PN.NEPH.PH ---
Today's Communication / Plan
-
follow labs
cont lasix
Assessment/Plan
-
Impression:
VERONICA
Status post CABG x 4 03/06/2024
Hypertension
Diabetes
Hyperlipidemia
Plan:
VERONICA:
-Likely prerenally mediated due to hypotension postoperatively
bp stable , holding anti-htns
cr improving slowly
ok to cont lasix per cards
getting 1 unit PRBC with lasix today
follow h/h, magno?
follow labs
d/w pt and nursing
-
-
Date of Service: March 11, 2024
CC / HPI / ROS
-
Chief Complaint:
VERONICA
History of Present Illness:
creatinine down to 2.3
hemodynamically more stable
hb low 7.9, magno overnight
wt decreasing slowly
Review of Systems:
no n/v
non oliguric
no cp or sob at rest
Labs
-
Labs:
WBC 15.4 10^3/uL (4.8-10.8) H 03/11/24 03:20
RBC 2.65 10^6/uL (4.70-6.10) L 03/11/24 03:20
Hgb 7.9 g/dL (13.0-18.0) L 03/11/24 03:20
Hct 23.2 % (39.0-52.0) L 03/11/24 03:20
Plt Count 296 10^3/uL (130-400) D 03/11/24 03:20
Sodium 135 mmol/L (135-145) 03/11/24 03:20
Potassium 4.7 mmol/L (3.5-5.1) 03/11/24 03:20
Chloride 100 mmol/L (98-107) 03/11/24 03:20
Carbon Dioxide 24 mmol/L (22-30) 03/11/24 03:20
BUN 81 mg/dl (9-20) H 03/11/24 03:20
Creatinine 2.3 mg/dL (0.7-1.3) H 03/11/24 03:20
eGFR 29.80 03/11/24 03:20
Glucose 149 mg/dl (70-99) H 03/11/24 03:20
Calcium 8.4 mg/dl (8.4-10.2) 03/11/24 03:20
Lhn-G-Mcyrejdwtpc Pept 2630 pg/ml 02/28/24 02:54
Albumin 4.3 g/dl (3.5-5.0) 03/01/24 06:56
Physical Exam
-
Vital Signs:
Vital Signs
Temp Pulse Resp BP Pulse Ox
97.4 F 87 16 122/72 94
03/11/24 11:55 03/11/24 11:55 03/11/24 11:55 03/11/24 11:55 03/11/24 11:55
Cardiovascular:: Regular rate and rhythm
Lung Excursion:: Normal (decreased)
Abdomen:: Nontender and Soft
Extremity Edema:: +1: Bilateral: (trace)
Huang Catheter: No
[2024-03-11] MEDS: TYLENOL PO (16:32)
[2024-03-11 18:01] LABS: Glucose - Point of Care 195 mg/dl (70-99)
[2024-03-11] MEDS: LIPITOR 40 MG PO (19:25)
[2024-03-11] MEDS: VITAMIN C 500 MG PO (19:25)
[2024-03-11] MEDS: FEOSOL 325 MG PO (19:25)
--- NOTE | 2024-03-11 21:30 | PTCARENOTE ---
Report received from GILBERT Morales. Walking rounds done. Pt walking in unit, to IVU waiting room and back. Pt oriented x 4. Speech clear. Equal extremity strength x 4. Pt on room air. Sat in bed: 94%. BBS present. Diminished to B bases. CDB and IS
encouraged. Audible heart tones. Pt in SR with BBB. Initial SBP 142. Repeat SBP 120's. For pulse and wound assessments, see flowsheets. V wire present. Insulated. Belly soft, nontender, obese. No BM yet on shift. Melena reported with last shift. (
pt also on iron) Order to hematest stools. Pt voids clear, yellow urine into urinal. Pt given CHG bath. New gown and linens provided. Dressing change to pacing wire site and former CT sites per protocol. Bedtime glucose done. 177. All meds given. Pt
going to sleep for evening. Ongoing plan of care.
[2024-03-11] MEDS: TOPROL XL 50 MG PO (21:49)
[2024-03-11 22:02] LABS: Glucose - Point of Care 177 mg/dl (70-99)
[2024-03-12] VITALS (10 sets, daily range): BP systolic 101–138; BP diastolic 62–89; BMI 36.1
--- NOTE | 2024-03-12 03:30 | PTCARENOTE ---
VS done. See flowsheet. Pt helped to BR to void clear, yellow urine. No BM. Pt then helped to standing scale, weighed. Pt helped back to bed. Labs drawn and sent. Pt attempting to go back to sleep. No c/o pain or discomfort.
[2024-03-12 04:06] LABS: Hematocrit 25.4 % (39.0-52.0); Hemoglobin 8.5 g/dL (13.0-18.0); Mean Corp Hgb Conc. 33.5 g/dL (33.0-37.0); Mean Corpuscular Hgb 30.4 pg (27.0-31.0); Mean Corpuscular Volume 90.7 fL (80.0-94.0); Mean Platelet Volume 10.2 fL (7.4-10.4); Platelet Count 325 10^3/uL (130-400); Red Cell Dist. Width 14.1 % (11.5-14.5); White Blood Cell Count 13.7 10^3/uL (4.8-10.8)
[2024-03-12 04:29] LABS: Blood Urea Nitrogen 69 mg/dl (9-20); Calcium 7.9 mg/dl (8.4-10.2); Carbon Dioxide 27 mmol/L (22-30); Chloride 104 mmol/L (98-107); Estimated Creatinine Clearance 37 ml/min; Glucose 135 mg/dl (70-99); Potassium 4.4 mmol/L (3.5-5.1); Sodium 142 mmol/L (135-145); eGFR 31.43
--- NOTE | 2024-03-12 05:16 | W.PN.CT ---
Today's Communication / Plan
-
-pod #6
-no issues overnight
-s/p 1 U PRBC yesterday, BID lasix. Hgb 7.9->8.5 today, Cr 2.3->2.2
-UOP 725/2150 in 12/24 hrs
-current meds (ASA, Plavix, Lipitor, Toprol XL 50 bid, Amio, Protonix).
-short/long acting insulin with SSI
-encourage IS, OOB
-appreciate everyone's input
Assessment / Plan
-
Assessment:
-Severe multivessel CAD- s/p Cabg x4 (corbin- diag/lad, ao -svg - pda, svg-svg- om3); REVH; LAAL #45 clip on 03/06/[address] Gibbs, pod #6
-Intraop Telly with EF 30 preop, some septal improvement postop, no new wma. Fatmata free of clot, post clip, no residual pouch or flow
-Acute systolic CHF
-ICM (LVEF 35% per echo 02/28/24)
-Hypertension
-T2DM (hgb A1C 7.1)
-Class 2 obesity (BMI 35)
-Suspected DELMAR
-Hepatitis C s/p Harvoni
-Former IVDA (sober for decades)
-Former tobacco abuse (Quit 34 years ago)
-Hereditary Hemochromatosis
-Melanoma S/p excision
-GERD/Dodd's esophagitis
-BPH S/P TURP
-S/P bilateral TKA
-S/P cholecystectomy
-Pre-existing RBBB/LAFB
-Acute postop blood loss anemia- stable
-Acute postop atelectasis
-Acute postop hypovolemia with subsequent hypervolemia
-Acute postop brief 9 beat SVT on 03/07
-VERONICA, suspect prerenal d/t hypotension-improving
Subjective
Procedure
- s/p Cabg x4 (corbin- diag/lad, ao -svg - pda, svg-svg- om3); REVH; LAAL #45 clip on 03/06/[address] Gibbs
-
Date of Service: March 12, 2024
Objective Data
-
Lab Results
03/12/24 03:49
03/12/24 03:49
PT 17.1 Sec (11.4-14.6) H 03/06/24 12:29
INR 1.41 03/06/24 12:29
APTT 30.6 Sec (23.4-35.0) 03/06/24 12:29
Vital Signs
Vital Signs
Temp Pulse Resp BP Pulse Ox
98.2 F 84 16 128/73 94
03/12/24 03:29 03/12/24 04:00 03/12/24 03:29 03/12/24 03:29 03/12/24 03:29
CT Intake/Output/Weight
03/11/24 03/11/24 03/12/24
06:59 18:59 06:59
Intake Total 1150 / 1400 250 / 1400
Output Total 550 / 1350 1425 / 2150 725 / 2150
Balance -550 / -1250 -275 / -750 -475 / -750
SaO2: 94
Physical Exam
-
General: Awake, Oriented and AOx3
Cardiovascular: Regular rate & rhythm, No Murmurs and No Rub
Respiratory: Clear and Decreased Breath Sounds
Sternum: Stable
Incision: Clean and Dry
Extremities: Edema +1 and No Erythema
Data Reviewed
-
Lab Results: Results Reviewed
Medications: Active Meds Reviewed
Chest X-Ray: Report Reviewed
ECG: Report Reviewed
[2024-03-12] MEDS: TYLENOL PO ×2 (06:37→15:13)
--- NOTE | 2024-03-12 06:51 | PTCARENOTE ---
Pt refused 0600 Tylenol. VS done. See flowsheet. Pt helped up to standing. Pt brushed teeth. Pt then sat in recliner chair. Report to GILBERT Morales.
--- NOTE | 2024-03-12 07:00 | PTCARENOTE ---
Bedside walking wounds report received. Patient seen on rounds assisted OOB to chair. 'Feels ready to be dc today and feels good' Neuro intact. NSR with RBBB. Plan: dc home today but plan to obtain hemocult stool prior to dc. Getting in and out of
bed by self. Room air. See flowrecord for remaining assessments.
[2024-03-12 07:38] LABS: Glucose - Point of Care 163 mg/dl (70-99)
[2024-03-12] MEDS: NOVOLOG FLEXPEN-MODERATE RESISTANCE 1 UNITS SC ×2 (07:38→13:23)
[2024-03-12] MEDS: NOVOLOG FLEXPEN 8 UNITS SC ×3 (07:39→16:25)
[2024-03-12] MEDS: LANTUS 0.2 UNITS SC (07:48)
[2024-03-12] MEDS: PROTONIX 40 MG PO ×2 (07:49→20:59)
[2024-03-12] MEDS: TOPROL XL 50 MG PO ×2 (07:49→20:59)
[2024-03-12] MEDS: VITAMIN C 500 MG PO (07:49)
[2024-03-12] MEDS: THERAGRAN 1 TABLET PO (07:49)
[2024-03-12] MEDS: PLAVIX 75 MG PO (07:49)
[2024-03-12] MEDS: LASIX 40 MG PO ×2 (07:50→15:58)
[2024-03-12] MEDS: LIDOCAINE 4% PATCH TOPICAL (07:50)
[2024-03-12] MEDS: LOW STRENGTH ASPIRIN 81 MG PO (07:50)
[2024-03-12] MEDS: FEOSOL 325 MG PO (07:50)
[2024-03-12] MEDS: SENOKOT-S 1 TABLET PO ×2 (07:50→20:59)
[2024-03-12] MEDS: REGLAN 5 MG PO (07:50)
[2024-03-12] MEDS: PACERONE 200 MG PO ×3 (07:51→20:58)
--- NOTE | 2024-03-12 09:00 | PTCARENOTE ---
Patient had moderate formed hard black stool: hemocult tested positive. [place], CT surgery [facility] [employer]IST aware of same. Will hold off on dc home and consult GI.
--- NOTE | 2024-03-12 09:36 | W.PN.UPDATE ---
Update Note
Progress Note Update
Patient is status post 1 unit of packed red blood cells yesterday. We were unable to test stools yesterday however this morning prior to discharge his stools came back heme positive. GI was consulted Plavix was discontinued and PPI was increased
to twice daily. Discharge is now canceled.
--- NOTE | 2024-03-12 12:00 | PTCARENOTE ---
No acute changes. Vitals stable NSR. Ambulating well. No acute changes.
--- NOTE | 2024-03-12 12:00 | W.PN.NEPH.PH ---
Today's Communication / Plan
-
follow labs
cont lasix
Assessment/Plan
-
Impression:
VERONICA
Status post CABG x 4 03/06/2024
Hypertension
Diabetes
Hyperlipidemia
Plan:
VERONICA:
-Likely prerenally mediated due to hypotension postoperatively
bp stable , holding anti-htns
cr improving slowly and non oliguric
ok to cont lasix per primary
monitor h/h , likely has GIB-GI consulted and increased PPI to BID
follow labs
d/w pt and CT surg
-
-
Date of Service: March 12, 2024
CC / HPI / ROS
-
Chief Complaint:
VERONICA
History of Present Illness:
creatinine down to 2.2
hemodynamically stable
hb up at 8.5 post 1 unit PRBC, still with magno
wt decreasing
stool +ve heme
Review of Systems:
no n/v
non oliguric
no cp or sob at rest
still orthopnea
Labs
-
Labs:
WBC 13.7 10^3/uL (4.8-10.8) H 03/12/24 03:49
RBC 2.80 10^6/uL (4.70-6.10) L 03/12/24 03:49
Hgb 8.5 g/dL (13.0-18.0) L 03/12/24 03:49
Hct 25.4 % (39.0-52.0) L 03/12/24 03:49
Plt Count 325 10^3/uL (130-400) 03/12/24 03:49
Sodium 142 mmol/L (135-145) 03/12/24 03:49
Potassium 4.4 mmol/L (3.5-5.1) 03/12/24 03:49
Chloride 104 mmol/L (98-107) 03/12/24 03:49
Carbon Dioxide 27 mmol/L (22-30) 03/12/24 03:49
BUN 69 mg/dl (9-20) H 03/12/24 03:49
Creatinine 2.2 mg/dL (0.7-1.3) H 03/12/24 03:49
eGFR 31.43 03/12/24 03:49
Glucose 135 mg/dl (70-99) H 03/12/24 03:49
Calcium 7.9 mg/dl (8.4-10.2) L 03/12/24 03:49
Hmc-E-Ticvcaclmln Pept 2630 pg/ml 02/28/24 02:54
Albumin 4.3 g/dl (3.5-5.0) 03/01/24 06:56
Physical Exam
-
Vital Signs:
Vital Signs
Temp Pulse Resp BP Pulse Ox
98 F 87 18 129/69 95
03/12/24 07:30 03/12/24 11:00 03/12/24 07:30 03/12/24 07:30 03/12/24 08:00
Cardiovascular:: Regular rate and rhythm
Respiratory:: Bilateral: CTA (decreased)
Lung Excursion:: Normal
Abdomen:: Nontender and Soft
Extremity Edema:: +2: Bilateral:
Huang Catheter: No
[2024-03-12 13:23] LABS: Glucose - Point of Care 159 mg/dl (70-99)
[2024-03-12] MEDS: NSS IV (13:26)
--- NOTE | 2024-03-12 13:55 | CON.GI ---
Consultation
-
Date/Time Consultation Requested: 03/12/2024
Date/Time Consultation Performed: 03/12/2024
Requesting Provider: CT surgery team
Performing Provider: Dr. Kennedy
Reason for Consultation: dark formed stools with new anemia requiring transfusion
Medical History
Chief Complaint / HPI
History of Present Illness:
Patient is a 69-year-old male with history of hypertension, diabetes, short segment Dodd's with controlled GERD on daily omeprazole, prior hep C treated with Harvoni with SVR, currently followed by Dr. Liao for his GI care who was admitted to
[facility] with new onset acute heart failure on 02/28/2024 and underwent catheterization revealing multivessel disease underwent CABG x4 on 03/06/2024. Patient was to be discharged today however he was experiencing some constipation
received a Dulcolax suppository and had a large hard dark stool. They heme checked it today which was positive. He has been on aspirin and Plavix since his CABG. Hemoglobin prior to admission was normal in the 14's postoperatively hemoglobin 9-10
and dropped down as low as 7.6 on 03/10/2024. Today status post 1 unit which responded appropriately to 8.5. Still having trouble moving his bowels they are hard and difficult to get out. I did review a picture and it does show dark formed stools.
No red blood. No prior GI bleeding. Other than the surgery no other areas of overt bleeding.
Patient's admission was also complicated by acute renal failure likely hypotension postop with top creatinine at 3.1 today 2.2. His BUN looks chronically elevated but worsened during his renal failure today 68
Past Medical History
Past Medical History: Other (HTN, PVCs, malignant melanoma s/p excision, hepatitis C (s/p Harvoni with SVR), hemochromatosis, RBBB (noted on EKG 09/2023), GERD/Dodd's esophagus, dyslipidemia, DM, and obesity)
Past Surgical History: Cardiac and Cholecystectomy
Social History
Tobacco: Former Smoker
Alcohol: Former
Drug: IVDA (former)
Family History
Family History: Reviewed & Not Pertinent
Allergies / Home Medications
Allergy/AdvReac Type Severity Reaction Status Date / Time
Penicillins Allergy Rash Verified 02/28/24 02:32
�Medication �Instructions �Recorded
metformin 1,000 mg tablet 1,000 mg PO BID Diabetes 02/28/24
therapeutic multivitamin 1 tab PO DAILY Supplement 02/28/24
zinc sulfate 50 mg zinc (220 mg) 50 mg PO DAILY Supplement 02/28/24
tablet
acetaminophen 325 mg tablet 650 mg (2 x 325 mg) PO Q4HPRN PRN 03/12/24
mild pain,headache,temp >101F #0
tabs
ascorbic acid (vitamin C) 500 mg 500 mg PO DAILY anemia #30 tabs 03/12/24
tablet
aspirin 81 mg chewable tablet 81 mg PO DAILY Blood clot 03/12/24
prevention/tx #0 tabs
atorvastatin 40 mg tablet 40 mg PO QPM High cholesterol #60 03/12/24
tabs
clopidogrel 75 mg tablet 75 mg PO DAILY graft patentcy #90 03/12/24
tabs
ferrous sulfate 325 mg (65 mg 325 mg PO DAILY anemia #30 tabs 03/12/24
iron) tablet (FeroSul)
furosemide 40 mg tablet 40 mg PO BID AT 0800,1600 Fluid 03/12/24
retention/Swelling #14 tabs
insulin aspart U-100 100 unit/mL 1 sliding scale dose SC 03/12/24
(3 mL) subcutaneous pen DIRECTED Diabetes #15 mL
insulin aspart U-100 100 unit/mL 8 unit (0.08 mL) SC AC Diabetes 30 03/12/24
(3 mL) subcutaneous pen days #3 mL
insulin glargine 100 unit/mL (3 20 unit (0.2 mL) SC DAILY Diabetes 03/12/24
mL) subcutaneous pen (Lantus #15 mL
Solostar U-100 Insulin)
metoprolol succinate 25 mg 50 mg (2 x 25 mg) PO BID Blood 03/12/24
tablet,extended release 24 hr pressure #60 tabs
pantoprazole 40 mg tablet,delayed 40 mg PO DAILY Gastrointestinal 03/12/24
release issue #90 tabs
potassium chloride 10 mEq 10 meq PO DAILY Electrolyte 03/12/24
tablet,extended release Repletion #7 tabs
sennosides 8.6 mg-docusate sodium 1 tab PO Q12 constipation while 03/12/24
50 mg tablet taking iron #30 tabs
Review of Systems
-
History Source: Patient
Vital Signs
Temp Pulse Resp BP Pulse Ox
98.1 F 85 18 101/89 93
03/12/24 12:09 03/12/24 13:00 03/12/24 12:09 03/12/24 12:11 03/12/24 13:00
Physical Exam
Results
WBC 13.7 10^3/uL (4.8-10.8) H 03/12/24 03:49
Hgb 8.5 g/dL (13.0-18.0) L 03/12/24 03:49
Hct 25.4 % (39.0-52.0) L 03/12/24 03:49
MCV 90.7 fL (80.0-94.0) 03/12/24 03:49
Plt Count 325 10^3/uL (130-400) 03/12/24 03:49
Absolute Neuts (auto) 7.1 10^3/uL (1.4-6.5) H 03/02/24 03:49
PT 17.1 Sec (11.4-14.6) H 03/06/24 12:29
INR 1.41 03/06/24 12:29
APTT 30.6 Sec (23.4-35.0) 03/06/24 12:29
Sodium 142 mmol/L (135-145) 03/12/24 03:49
Potassium 4.4 mmol/L (3.5-5.1) 03/12/24 03:49
Chloride 104 mmol/L (98-107) 03/12/24 03:49
Carbon Dioxide 27 mmol/L (22-30) 03/12/24 03:49
BUN 69 mg/dl (9-20) H 03/12/24 03:49
Creatinine 2.2 mg/dL (0.7-1.3) H 03/12/24 03:49
Calcium 7.9 mg/dl (8.4-10.2) L 03/12/24 03:49
Total Bilirubin 0.8 mg/dl (0.2-1.3) 03/01/24 06:56
AST 20 U/L (17-59) 03/01/24 06:56
ALT 21 U/L (0-50) 03/01/24 06:56
Alkaline Phosphatase 89 U/L (38-126) 03/01/24 06:56
Diagnostic Image Results:
Reviewed his chest x-ray and abdominal ultrasound from June 2023
Prior GI Procedures:
EGD: Patient states had an endoscopy this year with Dr. Liao for surveillance for his short segment Dodd's esophagus which was unrevealing per the patient
Colonoscopy: Patient had a negative Cologuard this year and his last colonoscopy was in [address] Wade showing pandiverticulosis otherwise no polyps.
Assessment / Plan
-
Jay is a 69-year-old male admitted for acute heart failure found to have multivessel disease and underwent CABG on 03/06/2024 who came in with a normal hemoglobin and no prior GI bleeding then 2 days prior to admission had a black formed stool
while on aspirin and Plavix postop while on once daily PPI who has been otherwise symptomatic and responded to 1 unit of blood
PMH: HTN, PVCs, malignant melanoma s/p excision, hepatitis C (s/p Harvoni with SVR), hemochromatosis, RBBB (noted on EKG 09/2023), GERD/Dodd's esophagus, dyslipidemia, DM, and obesity
# formed black stool with drop in hgb post CABG on 03/06/24
- patient has been hemodynamically stable
- has been on his once daily ppi throughout his admission
- no known cirrhosis - plts are normal in number
- responded well to 1 PRBCs
- on ASA/Plavix s/p CABG 03/06/24
- stop oral iron - patient has hemochromatosis and it confuses the picture - makes stools dark - will give a one time IV iron.
- would give blood if he needs it especially in the setting of VERONICA
-
he's having formed dark stool so not too concerned about anything significantly bleeding. looks like he responded to the 1 unit of blood. The only real reason to scope him would be if he had a lesion that needed endoscopically treated. I would just
keep him on BID ppi for now (can be decreased outpatient) as long as his hgb improves. I wouldn't give oral iron - worsens constipation (which he is experiencing) and makes the stools dark so he can't tell if he's bleeding. I would stay on the
plavix/ASA if he needs it. It would be unfortunate to drop his BP even lower and risk a complication from either his heart or his tenuous kidneys. As long as his hgb is stable and no significant overt bleeding, would follow up with labs in 1 wk with
his PCP. if anything appears to be slow oozing, he can see his outpatient GI, Dr. Liao. If anything significant or overt, come back to the hospital.
# constipation - start Miralax once daily until he is back to his baseline
# controlled GERD/Dodd's and CRC screening - follows with Dr. Liao at [facility]
Data Reviewed
-
Radiology: Report Reviewed by me
Ultrasound: Report Reviewed by me
Old Records: Reviewed
-
-
Thank you for consultation and allowing me to participate in the patient's care. Please call the wagon driver salesperson GI physician during the after hours with any questions or concerns.
[2024-03-12] MEDS: MIRALAX 17 GRAMS PO (15:58)
[2024-03-12] MEDS: NOVOLOG FLEXPEN-MODERATE RESISTANCE SC (16:26)
[2024-03-12 16:30] LABS: Glucose - Point of Care 118 mg/dl (70-99)
[2024-03-12] MEDS: LIPITOR 40 MG PO (17:28)
--- NOTE | 2024-03-12 18:20 | W.PN.CD ---
Today's Communication / Plan
-
transition to PO lasix
trend Hgb
Impression / Plan
-
BACKGROUND: 69M with HTN, PVCs, malignant melanoma s/p excision, hepatitis C (s/p Harvoni), hemochromatosis, RBBB (noted on EKG 09/2023), GERD/Dodd's esophagus, dyslipidemia, DM, and obesity presented with SOB. He was found to have an ischemic
cardiomyopathy and multivessel coronary artery disease now s/p CABG and SHEREEN clip.
MVCAD S/P CABG x 4 (CALDWELL�diagonal/LAD, ao�SVG�PDA, SVG�SVG�OM 3) & #[address] Gibbs 03/06/2024
-Pre-LVEF 30%, post EF unchanged with some septal improvement
-Remains clinically stable; continue routine postoperative management as per CT Surgery.
-EKG with bifascicular block and anterior T wave inversion, unchanged
-Follow telemetry
-ASA, plavix, metoprolol
Post op anemia
-s/p pRBC 03/11
Dark stool
-per GI: OK to cont ASA/Plavix, and trend Hgb
HFrEF/ICM (EF 30-35%), acute on chronic
-GDMT as tolerated
-Beta kellee: Toprol XL 50mg bid
-SGLT2: Jardiance and Farxiga are > $450 a month
-ACEI/ARB: ACEi on hold for VERONICA (Entresto $325/month)
-MRA: not started due to VERONICA
-Diuretic: transition to PO lasix
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
VERONICA
-Creatinine improving with diuresis
HTN:
-Will not resume outpatient amlodipine on discharge (no benefit in CHF).
-GDMT optimization for CHF as above.
Bifascicular block:
-RBBB noted 09/2023
-Continue electronic device monitor
Type II DM, Hgba1c 7.1%
Obesity:
-Weight loss and regular exercise recommended.
-Thinks he may have sleep apnea, so should consider OP sleep study with his PCP
Subjective:
Denies CP or SOB. +fatigue.
Physical Exam
Vital Signs/Labs
Vital Signs
Temp Pulse Resp BP Pulse Ox
98.3 F 98 18 123/73 96
03/12/24 15:22 03/12/24 17:12 03/12/24 15:22 03/12/24 15:25 03/12/24 15:25
03/11/24 03/12/24 03/13/24
06:59 06:59 06:59
Actual Weight 109.1 kg 107.8 kg
03/12/24 03:49
03/12/24 03:49
PT 17.1 Sec (11.4-14.6) H 03/06/24 12:29
INR 1.41 03/06/24 12:29
APTT 30.6 Sec (23.4-35.0) 03/06/24 12:29
Magnesium 3.3 mg/dl (1.6-2.3) H 03/11/24 03:20
Triglycerides 142 mg/dl (10-149) 02/29/24 08:04
LDL Cholesterol, Calc 135 mg/dl 02/29/24 08:04
VLDL Cholesterol, Calc 28 mg/dl (0-30) 02/29/24 08:04
HDL Cholesterol 40 mg/dl 02/29/24 08:04
02/28/24
02:54
Rpn-D-Gmekdsvgxlq Pept 2630
Physical Exam
Constitutional: No acute distress and Comfortable
EENT: Moist mucous membranes
Cardiovascular: Rhythm & rate is regular, Systolic murmur absent, Pedal edema present and JVD present
Respiratory: Respiratory effort normal and Lungs clear to auscul.
Neuro/Psych: AO x 3
Data Reviewed
-
Date of Service: March 12, 2024
EKG: Other (Tele: NSR 80s)
Labs: Labs Reviewed by me
[2024-03-12] MEDS: TYLENOL 1000 MG PO (20:59)
--- NOTE | 2024-03-12 21:00 | PTCARENOTE ---
Pt aaox4 w/o complaints of pain. NS VSS, RA clear ls, GI + for occult blood, benign, all surgical wounds CDI. See worklist for detailed assessment
[2024-03-13] VITALS (8 sets, daily range): BP systolic 118–146; BP diastolic 63–71; PULSE 88; O2SAT 94–96; BMI 35.9
[2024-03-13 04:44] LABS: Hematocrit 25.6 % (39.0-52.0); Hemoglobin 8.6 g/dL (13.0-18.0); Mean Corp Hgb Conc. 33.6 g/dL (33.0-37.0); Mean Corpuscular Hgb 29.7 pg (27.0-31.0); Mean Corpuscular Volume 88.3 fL (80.0-94.0); Mean Platelet Volume 9.5 fL (7.4-10.4); Platelet Count 371 10^3/uL (130-400); Red Cell Dist. Width 14.1 % (11.5-14.5); White Blood Cell Count 12.7 10^3/uL (4.8-10.8)
--- NOTE | 2024-03-13 04:47 | W.PN.CT ---
Today's Communication / Plan
-
-pod #7
-no issues overnight. no overt bloody BMs. PPI BID
-Hgb 8.5->8.6 today, BP at goal
-current meds (ASA, Plavix, Lipitor, Toprol XL 50 bid, Amio, Lasix 40 mg PO BID).
-short/long acting insulin with SSI
-encourage IS, OOB
-appreciate everyone's input
-Dispo planning
Assessment / Plan
-
Assessment:
-Severe multivessel CAD- s/p Cabg x4 (corbin- diag/lad, ao -svg - pda, svg-svg- om3); REVH; LAAL #45 clip on 03/06/[address] Gibbs, pod #7
-Intraop Telly with EF 30 preop, some septal improvement postop, no new wma. Fatmata free of clot, post clip, no residual pouch or flow
-Acute systolic CHF
-ICM (LVEF 35% per echo 02/28/24)
-Hypertension
-T2DM (hgb A1C 7.1)
-Class 2 obesity (BMI 35)
-Suspected DELMAR
-Hepatitis C s/p Harvoni
-Former IVDA (sober for decades)
-Former tobacco abuse (Quit 34 years ago)
-Hereditary Hemochromatosis
-Melanoma S/p excision
-GERD/Dodd's esophagitis
-BPH S/P TURP
-S/P bilateral TKA
-S/P cholecystectomy
-Pre-existing RBBB/LAFB
-Acute postop blood loss anemia- stable
-Acute postop atelectasis
-Acute postop hypovolemia with subsequent hypervolemia
-Acute postop brief 9 beat SVT on 03/07
-VERONICA, suspect prerenal d/t hypotension-improving
Subjective
Procedure
- s/p Cabg x4 (corbin- diag/lad, ao -svg - pda, svg-svg- om3); REVH; LAAL #45 clip on 03/06/[address] Gibbs
-
Date of Service: March 13, 2024
Objective Data
-
Lab Results
03/13/24 04:25
PT 17.1 Sec (11.4-14.6) H 03/06/24 12:29
INR 1.41 03/06/24 12:29
APTT 30.6 Sec (23.4-35.0) 03/06/24 12:29
Vital Signs
Vital Signs
Temp Pulse Resp BP Pulse Ox
98 F 85 18 138/62 96
03/12/24 22:06 03/12/24 22:00 03/12/24 22:06 03/12/24 21:04 03/12/24 15:25
CT Intake/Output/Weight
03/12/24 03/12/24 03/13/24
06:59 18:59 06:59
Intake Total 250 / 1650 325 / 325
Output Total 725 / 2150 300 / 300
Balance -475 / -500 25 / 25
SaO2: 96
Physical Exam
-
General: Awake, Oriented and AOx3
Cardiovascular: Regular rate & rhythm, No Murmurs and No Rub
Respiratory: Clear and Equal
Sternum: Stable
Incision: Clean, Dry and Intact
Extremities: No Erythema
Data Reviewed
-
Lab Results: Results Reviewed
Medications: Active Meds Reviewed
Chest X-Ray: Report Reviewed
ECG: Report Reviewed
[2024-03-13 05:10] LABS: Blood Urea Nitrogen 55 mg/dl (9-20); Calcium 7.9 mg/dl (8.4-10.2); Carbon Dioxide 28 mmol/L (22-30); Chloride 105 mmol/L (98-107); Estimated Creatinine Clearance 45 ml/min; Glucose 123 mg/dl (70-99); Potassium 4.3 mmol/L (3.5-5.1); Sodium 143 mmol/L (135-145); eGFR 39.99
--- NOTE | 2024-03-13 07:00 | PTCARENOTE ---
Bedside walking rounds report received. Patient seen on rounds oob in chair: 2l nasal canula: dypneic at rest and more us of accesory muscles noted: patiient stated: 'I don'rt feel good and I feel like I can't breathe and I'm not hungry' Patient is
noted to be in new onset a fibb: slow to controlled: amio bolus and gtt ordered: pt is hypotensive and CT surgery is aware of these acute changes: amio blous and gtt ordered. 2l nasal canula: pulse ox sats were 96%. Temp V wire reconnected to
[employer] box and off for backup if needed. Stat echo ordered. Patient is an assist of 2 today to bet back to bed. New #20ga iv established left forearm for amio gtt bolus plus gtt per cvicu policy. See flowrecord for remaining assessments.
--- NOTE | 2024-03-13 07:00 | PTCARENOTE ---
Bedside walking rounds report received. Patient seen on rounds resting oob in chair and aambulating ad clemencia without assistance. Denies pain. NSR with RBBB. Looking forward to be dc to home today. See flowrecord for remaining assessments.
--- NOTE | 2024-03-13 07:33 | PN.DE.MGMTRT ---
Insulin Management
- -
03/13/2024 Diabetes Management F/U:
Patient admitted 02/27 with difficulty breathing, increasing SOB, new CHF S/P cardiac cath 02/28.
PMH: CAD, Dodd's esophagus, hepatitis, melanoma, HTN, diabetes, GERD, T2DM. Prior to admission was taking metformin 1000 mg BID. A1C on admission 7.1%. States he was not test his glucose prior to admission.
Patient is awake, alert and oriented out of bed in chair, able to discuss diabetes management.
POD #7 s/p CABG x 4, Cr improving 1.8, eGFR 39.99 today. Transitioned off Glycemic protocol 03/09 to SQ insulin due to VERONICA.
Glucose stable and in range, premeal 118 to 163, FBG 123 this AM.
Will make no changes to current regimen. Lantus 20 units in AM, NovoLog 8 units AC with moderate corrective.
Will not start SGLT2 due to VERONICA. Will start Farxiga and resume Metformin when Cr improves.
Reviewed testing instructions and testing procedure for Contour Next meter with pt again.
03/09 Instructed on times to test and target ranges, highlighted in diabetes booklet. Instructed on prep and injection technique for both Lantus and NovoLog with good return demonstration. Nursing to reinforce and have patient self inject all
injections with nursing supervision.
Discussed with pt and Nurse at bedside.
Diabetes History
- -
Type of Diabetes: 2 requiring insulin
Pre-Admission Diabetes Regimen
03/13/24
04:25
Creatinine 1.8 H
Lab Results
Hemoglobin A1c 7.1 % (4.0-5.6) H 02/29/24 08:04
Insulin Pump Settings
IP Diabetes Regimen
03/12/24 03/12/24 03/12/24
07:36 13:21 16:24
Glucose
POC Glucose 163 H 159 H 118 H
03/13/24
04:25
Glucose 123 H
POC Glucose
Meal type: Dinner
Meal type: Breakfast
Amount consumed: 100%
Amount consumed: 100%
Patient Education
--- NOTE | 2024-03-13 07:58 | W.PN.CD ---
Today's Communication / Plan
-
Continue oral diuretics.
Monitor renal function.
If renal function continues to improve, we will add lisinopril and spironolactone as an outpatient.
SGLT2i/Sacubitril-Valsartan are cost prohibitive.
CTS angling for discharge.
Impression / Plan
-
Impression/Plan: 69M with HTN, PVCs, malignant melanoma s/p excision, hepatitis C (s/p Harvoni), hemochromatosis, RBBB (noted on EKG 09/2023), GERD/Dodd's esophagus, dyslipidemia, DM, and obesity presented with SOB. He was found to have an
ischemic cardiomyopathy and multivessel coronary artery disease now s/p CABG and SHEREEN clip.
#MVCAD
-S/P CABG x 4 (Sequential CALDWELL to diagonal to LAD, SVG to PDA, SVG Y-graft off of SVG to OM3) & #[address] Gibbs 03/06/2024
-EKG with bifascicular block and anterior T wave inversion, unchanged.
-Encourage incentive spirometry.
-Ambulate as tolerated.
-Continue amiodarone, aspirin, atorvastatin, clopidogrel, metoprolol.
#Post op anemia
-Acute.
-s/p pRBC x1, 03/11/2024.
-Stable at 8.6.
#Dark stool
-GI involved.
-Per GI: OK to cont ASA/Plavix, and trend Hgb.
-Avoid PO iron as it will worsen constipation and turn stool dark (and make it heme +).
#HFrEF/ICM (EF 30-35%), acute on chronic
-GDMT as tolerated.
-Beta kellee: metoprolol succinate 50mg bid.
-SGLT2: Jardiance and Farxiga are > $450 a month.
-ACEI/ARB: ACEi on hold for VERONICA (Entresto $325/month). We will start low dose as creatinine normalizes.
-MRA: not started due to VERONICA. As creatinine normalizes, we will consider spironolactone.
-Diuretic: transitioned to PO lasix. Continue as an outpatient.
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
#VERONICA
-Creatinine improving with diuresis.
-Continue PO diuresis.
#HTN
-Chronic, stable.
-GDMT optimization for CHF as above.
-Hold amlodipine as there is no benefit in HFrEF.
-If more BP control is needed, we will treat with ACEI/MRA.
#Bifascicular block
-Chronic.
-RBBB noted, 09/2023.
-Continue quality assurance monitor body.
#Type II DM
-Chronic, stable.
-Hgba1c = 7.1%.
-Per primary team.
#Obesity:
-Weight loss and regular exercise recommended.
-Thinks he may have sleep apnea, so should consider OP sleep study with his PCP.
Subjective/Interval History:
The patient had a large, hard dark stool yesterday, heme +.
Hbg down to 7.6 (03/10/2024).
S/P one unit of PRBCs with appropriate response.
Weight down 0.6 kg.
Creatinine continues to improve, now 1.8.
DATA:
TTE, 02/28/2024:
CONCLUSIONS
Normal LV size with moderately reduced systolic function.
Estimated ejection fraction of 35%.
Global diffuse hypokinesis. Mild to moderate LVH.
Normal right ventricular size and function.
No significant valvular disease.
Compared to prior from August 08, 2018, EF is now moderately reduced estimated at
35% previously normal 55-60%.
Cardiac Catheterization, 02/29/2024:
CONCLUSIONS
1:�Elevated LVEDP
2:�Severe anterolateral and apical hypokinesis with EF 27%
3. Triple-vessel CAD as described
4. Given the presence of severe left ventricular dysfunction, triple-vessel CAD and diabetes mellitus CABG is recommended as the optimal revascularization strategy. Optimal revascularization would include grafting of the LAD, D2 if sizable enough
for accepting a graft, OM 3, and RPDA
5. Continue diuresis and GDMT for systolic heart failure
Intraprocedural BROOKE, 03/06/2024:
CONCLUSIONS
Severe hypokinesis of the left ventricle with LVEF of 25% by visual inspection.
Septal wall dyskinesia is noted.
Normal right ventricular systolic function.
The cardiac valves are grossly normal.
Normal left atrial appendage.
Grade III atheromatous disease in the arch and descending thoracic aorta.
POST OPERATIVE FINDINGS
S/P CABG
The left ventricular function is improved with an ejection fraction of 35% by
visual inspection. The septal wall function is improved with myocardial
thickening during systole. The left atrial appendage is no longer visible, and
color Doppler confirms the absence of flow. Otherwise unchanged exam.
Physical Exam
Vital Signs/Labs
Vital Signs
Temp Pulse Resp BP Pulse Ox
36.6 C 97 18 118/71 96
03/12/24 22:06 03/13/24 07:00 03/12/24 22:06 03/13/24 03:00 03/13/24 04:47
03/11/24 03/12/24 03/13/24
11:59 11:59 11:59
Actual Weight 109.1 kg 107.8 kg 107.1 kg
03/13/24 04:25
03/13/24 04:25
PT 17.1 Sec (11.4-14.6) H 03/06/24 12:29
INR 1.41 03/06/24 12:29
APTT 30.6 Sec (23.4-35.0) 03/06/24 12:29
Magnesium 3.3 mg/dl (1.6-2.3) H 03/11/24 03:20
Triglycerides 142 mg/dl (10-149) 02/29/24 08:04
LDL Cholesterol, Calc 135 mg/dl 02/29/24 08:04
VLDL Cholesterol, Calc 28 mg/dl (0-30) 02/29/24 08:04
HDL Cholesterol 40 mg/dl 02/29/24 08:04
02/28/24
02:54
Epb-M-Chgqlrjogrq Pept 2630
Physical Exam
Constitutional: No acute distress and Comfortable
EENT: Anicteric and Moist mucous membranes
Cardiovascular: Rhythm & rate is regular, Pedal edema is absent, JVD pressure is normal, S1S2 is normal and Murmur/rub/gallop absent
Respiratory: Respiratory effort normal, Wheeze Absent, Rhonchi Absent and Crackles Present (Bilateral bases.)
GI: Soft, Distention absent, Flat, Non tender and Normal bowel sounds
Neuro/Psych: AO x 3
Data Reviewed
-
Date of Service: March 13, 2024
Medical Decision Making: Reviewed Test Results, Independent Historian Assessment and Test Interpretation
EKG: Tracing Personally Visualized and interpreted and Report Reviewed by me
Echo: Report Reviewed by me
X-Ray/CT/US/MRI/NUC/PET: Image Personally Visualized and interpreted and Report Reviewed by me
Medical Tests (PFT, Pathology etc): Report Reviewed by me
Labs: Labs Reviewed by me
Old Records: Reviewed
--- NOTE | 2024-03-13 08:38 | W.DCSUMMARY ---
Discharge Summary
Discharge Data
Date of Admission: 02/28/24
Date of Discharge: 03/13/24
Total time spent discharging patient (in min): 35
-
Pending Results: Yes
Hospital Course
Primary care physician:
Dr. Laith Mohamud
Outpatient bicycle repairer:
Dr. Lea
Inpatient consultants:
CBC, Gastrointestinal, Nephrology, Supervisor Paper Testing, anesthesia, Diabetes management SAS ANALYST
Procedures:
1. CABG x 4 (CALDWELL�diagonal/LAD, ao�SVG�PDA, SVG�SVG�OM 3) & #45 SHEREEN clip
Primary Diagnosis:
1. Multivessel coronary disease
Secondary Diagnoses:
1. Acute systolic congestive heart failure
2. Ischemic cardiomyopathy
3. Hypertension
4. Type 2 diabetes mellitus
5. Obesity
6. History of hepatitis C s/p treatment
7. Acute kidney injury
8. Melena
9. Acute postop blood loss anemia
10. Acute postop atelectasis
HPI: 69-year-old male that presented to [facility] on 02/27 with progressive COHN and lower extremity edema was found to have multivessel disease and acute heart failure. He was eventually brought to the CV OR on 03/[address] Gibbs for
coronary artery bypass.
Hospital course:
On 03/07 postoperative day #1 patient was weaned off Levophed mediastinal chest tubes were removed pleural's were bulb. He was weaned on oxygen and started on aspirin, Plavix, and beta-blockers. Huang catheter was removed. On 03/08 postoperative
day #2 patient's creatinine increased to 2.9 from a baseline of 1.2. Nephrology was consulted and was started on lactated Ringer's at 100 mL an hour. Repeat BMP and creatinine continue to increase to 3.1. Insulin drip was continue secondary to
his VERONICA. On 03/09 postoperative day #3, patient's creatinine improved slightly. Lactated Ringer's was discontinued and he was diuresed with 20 mg of IV Lasix. His beta-blockers were increased to 25 mg twice daily and pleural chest tube was
removed. On 10 postoperative day #4 patient was given 40 mg of IV Lasix and Cordis was removed. CONCETTA stockings were applied. On 03/11 postoperative day #5 patient was found to be anemic with dark stools. Hemoccults were ordered. He received 1
unit of packed red blood cells and received 40 mg of IV Lasix twice daily. Creatinine continued to trend down. On 03/12 postoperative day #6, hemoglobin improved with transfusion. However, BM was positive for blood with Hemoccult testing and
discharge was canceled. Gastroenterology was consulted and Protonix was increased to twice daily. On 03/13 postoperative day #7, hemoglobin remained stable along with creatinine continuing to trend down. P.o. Lasix was ordered to continue. He was
deemed stable for discharge with follow-up labs on Wednesday. The plan will be to start metformin, Entresto, and Farxiga if acute kidney injury resolves. He is also to follow-up with his primary care provider about the decreasing of Protonix in the
future.
Home medication changes:
See below
Discharge Plan
-
Patient Disposition: Home (Routine Discharge)
Discharge Diagnosis/Procedures: Coronary artery bypass grafting x4
Condition: Fair
Diet: Low Cholesterol, 2 Gram Sodium and Restrict fluids to 64 oz
Activity: No strenuous activity
Driving Restrictions: No driving
Bathing Restrictions: OK to Shower
Blood Work: Repeat BMP and CBC on saturday 03/17
Other Services: Cardiac Rehab
Specialty Instructions: Weigh Daily- Call MD for wt gain/loss 3 lbs overnight/5 lbs in 1 week
Activity Restrictions/Additional Instructions:
ACTIVITY:
-No strenuous activity: no heavy lifting, pushing, pulling anything over 15 pounds for one month
-continue to use stairs as tolerated
DRIVING RESTRICTIONS:
-No driving for one month or until approved by your surgeon
WOUND CARE:
-Shower daily. Use soap & water.
-No lotions, creams or powders on incision area.
DIET:
-continue a low fat/low cholesterol diet.
-IF you are diabetic, continue carb controlled diet.
CARDIAC REHAB:
-Please make appointment to start in 5-6 weeks with your local hospital program. (See Cardiac Rehabilitation Discharge Booklet).
SPECIALTY INSTRUCTIONS:
-Weigh yourself daily. Call your physician for any weight gain/loss of 3 lbs overnight or 5 lbs in one week.
-REPORT any clicking noise or uneven appearance of your sternum to your surgeon immediately.
-If you smoke, you are instructed to quit. The [place] smoking hotline phone number is [phone]
Instructions: *PCP/Other Animal Care Attendant Heart Failure Instructions
Referrals:
CT Transitional Care Nurse [Outside]
(
The Cardiothoracic Transitional Care Nurse will call you to set up a visit in 1-2 days.)
[facility] [Outside] - 04/14/24 1:00 pm
(Cardiac Rehab Orientation appointment is on Sunday April 14, 2024 @ 1:00pm.
The Cardiac Rehab gym is located on the first floor of the [facility].)
Radha Ribera CRNP [Specified Professional Personl] - 05/01/24 10:00 am
Tung Gibbs MD [Active] - 05/04/24 9:45 am
Scott Liao MD [Non-Admitting Privileges] - in two to three weeks
Laith Mohamud MD [Family Provider] - in two weeks
Kathie Chua CRNP [Specified Professional Personl] - 03/17/24 1:15 pm (Our office will call you)
Additional Discharge Medication Instructions: Please do not resume your metformin until directed by a medical professional
You will follow up in Ct surgery office in one week along with getting repeat blood work. While in the office you will be evaluated to start entresto and farxiga.
You will be taking protonix twice a day until you follow up with your PCP/GI doctor. Please do not decrease until directed by a medical professional
Prescriptions:
New
furosemide 40 mg Tablet
40 mg PO BID AT 0800,1600 Qty: 14 0RF
atorvastatin 40 mg Tablet
40 mg PO QPM Qty: 60 1RF
acetaminophen 325 mg Tablet
650 mg PO Q4HPRN PRN (Reason: mild pain,headache,temp >101F ) Qty: 0 0RF
clopidogrel 75 mg Tablet
75 mg PO DAILY Qty: 90 3RF
ferrous sulfate [FeroSul] 325 mg (65 mg iron) Tablet
325 mg PO DAILY Qty: 30 0RF
aspirin 81 mg Tablet,Chewable
81 mg PO DAILY Qty: 0 0RF
metoprolol succinate 25 mg Tablet Extended Release 24 Hr
50 mg PO BID Qty: 60 0RF
insulin glargine [Lantus Solostar U-100 Insulin] 100 unit/mL (3 mL) insulin pen
20 unit SC DAILY Qty: 15 0RF
insulin aspart U-100 100 unit/mL (3 mL) insulin pen
8 unit SC AC 30 Days Qty: 3 0RF
sennosides-docusate sodium 8.6-50 mg Tablet
1 tab PO Q12 Qty: 30 0RF
ascorbic acid (vitamin C) 500 mg Tablet
500 mg PO DAILY Qty: 30 0RF
insulin aspart U-100 100 unit/mL (3 mL) insulin pen
1 sliding scale dose SC DIRECTED Qty: 15 0RF
Rx Instructions:
70-149mg/dL---No Insulin, 150-199mg/dL --- 1 unit, 200-249mg/dL --- 3 unit, 250-299 mg/dL ---5 units
potassium chloride 10 mEq tablet extended release
10 meq PO DAILY Qty: 7 0RF
pantoprazole [Protonix] 40 mg tablet,delayed release (DR/EC)
40 mg PO BID Qty: 30 0RF
Continued
therapeutic multivitamin Tablet
1 tab PO DAILY
zinc sulfate 50 mg zinc (220 mg) Tablet
50 mg PO DAILY
Held
metformin 1,000 mg Tablet
1,000 mg PO BID
Hold Instructions: Resume on 04/06/24. Do not resume until directed by a medical professional
Discontinued
amlodipine 5 MG tablet
5 mg PO DAILY Qty: 0 0RF
Rx Instructions:
Hold if systolic blood pressure <130 while on Oxycodone.
omeprazole 40 MG capsule,delayed release(DR/EC)
40 mg PO DAILY Qty: 0 0RF
lisinopril-hydrochlorothiazide 20-25 mg Tablet
1 tab PO DAILY
Discharge Orders:
Discharge Patient (As Directed); Ordered 03/13/24
Ordered By: June Garcia
Care Plan Goals
Care Plan Goals:
Problem: Readiness for enhanced knowledge related to diagnosis and treatment plan
Goal: Understand your diagnosis and treatment plan needs, including medications if applicable.
Instructions: Know your diagnosis, underlying causes and treatment plan options, including medications if applicable. Consult with your health care team to learn about your diagnosis and treatment plan, including medications if applicable.
Discharge Date and Time
Print Language: TURKISH
[2024-03-13] MEDS: SENOKOT-S 1 TABLET PO (08:55)
[2024-03-13] MEDS: MIRALAX 17 GRAMS PO (08:55)
[2024-03-13] MEDS: LANTUS 0.2 UNITS SC (08:55)
[2024-03-13] MEDS: TOPROL XL 50 MG PO ×2 (08:56→09:58)
[2024-03-13] MEDS: PACERONE 200 MG PO (08:56)
[2024-03-13] MEDS: THERAGRAN 1 TABLET PO (08:56)
[2024-03-13] MEDS: PROTONIX 40 MG PO (08:56)
[2024-03-13] MEDS: PLAVIX 75 MG PO ×2 (08:56→09:59)
[2024-03-13] MEDS: VITAMIN C 500 MG PO (08:57)
[2024-03-13] MEDS: LIDOCAINE 4% PATCH TOPICAL (08:57)
[2024-03-13] MEDS: TYLENOL PO (08:57)
[2024-03-13] MEDS: LOW STRENGTH ASPIRIN 81 MG PO ×2 (08:57→09:59)
[2024-03-13] MEDS: LASIX 40 MG PO (08:57)
[2024-03-13] MEDS: NOVOLOG FLEXPEN-MODERATE RESISTANCE 1 UNITS SC (08:58)
[2024-03-13] MEDS: NOVOLOG FLEXPEN 8 UNITS SC (08:59)
[2024-03-13 09:00] LABS: Glucose - Point of Care 188 mg/dl (70-99)
--- NOTE | 2024-03-13 10:31 | W.PN.NEPH.PH ---
Today's Communication / Plan
-
dc
Assessment/Plan
-
Impression:
VERONICA
Status post CABG x 4 03/06/2024
Hypertension
Diabetes
Hyperlipidemia
Plan:
for dc
follow up BMP in 1 week
-
-
Date of Service: March 13, 2024
CC / HPI / ROS
-
Chief Complaint:
VERONICA
History of Present Illness:
creatinine down to 1.8
hemodynamically stable
hgb stable 8.6
Review of Systems:
no n/v
non oliguric
no cp or sob at rest
Labs
-
Labs:
WBC 12.7 10^3/uL (4.8-10.8) H 03/13/24 04:25
RBC 2.90 10^6/uL (4.70-6.10) L 03/13/24 04:25
Hgb 8.6 g/dL (13.0-18.0) L 03/13/24 04:25
Hct 25.6 % (39.0-52.0) L 03/13/24 04:25
Plt Count 371 10^3/uL (130-400) 03/13/24 04:25
Sodium 143 mmol/L (135-145) 03/13/24 04:25
Potassium 4.3 mmol/L (3.5-5.1) 03/13/24 04:25
Chloride 105 mmol/L (98-107) 03/13/24 04:25
Carbon Dioxide 28 mmol/L (22-30) 03/13/24 04:25
BUN 55 mg/dl (9-20) H 03/13/24 04:25
Creatinine 1.8 mg/dL (0.7-1.3) H 03/13/24 04:25
eGFR 39.99 03/13/24 04:25
Glucose 123 mg/dl (70-99) H 03/13/24 04:25
Calcium 7.9 mg/dl (8.4-10.2) L 03/13/24 04:25
Snr-H-Hahotcvgfpl Pept 2630 pg/ml 02/28/24 02:54
Albumin 4.3 g/dl (3.5-5.0) 03/01/24 06:56
Physical Exam
-
Vital Signs:
Vital Signs
Temp Pulse Resp BP Pulse Ox
98.6 F 91 20 125/69 95
03/13/24 08:51 03/13/24 08:51 03/13/24 08:51 03/13/24 08:51 03/13/24 08:51
Cardiovascular:: Regular rate and rhythm
Respiratory:: Bilateral: Coarse
Lung Excursion:: Normal
Abdomen:: Nontender and Soft
Bowel Sounds:: Normal
Extremity Edema:: None: Bilateral:
--- NOTE | 2024-03-13 12:00 | PTCARENOTE ---
No acute changes. Vitals stable. Clear for dc to home. Showered yesterday. Temp epicardial v wire cut and retracted by NHUNG Burrell. Patient did demonstrate earlier proper technique of insulin subcutaneous injection to LLQ. See dc instutions.
[2024-03-13] MEDS: NOVOLOG FLEXPEN SC (12:31)
[2024-03-13] MEDS: NOVOLOG FLEXPEN-MODERATE RESISTANCE SC (12:32)
--- NOTE | 2024-03-13 14:54 | PTCARENOTE ---
Addendum entered by Juan Miguel Whelan RN 03/13/24 14:58:
Time of this note was 0700
Original Note:
Patient took all meds and did vomit all meds partially digested a few minutes after. NHUNG Burrell aware. New orders received for Beta kellee, ASA and plavix to be regiven. 'patient swallowed all meds too quickly'. No further nausea noted. See
flowrecord for remaining assessments.
--- NOTE | 2024-03-14 10:58 | W.HF.CON ---
Heart Failure
- LV Function
Left ventricular function study result: LV Ejection fraction </= 35%
Ejection Fraction Percentage: 35
- ARNI
Patient already on ARNI: No
Heart Failure ARNI Contraindication: Acute Renal Failure
- ACEI/ARB
Patient already on ACEI/ARB: No
Heart Failure ACEI/ARB Contraindication: Acute Renal Failure
- Beta Julieth
Patient already on Evidence Based Beta Julieth: Yes
- Mineralocorticord Receptor Antagonist
Patient already on MRA: No
Heart Failure MRA Contraindication: Acute Renal Insufficiency
- SGLT-2 Inhibitor
Patient already on SGLT-2 Inhibitor: No
Heart Failure SGLT-2 Inhibitor Contraindication: Patient Refusal
- NYHA CHF Classification
NYHA CHF Classification Level: Class III - Symptoms w/ min exertion, interferes w/ nml daily activity
- ACC/AHA Stage
ACC/AHA Stage: Stage C: Symptomatic Heart Failure
== END 2024-03-13 13:40 | disposition home or self-care (01) | DRG 233 ==
LOC: CVICU 05:47
PROVIDERS: Anesthesiology; Clinical Nurse Specialist Acute Care; Hospitalist; Internal Medicine Cardiovascular Disease; Nurse Practitioner; Physician Assistant Medical; ADMITTING PHYSICIAN Hospitalist; ATTENDING PHYSICIAN Thoracic Surgery (Cardiothoracic Vascular Surgery); CONSULT PHYSICIAN Internal Medicine; CONSULT PHYSICIAN Specialist; EMERGENCY PHYSICIAN Student in an Organized Health Care Education/Training Program; FAMILY PHYSICIAN Family Medicine; OTHER PHYSICIAN Internal Medicine Cardiovascular Disease
PROC: 4A023N7 Measurement of Cardiac Sampling and Pressure, Left Heart, Percutaneous Approach (ICD-10-PCS; 2024-02-29)
PROC: B2111ZZ Fluoroscopy of Multiple Coronary Arteries using Low Osmolar Contrast (ICD-10-PCS; 2024-02-29)
PROC: B2151ZZ Fluoroscopy of Left Heart using Low Osmolar Contrast (ICD-10-PCS; 2024-02-29)
PROC: 021109W Bypass Coronary Artery, Two Arteries from Aorta with Autologous Venous Tissue, Open Approach (ICD-10-PCS; 2024-03-06)
PROC: 02110Z9 Bypass Coronary Artery, Two Arteries from Left Internal Mammary, Open Approach (ICD-10-PCS; 2024-03-06)
PROC: 5A1221Z Performance of Cardiac Output, Continuous (ICD-10-PCS; 2024-03-06)
PROC: B24BZZ4 Ultrasonography of Heart with Aorta, Transesophageal (ICD-10-PCS; 2024-03-06)
PROC: 02L70CK Occlusion of Left Atrial Appendage with Extraluminal Device, Open Approach (ICD-10-PCS; 2024-03-06)
PROC: 06BP4ZZ Excision of Right Saphenous Vein, Percutaneous Endoscopic Approach (ICD-10-PCS; 2024-03-06)
PROC: 30233N1 Transfusion of Nonautologous Red Blood Cells into Peripheral Vein, Percutaneous Approach (ICD-10-PCS; 2024-03-11)
DX: I25.10 Atherosclerotic heart disease of native coronary artery without angina pectoris (principal); I50.21 Acute systolic (congestive) heart failure; I45.2 Bifascicular block; N17.9 Acute kidney failure, unspecified; K92.1 Melena; D62 Acute posthemorrhagic anemia; J98.11 Atelectasis; I47.10 Supraventricular tachycardia, unspecified; I95.81 Postprocedural hypotension; K59.00 Constipation, unspecified; E86.1 Hypovolemia; I11.0 Hypertensive heart disease with heart failure; E11.9 Type 2 diabetes mellitus without complications; E66.09 Other obesity due to excess calories; Z68.35 Body mass index [BMI] 35.0-35.9, adult; E83.110 Hereditary hemochromatosis; K21.9 Gastro-esophageal reflux disease without esophagitis; N40.0 Benign prostatic hyperplasia without lower urinary tract symptoms; K22.70 Barrett's esophagus without dysplasia; G47.33 Obstructive sleep apnea (adult) (pediatric); E78.00 Pure hypercholesterolemia, unspecified; I49.3 Ventricular premature depolarization; I25.5 Ischemic cardiomyopathy; B19.20 Unspecified viral hepatitis C without hepatic coma; Z11.52 Encounter for screening for COVID-19; Z85.820 Personal history of malignant melanoma of skin; Z79.84 Long term (current) use of oral hypoglycemic drugs; Z82.49 Family history of ischemic heart disease and other diseases of the circulatory system; Z87.891 Personal history of nicotine dependence
CPT/HCPCS: 94727; 94729; 71045; 71046; 71275; 80048; 80053; 80061; 81003; 82248; 82330; 82565; 82805; 82810; 82947; 82962; 83036; 83735; 83880; 84132; 84302; 84443; 84484; 84520; 85014; 85018; 85025; 85027; 85049; 85610; 85730; 86850; 86900; 86901; 86920; 87811; 93005; 93306; 93312; 93320; 93325; 93458; 93880; 94060; 94640; 96374; 99291; C1713; C1894; J2916; P9016; Q9950; Q9967

== ENCOUNTER 2024-03-15 19:56 | Inpatient (IN) | payer MEDICARE, OTHER, SELFPAY ==
[2024-03-15] VITALS (12 sets, daily range): BP systolic 127–169; BP diastolic 70–88; BMI 34.8
[2024-03-15 15:27] LABS: % Basophils 0.2 % (0-2); % Eosinophils 3.5 % (0-6); % Immature Granulocytes 0.7 % (0-0.5); % Lymphocytes 9.2 % (20.5-51.1); % Monocytes 7.9 % (1.7-9.3); % Neutrophils 78.5 % (42.2-75.2); Absolute Eosinophils 0.5 10^3/uL (0-0.7); Absolute Immature Granulocytes 0.1 10^3/uL (0-0.05); Absolute Lymphocytes 1.3 10^3/uL (1.2-3.4); Absolute Monocytes 1.1 10^3/uL (0.1-0.6); Absolute Neutrophils 11.1 10^3/uL (1.4-6.5); Hematocrit 26.2 % (39.0-52.0); Hemoglobin 8.7 g/dL (13.0-18.0); Mean Corp Hgb Conc. 33.2 g/dL (33.0-37.0); Mean Corpuscular Hgb 29.4 pg (27.0-31.0); Mean Corpuscular Volume 88.5 fL (80.0-94.0); Mean Platelet Volume 9.2 fL (7.4-10.4); Nucleated Red Blood Cells % 0 % (-); Platelet Count 462 10^3/uL (130-400); Red Blood Cell Count 2.96 10^6/uL (4.70-6.10); Red Cell Dist. Width 14.1 % (11.5-14.5); White Blood Cell Count 14.2 10^3/uL (4.8-10.8)
[2024-03-15 15:47] LABS: ALT (SGPT) 74 U/L (0-50); AST (SGOT) 40 U/L (17-59); Alkaline Phosphatase 152 U/L (38-126); Blood Urea Nitrogen 36 mg/dl (9-20); Carbon Dioxide 26 mmol/L (22-30); Chloride 106 mmol/L (98-107); Estimated Creatinine Clearance 50 ml/min; Glucose 190 mg/dl (70-99); Potassium 4.2 mmol/L (3.5-5.1); Sodium 142 mmol/L (135-145); Total Bilirubin 0.5 mg/dl (0.2-1.3); Total Protein 5.4 g/dl (6.3-8.2); eGFR 46.06
[2024-03-15 16:48] LABS: Magnesium 2.2 mg/dl (1.6-2.3)
--- NOTE | 2024-03-15 16:54 | ED.GENMED ---
History of Present Illness
General
Chief Complaint: Abnormal Lab Value
Source: patient and records
Exam Limitations: none
Time Seen by Provider: 03/15/24 15:05
Nursing documentation reviewed up to this point in time: agreed with
History of Present Illness
History of Present Illness:
Patient is a 69-year-old male who 2 weeks ago had quadruple bypass surgery and clipping of his atrial appendage and presents today with tingling in his hands and generalized weakness with increasing shortness of breath. Patient states that he can
walk up a couple stairs before he has to stop due to shortness of breath. Patient denies fever or chills, nasal congestion, sore throat or cough. Patient denies abdominal pain, nausea, vomiting. Patient has soft black stools. Patient had melena
in the hospital. Patient was being transfused however the IV infiltrated and the decided not to transfuse as he seemed to stabilize. Patient also had renal impairment. Patient states he has mild swelling of his lower extremities. Patient denies
any symptoms. Patient just noted bruising on his right inner thigh.
Past History
Past History
ED Past Medical History: CAD, Cancer (Melanoma), GERD, HTN, Other (Urinary retention, hep A, B, C, macular degeneratioin) and Other (prostate)
ED Past Surgical History: Cardiac and Other (Biopsy, cervical disc surgery)
Social History
Tobacco: Non-smoker
Alcohol: None
Drug: None
Personal: Single
Living: alone
Employment: Employed
Family History
Family History: Other (Noncontributory)
Review of Systems
Review of Systems
All Other Systems: ROS reviewed and negative except as documented in HPI and ROS
Constitutional: Reports fatigue; Denies fever or chills
EENT: Reports no symptoms
Respiratory: Reports trouble breathing; Denies cough
Cardiac: Reports no symptoms
ABD/GI: Reports diarrhea and black stools; Denies abdominal pain, nausea, vomiting or anorexia
: Reports no symptoms
Musculoskeletal: Reports no symptoms
Skin: Reports no symptoms
Neurological: Reports other (Tingling in hands bilaterally)
Hematologic/Lymphatic: Reports bruising
Psychiatric: Reports no symptoms
Phy Exam
Physical Exam
Physical Exam:
Physical Exam
General: No apparent distress, alert and appropriate, well nourished, well hydrated
HENT: Normocephalic, supple with no lymphadenopathy, no thyromegaly
Eyes: Clear sclera, conjuctiva without injection
Heart: Regular rhythm and rate. No S3, S4. No murmur. No NVD
Lungs: No respiratory distress, no stridor, lung sounds clear and equal bilaterally, chest wall symmetrical and well-healing sternal incision
Abdomen: Soft, nontender, no organomegaly, no CVA tenderness, BS good. Rectal shows black stool is Hemoccult positive
Neuro: Alert and oriented x 3, CN II - XII intact, no motor focality, no cerebellar dysfunction
Skin: no rash. Ecchymosis on the medial aspect of the right thigh
Psychiatric: well kept. interactive and cooperative
Extremities: No cyanosis, tenderness. +1-2 pitting edema bilaterally of the lower legs
Course
Orders/Labs/Results
Orders:
Orders
03/15/24 15:21
Type+Screen Urgent
Complete Blood Count/With Diff Urgent
Comprehensive Metabolic Panel Urgent
Magnesium Urgent
NT-proBNP Urgent
Comment: ADD ON
TSH Reflex To Free T4 Urgent
Comment: ADD ON
03/15/24 15:34
Add On- LAB Urgent
Tests Added?: BNP, TSH reflex T4, Magnesium
CR Chest - 2 Views Urgent
Comment:
Reason For Exam: sob
03/15/24 16:52
Pantoprazole [Protonix IV] 80 mg IV NOW STA
03/15/24 16:53
Blood Bank Products [* Blood Bank Products] Urgent
Blood Bank Products: *Packed RBC Leuko(PRBC's)
Quantity: 1
Transfuse Today: Yes
Reason: Anemia
03/15/24 16:57
Electrocardiogram (*1) Urgent
Reason for Study: Fatigue / Weakness
EKG- Treatment ONCE
03/15/24 17:00
Pantoprazole 80 mg/100 ml Nss [Protonix] 80 mg in 100 ml IV Q10H
Abnormal Lab Results
03/15/24
15:21
WBC 14.2 H 10^3/uL
(4.8-10.8)
RBC 2.96 L 10^6/uL
(4.70-6.10)
Hgb 8.7 L g/dL
(13.0-18.0)
Hct 26.2 L %
(39.0-52.0)
Plt Count 462 H D 10^3/uL
(130-400)
Abs Immat Gran (auto) 0.1 H 10^3/uL
(0-0.05)
Absolute Neuts (auto) 11.1 H 10^3/uL
(1.4-6.5)
Absolute Monos (auto) 1.1 H 10^3/uL
(0.1-0.6)
Immature Gran % 0.7 H %
(0-0.5)
Neutrophils % 78.5 H %
(42.2-75.2)
Lymphocytes % 9.2 L %
(20.5-51.1)
BUN 36 H mg/dl
(9-20)
Creatinine 1.6 H mg/dL
(0.7-1.3)
Glucose 190 H mg/dl
(70-99)
Calcium 8.0 L mg/dl
(8.4-10.2)
ALT 74 H U/L
(0-50)
Alkaline Phosphatase 152 H U/L
(38-126)
Total Protein 5.4 L g/dl
(6.3-8.2)
Albumin 3.0 L g/dl
(3.5-5.0)
03/15/24 15:21
03/15/24 15:21
Vital Signs
Initial and Last Documented VS:
Initial Vital Signs
Temp Pulse Resp BP Pulse Ox
98.3 F 104 20 127/73 95
03/15/24 14:07 03/15/24 14:07 03/15/24 14:07 03/15/24 14:07 03/15/24 14:07
Last Documented Vital Signs
Temp Pulse Resp BP Pulse Ox
98.3 F 97 20 155/71 95
03/15/24 14:07 03/15/24 15:45 03/15/24 15:45 03/15/24 15:07 03/15/24 15:45
*Radiology
Radiology exam reviewed: radiology read reviewed
*Pulse Oximetry
Patient hypoxic: no
*EKG
Interpreted by ED Provider?: Yes
EKG Intrepretation Date: 03/15/24
EKG Intrepretation Time: 17:11
Interpretation: abnormal
Comparison EKG: no changes
Heart Rate: 98
Rate: normal
Rhythm: sinus and PVC's
[place]: left axis deviation
Interval: normal interval
QRS Pattern: right bundle branch block
Ischemia: non-specific ST changes
*Ruby On Rails Engineer Interpretation
Rate: normal
Interpretation: normal
Heart Rate: 98
Rhythm: sinus, PAC's and PVC's
*Critical Care Note
Total Time (30-74mins, 75-104mins- exclusive of procedures): Not Applicable
ED Attending Note
-
Portions of this chart may have been created with voice recognition software.� Occasional wrong word or��sound alike� substitutions may have occurred due to the inherent limitations of voice recognition software.
Discharge Plan
Departure
Patient Disposition: Admit
Date of Disposition: 03/15/24
Time of Disposition: 17:03
Admit to: Telemetry
Admit to doctor: Hospitalist
Presentation/result/management discussed w/ accepting MD/DO: Hospitalist
Patient with high blood pressure during this ER visit?: No
Condition: Serious
Covid-19: Not Applicable
Discharge Problem:
Symptomatic anemia, Upper gastrointestinal bleed
Prescriptions:
No Action
therapeutic multivitamin Tablet
1 tab PO DAILY
zinc sulfate 50 mg zinc (220 mg) Tablet
50 mg PO DAILY
metformin 1,000 mg Tablet
1,000 mg PO BID
furosemide 40 mg Tablet
40 mg PO BID AT 0800,1600 Qty: 14 0RF
atorvastatin 40 mg Tablet
40 mg PO QPM Qty: 60 1RF
acetaminophen 325 mg Tablet
650 mg PO Q4HPRN PRN (Reason: mild pain,headache,temp >101F ) Qty: 0 0RF
clopidogrel 75 mg Tablet
75 mg PO DAILY Qty: 90 3RF
ferrous sulfate [FeroSul] 325 mg (65 mg iron) Tablet
325 mg PO DAILY Qty: 30 0RF
aspirin 81 mg Tablet,Chewable
81 mg PO DAILY Qty: 0 0RF
metoprolol succinate 25 mg Tablet Extended Release 24 Hr
50 mg PO BID Qty: 60 0RF
insulin glargine [Lantus Solostar U-100 Insulin] 100 unit/mL (3 mL) insulin pen
20 unit SC DAILY Qty: 15 0RF
insulin aspart U-100 100 unit/mL (3 mL) insulin pen
8 unit SC AC 30 Days Qty: 3 0RF
sennosides-docusate sodium 8.6-50 mg Tablet
1 tab PO Q12 Qty: 30 0RF
ascorbic acid (vitamin C) 500 mg Tablet
500 mg PO DAILY Qty: 30 0RF
insulin aspart U-100 100 unit/mL (3 mL) insulin pen
1 sliding scale dose SC DIRECTED Qty: 15 0RF
Rx Instructions:
70-149mg/dL---No Insulin, 150-199mg/dL --- 1 unit, 200-249mg/dL --- 3 unit, 250-299 mg/dL ---5 units
potassium chloride 10 mEq tablet extended release
10 meq PO DAILY Qty: 7 0RF
pantoprazole [Protonix] 40 mg tablet,delayed release (DR/EC)
40 mg PO BID Qty: 30 0RF
Referrals:
Laith Mohamud MD [Family Provider] -
Interventions
Interventions:
*Risk Screen - Suicide Last Done: 03/15/24 15:07
*General Assessment Last Done: 03/15/24 15:07
*Neglect/Abuse Screening Last Done: 03/15/24 15:07
ED- Fall Risk Assessment Last Done: 03/15/24 15:07
*ED COVID-19 Vaccine History Last Done: 03/15/24 15:07
ED- Cardiac Assessment Last Done: 03/15/24 15:07
ED- Neurological Assessment Last Done: 03/15/24 15:07
ED- Pulmonary Assessment Last Done: 03/15/24 15:07
Discharge Date and Time
Print Language: FRISIAN
[2024-03-15] MEDS: PROTONIX IV 80 MG IV (17:00)
[2024-03-15] MEDS: PROTONIX 100 IV (17:00)
[2024-03-15 17:17] LABS: NT-proBNP 16200 pg/ml
[2024-03-15 18:08] LABS: TSH Reflex To Free T4 1.05 uIU/ml (0.47-4.68)
--- NOTE | 2024-03-15 18:10 | HPS.HSE ---
Family Physician
-
Family Physician: Laith Mohamud
Chief Complaint
-
Dyspnea on exertion
History of Present Illness
69-year-old male status post CABG x 4 vessel with clipping of atrial appendage on 03/06/[address] Brandon Perez who complains of generalized weakness with increased shortness of breath and tingling to hands. He reports he has difficulty walking up
stairs due to the shortness of breath. The patient reports soft brown stool with areas of black, he had prior black stools heme positive in the hospital and did have blood transfusion on 03/12/2024 he reports IV infiltration and only received one
half of the 1 unit of PRBCs. He was evaluated by GI during his hospital stay and had his PPI increased to twice daily .His hemoglobin was 8.7 on discharge and is currently 8.6. He denies headache, sore throat, fever, chills, chest pain,
palpitations, abdominal pain, nausea, vomiting, urinary symptoms. His surgery was complicated with an VERONICA with peak creatinine of 3.1 he was seen by nephrology treated with lactated Ringer's. He also required multiple doses of diuretics during his
stay secondary to volume overload. His metformin, Entresto and Farxiga were placed on hold due waiting for resolution of VERONICA. He is past medical history of CAD/CABG x 4 vessel, ischemic cardiomyopathy EF 35%, chronic systolic CHF, blood loss
anemia, RBBB, bifascicular block, VERONICA, HTN, hepatitis C status posttreatment,, hemochromatosis history of prior IV drug abuse, prior alcohol abuse, former smoker, GERD/Dodd's esophagus, DM 2, macular degeneration, melanoma
Medical History
Past Medical History
Past Medical History: Reports Other
Additional Past Medical History:
CAD/CABG x 4 vessel
Ischemic cardiomyopathy EF 35%
Chronic systolic CHF
blood loss anemia
RBBB
bifascicular block
VERONICA post CABG x 4 vessel
Hypertension
DM-II
Obesity
Hepatitis C s/p Harvoni
Hereditary Hemochromatosis
Melanoma
GERD
BPH
Past Surgical History: Reports Other
Additional Past Surgical History:
Cholecystectomy
Melanoma Excision
TURP
Bilateral TKA
Social History
Tobacco: Former Smoker (Quit smoking 30 years ago.)
Alcohol: Former (Sober x 34 years.)
Drug: Other (Remote history of IVDA. Sober x decades.)
Personal: Single
Living: With Family (Cousin)
Family History
Family History: Not pertinent
Allergies / Home Medications
Allergies reflects when Allergies were last updated in [facility].
Home Medications with original date entered in [facility]
Allergy/Medication List:
Allergies
Allergy/AdvReac Type Severity Reaction Status Date / Time
Penicillins Allergy Rash Verified 03/15/24 14:07
Home Medications
metformin 1,000 mg tablet 1,000 mg PO BID Diabetes 02/28/24
therapeutic multivitamin 1 tab PO DAILY Supplement 02/28/24
zinc sulfate 50 mg zinc (220 mg) tablet 50 mg PO DAILY Supplement 02/28/24
acetaminophen 325 mg tablet 650 mg (2 x 325 mg) PO Q4HPRN PRN mild pain,headache,temp >101F #0 tabs 03/12/24
ascorbic acid (vitamin C) 500 mg tablet 500 mg PO DAILY anemia #30 tabs 03/12/24
aspirin 81 mg chewable tablet 81 mg PO DAILY Blood clot prevention/tx #0 tabs 03/12/24
atorvastatin 40 mg tablet 40 mg PO QPM High cholesterol #60 tabs 03/12/24
clopidogrel 75 mg tablet 75 mg PO DAILY graft patentcy #90 tabs 03/12/24
ferrous sulfate 325 mg (65 mg iron) tablet (FeroSul) 325 mg PO DAILY anemia #30 tabs 03/12/24
furosemide 40 mg tablet 40 mg PO BID AT 0800,1600 Fluid retention/Swelling #14 tabs 03/12/24
insulin aspart U-100 100 unit/mL (3 mL) subcutaneous pen 1 sliding scale dose SC DIRECTED Diabetes #15 mL 03/12/24
insulin aspart U-100 100 unit/mL (3 mL) subcutaneous pen 8 unit (0.08 mL) SC AC Diabetes 30 days #3 mL 03/12/24
insulin glargine 100 unit/mL (3 mL) subcutaneous pen (Lantus Solostar U-100 Insulin) 20 unit (0.2 mL) SC DAILY Diabetes #15 mL 03/12/24
metoprolol succinate 25 mg tablet,extended release 24 hr 50 mg (2 x 25 mg) PO BID Blood pressure #60 tabs 03/12/24
potassium chloride 10 mEq tablet,extended release 10 meq PO DAILY Electrolyte Repletion #7 tabs 03/12/24
sennosides 8.6 mg-docusate sodium 50 mg tablet 1 tab PO Q12 constipation while taking iron #30 tabs 03/12/24
pantoprazole 40 mg tablet,delayed release (Protonix) 40 mg PO BID Gi ulcer #30 tabs 03/13/24
Review of Systems
-
History Source: Patient
A 12 point ROS was completed and negative except as noted: Yes
Constitutional: Denies Fever, Fatigue or Chills
EENT: Denies Sore Throat or Runny Nose
Respiratory: Reports Trouble Breathing ([facility]); Denies Cough or Hemoptysis
Cardiac: Denies Chest Pain, Diaphoresis, Palpitations or Syncope
Abdomen/GI: Reports Black Stools (Brown with areas of black); Denies Abdominal Pain, Nausea, Vomiting, Diarrhea, Constipated or Bloody Stools
: Denies Dysuria, Frequency, Flank Pain, Incontinence, Difficulty Voiding, Urgency or Bleeding
Musculoskeletal: Reports Edema (+1 bilateral lower extremities right greater than left); Denies Joint Pain
Skin: Denies Itching or Rash
Neurological: Denies Dizzy, Headache or Weakness
Endocrine: Reports No Symptoms
Hematologic/Lymphatic: Reports No Symptoms
Psych: Reports Calm
Physical Exam
Vital Signs
Vital Signs
Temp Pulse Resp BP Pulse Ox
98.3 F 97 20 155/71 95
03/15/24 14:07 03/15/24 15:45 03/15/24 15:45 03/15/24 15:07 03/15/24 15:45
Physical Exam
General: No Apparent Distress, Comfortable, Conversant and Obese; No Pain, Fever or Chills
HEENT: NormoCephalic, Anicteric, Moist mucous membranes, PERRLA and [place] Conjunctivae
Respiratory: Clear; No Wheezes, Rales or Rhonchi
Cardiac: S1/S2, Regular Rhythm, Peripheral Edema (+1 bilateral lower extremities right greater than left) and Other (Midsternal incision intact with scabbing along incision line, no surrounding erythema or drainage); No Murmur, Rub, Gallop or JVD
Breast: Deferred by me
GI: Soft, Non Tender, Non Distended, Normal Bowel Sounds and No Hepatosplenomegaly
Rectal: Brown (With areas of black)
Genito-urinary: Deferred by me
Musculoskeletal: No Clubbing, No Cyanosis, Edema, Left Lower Extremity (+1 bilateral lower extremities right greater than left), Edema, Right Lower Extremity (+1 bilateral lower extremities right greater than left) and Other (Resolving ecchymosis
right upper thigh status post area of vein grafting); No Edema, Left Upper Extremity or Edema, Right Upper Extremity
Skin: Warm and Dry; No Rash or Jaundice
Neuro: AO x 3, No Motor Deficits, Nonfocal/grossly intact, Cranial Nerves Intact and No Sensory Deficits; No Slurred Speech, Facial Droop, Tremors or Sedated
Psych: Calm
Laboratory Results
-
03/15/24 15:21
03/15/24 15:21
Laboratory Results
Total Bilirubin 0.5 mg/dl (0.2-1.3) 03/15/24 15:21
AST 40 U/L (17-59) 03/15/24 15:21
ALT 74 U/L (0-50) H 03/15/24 15:21
Alkaline Phosphatase 152 U/L (38-126) H 03/15/24 15:21
Impression/Plan
-
Impression/plan:
Admit to telemetry
#Acute dyspnea status post CABG 2/2 Acute Diastolic heart failure
#Hx Chronic systolic CHF
#Hx Ischemic cardiomyopathy
95 % RA
- BNP 16,200 wt 103.8 kg<107 kg
-I/O, daily weights
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
-Consult CBC cardiology
(Metformin, Entresto and Farxiga have been on hold due waiting for resolution of VERONICA)
-Follow CBC, BMP
CXR: Mild cardiomegaly with small bilateral pleural effusions left greater than right no pulm edema. Stable postop changes.
Flattening of the diaphragms suggesting COPD
EKG: Sinus rhythm with PACs 98 bpm, RBBB, QTc 510 MS in setting of RBBB
2D echo 02/28/2024: EF 35% global diffuse hypokinesis mild to moderate LVH no valvular disease
#Chronic anemia/recent blood loss anemia due to recent CABG x 4 vessel
#Anemia with melanotic stools postop CABG on 03/12 received partial 1 unit PRBCs due to IV infiltrate was deemed stable to not reinfuse rest of blood
#History Hemochromatosis HOLD any ORAL IRON per GI causes black stool with confusion of Gi bleed
-Hgb on discharge was 8.7 prior 11.2 on 03/06/2024
Per prior GI consult IV PPI twice daily continue Plavix, aspirin unless drop in hemoglobin was holding on any scoping
-Patient reports stools went from black to currently Brown with some black- He is heme positive in ER
-Patient was ordered 1 unit PRBC by ER physician
-Will stop IV PPI drip and resume patient's Protonix orally 40 mg twice daily
-He will be diuresed with IV Lasix due to acute CHF
-STOP ORAL IRON(-was given IV iron on recent admission instead of Oral iron )
-Follow CBC
#CAD
#S/p CABG x 4 vessel on 03/06/2024 (CALDWELL�diagonal/LAD, ao�SVG�PDA, SVG�SVG�OM 3) & #45 SHEREEN clip
-Vein graft from right leg
-Continue atorvastatin 40 mg every afternoon, Plavix 75 mg daily, aspirin 81 mg daily, metoprolol succinate 50 mg twice daily
# Acute on chronic VERONICA status post CABG
03/08/2024 creatinine was max 3.1 from baseline of 1.2 was seen by nephro treated with lactated Ringer's
-Creat 1.6 <1.8 on 03/13/2024
-Follow BMP
#Leukocytosis likely 2/2 recent CABG x 4 vessel
WBC 14.2, afebrile 98.3F, normotensive 155/71
-Follow CBC monitor for any temperature
#Chronic bifascicular block
#Chronic RBBB
#GERD/Dodd's esophagus
-Continue Protonix 40 mg twice daily
#HTN�benign
BP 155/71, continue metoprolol succinate 50 mg twice daily
#DM 2
BS 190
Accu-Cheks with SSI
-Continue Lantus 20 units subcu daily, insulin aspart 8 units subcu with meals
-Metformin on hold due to VERONICA
#Hx Hepatitis C status post treatment
#Former IVDA in the past
#BPH
-No reported meds
Other PMH:
Prior alcohol abuse
Prior nicotine abuse
Macular degeneration
Melanoma hx
DVT prophylaxis
SCDs
Full code
--- NOTE | 2024-03-15 19:02 | W.PN.UPDATE ---
Update Note
Progress Note Update
This is an addendum to H&P written by Breana Dong on 03/15/2024. Patient seen and examined independently with [employer]NAGER [employer].
69-year-old male history of CAD status post CABG on 03/06 with postop blood loss anemia, HFrEF, ischemic cardiomyopathy, hypertension, type 2 diabetes, obesity, hepatitis C status post treatment, hemochromatosis, presenting with shortness of breath,
increased lower extremity edema.
Hemoglobin 8.7 which is stable although hemoglobin was 11.2 on 03/06. Chest x-ray shows bilateral [place] [address] with significant increase from 2600. Presentation more consistent with acute CHF exacerbation rather than
symptomatic anemia.
1 unit of blood ordered by ER. 40 IV Lasix twice daily. Cardiology consulted. GI recommended during last admission tonics 40 twice daily and to continue aspirin and Plavix unless significant drop in hemoglobin. Stop oral iron due to
hemochromatosis.
[2024-03-15] MEDS: TOPROL XL 50 MG PO (23:10)
[2024-03-15] MEDS: PROTONIX 40 MG PO (23:10)
[2024-03-15] MEDS: SENOKOT-S 1 TABLET PO (23:50)
[2024-03-16] VITALS (15 sets, daily range): BP systolic 110–170; BP diastolic 68–88; PULSE 92–96; O2SAT 96; BMI 35.2
[2024-03-16 06:23] LABS: % Basophils 0.6 % (0-2); % Eosinophils 4.4 % (0-6); % Immature Granulocytes 0.6 % (0-0.5); % Monocytes 7.5 % (1.7-9.3); % Neutrophils 76.9 % (42.2-75.2); Absolute Basophils 0.1 10^3/uL (0-0.2); Absolute Eosinophils 0.6 10^3/uL (0-0.7); Absolute Immature Granulocytes 0.1 10^3/uL (0-0.05); Absolute Lymphocytes 1.5 10^3/uL (1.2-3.4); Absolute Monocytes 1.1 10^3/uL (0.1-0.6); Absolute Neutrophils 11.2 10^3/uL (1.4-6.5); Hematocrit 27.8 % (39.0-52.0); Hemoglobin 9.3 g/dL (13.0-18.0); Mean Corp Hgb Conc. 33.5 g/dL (33.0-37.0); Mean Corpuscular Hgb 30.5 pg (27.0-31.0); Mean Corpuscular Volume 91.1 fL (80.0-94.0); Mean Platelet Volume 9.3 fL (7.4-10.4); Nucleated Red Blood Cells % 0 % (-); Platelet Count 433 10^3/uL (130-400); Red Blood Cell Count 3.05 10^6/uL (4.70-6.10); Red Cell Dist. Width 14.2 % (11.5-14.5); White Blood Cell Count 14.5 10^3/uL (4.8-10.8)
[2024-03-16 07:10] LABS: ALT (SGPT) 59 U/L (0-50); AST (SGOT) 26 U/L (17-59); Albumin 2.9 g/dl (3.5-5.0); Alkaline Phosphatase 125 U/L (38-126); Blood Urea Nitrogen 28 mg/dl (9-20); Calcium 8.2 mg/dl (8.4-10.2); Carbon Dioxide 26 mmol/L (22-30); Chloride 110 mmol/L (98-107); Estimated Creatinine Clearance 57 ml/min; Glucose 124 mg/dl (70-99); Potassium 4.5 mmol/L (3.5-5.1); Sodium 146 mmol/L (135-145); Total Bilirubin 1.1 mg/dl (0.2-1.3); Total Protein 5.3 g/dl (6.3-8.2); eGFR 54.07
--- NOTE | 2024-03-16 08:18 | CON.CAR ---
Addendum entered and electronically signed by Tung Au MD 03/16/24 12:47:
.
6o-year-old male with a history of coronary artery bypass grafting in left atrial appendage clip 03/06/2024. Preoperatively patient noted to have ischemic cardiomyopathy with ejection fraction of 35% postoperative course notable for VERONICA and anemia
with heme positive stools. Past history also notable for history of malignant melanoma, hepatitis C, hemochromatosis, right bundle branch block, GERD, Dodd's esophagus diabetes patient presented with fatigue weakness exertional shortness of
breath admitted to hospital service with anemia 7.6 also suspected to have component of CHF and chest x-ray notable for left pleural effusion. Patient feels significantly better after ministration of PRBCs as well as administration of diuretic.
Currently comfortable on room air. Lungs are clear on exam midsternal incision appears well-healed. He has got some residual lower extremity edema and is wearing compression stockings.
-Fatigue/weakness and shortness of breath. Improved after administration of PRBCs and diuretic.
-Anemia. Improvement after administration of PRBCs. Previously noted to have heme positive stools. Continue to monitor hemoglobin. Additional management directed by primary team
-Continue current dosing of diuretic and monitor renal function closely
-Echocardiogram to reassess left ventricular function
-Patient with bilateral pleural effusions left greater than right. We will see if this continues to improve with diuretic therapy
-Continue to optimize GDMT in this patient with cardiomyopathy. Currently limited due to renal insufficiency but as creatinine improves if blood pressure remains stable then we may be able to add ARB or ARNI, and
spironolactone etc.
Original Note:
Consultation
Consultation Request
Date/Time Consultation Requested: 03/15/241909
Date/Time Consultation Performed: 03/16/24814
Requesting Provider: Breana Degroot NP
Performing Provider: Ciara JUÁREZ for Dr. Au
Reason for Consultation: CHF
Medical History
-
Chief Complaint: SOB
History of Present Illness:
69 y/o male with hypertension, PVC's, malignant melanoma s/p excision, hepatitis C (s/p Harvoni), hemochromatosis, RBBB, GERD/Dodd's esophagus, dyslipidemia, DM, and obesity who was recently hospitalized and found to have an ICM (EF 35%) and
multivessel coronary artery disease and is s/p CABG and SHEREEN clip (03/06/24) with post-op VERONICA and anemia with heme + stool and who was discharged on 03/13/24 and is now back for [facility], weakness, light-headedness, and LE edema. CXR and BNP suggestive of
CHF and he is s/p IV lasix and is feeling improved. Additionally, he was given PRBC's. He is in no distress at the time of my assessment.
Past Medical History
Past Medical History: Arrhythmias, CAD, Cancer, CHF, GERD, HTN, Hypercholesterolemia and NIDDM
Social History
Tobacco: Former Smoker
Alcohol: Former
Drug: Former User
Family History
Family History: Reviewed & Not Pertinent
Allergies / Home Medications
Allergy/AdvReac Type Severity Reaction Status Date / Time
Penicillins Allergy Rash Verified 03/15/24 14:07
�Medication �Instructions �Recorded �Confirmed �Type
metformin 1,000 mg tablet 1,000 mg PO BID Diabetes 02/28/24 03/15/24 History
therapeutic multivitamin 1 tab PO DAILY Supplement 02/28/24 03/15/24 History
zinc sulfate 50 mg zinc (220 mg) 50 mg PO DAILY Supplement 02/28/24 03/15/24 History
tablet
acetaminophen 325 mg tablet 650 mg (2 x 325 mg) PO Q4HPRN PRN 03/12/24 03/15/24 Rx
mild pain,headache,temp >101F #0
tabs
ascorbic acid (vitamin C) 500 mg 500 mg PO DAILY anemia #30 tabs 03/12/24 03/15/24 Rx
tablet
aspirin 81 mg chewable tablet 81 mg PO DAILY Blood clot 03/12/24 03/15/24 Rx
prevention/tx #0 tabs
atorvastatin 40 mg tablet 40 mg PO QPM High cholesterol #60 10/06/24 10/09/24 Rx
tabs
clopidogrel 75 mg tablet 75 mg PO DAILY graft patentcy #90 03/12/24 03/15/24 Rx
tabs
ferrous sulfate 325 mg (65 mg 325 mg PO DAILY anemia #30 tabs 03/12/24 03/15/24 Rx
iron) tablet (FeroSul)
furosemide 40 mg tablet 40 mg PO BID AT 0800,1600 Fluid 03/12/24 03/15/24 Rx
retention/Swelling #14 tabs
insulin aspart U-100 100 unit/mL 1 sliding scale dose SC 03/12/24 03/15/24 Rx
(3 mL) subcutaneous pen DIRECTED Diabetes #15 mL
insulin aspart U-100 100 unit/mL 8 unit (0.08 mL) SC AC Diabetes 30 03/12/24 03/15/24 Rx
(3 mL) subcutaneous pen days #3 mL
insulin glargine 100 unit/mL (3 20 unit (0.2 mL) SC DAILY Diabetes 03/12/24 03/15/24 Rx
mL) subcutaneous pen (Lantus #15 mL
Solostar U-100 Insulin)
metoprolol succinate 25 mg 50 mg (2 x 25 mg) PO BID Blood 03/12/24 03/15/24 Rx
tablet,extended release 24 hr pressure #60 tabs
potassium chloride 10 mEq 10 meq PO DAILY Electrolyte 03/12/24 03/15/24 Rx
tablet,extended release Repletion #7 tabs
sennosides 8.6 mg-docusate sodium 1 tab PO Q12 constipation while 03/12/24 03/15/24 Rx
50 mg tablet taking iron #30 tabs
pantoprazole 40 mg tablet,delayed 40 mg PO BID Gi ulcer #30 tabs 03/13/24 03/15/24 Rx
release (Protonix)
Review of Systems
-
History Source: Patient
All other systems: Negative unless noted
Respiratory: Trouble Breathing
Musculoskeletal: Edema
Neurological: Weakness and Other (light-headedness)
Physical Exam
Vital Signs
Temp Pulse Resp BP Pulse Ox
98.3 F 93 22 149/77 94
03/15/24 23:47 03/16/24 04:00 03/16/24 04:00 03/16/24 04:00 03/16/24 04:00
Lab Results
03/16/24 06:11
03/16/24 06:11
Yjr-[id number]-Htbpnlsdhuu Pept 80702 pg/ml 03/15/24 15:21
Physical Exam
General: Well Developed, Well Nourished and No Apparent Distress
HEENT: Normocephalic and Anicteric
Respiratory: Crackles (b/l bases)
Cardiac: Regular Rhythm
Musculoskeletal: Edema (mild BLE edema)
Skin: Warm and Dry
Neuro: AO x 3
Psych: Calm
Impression / Plan
-
Brgok-at-axsohic HFrEF:
-agree with IV diuresis, which requires intensive monitoring
-SGLT2/Entresto cost prohibitive per previous notes
-continue metoprolol
-plan for ACEI/ARB when creatinine normalizes and consider MRA as well
-CHF education
VERONICA:
-noted last admit and is approving
CAD:
-S/P CABG x 4 (Sequential CALDWELL to diagonal to LAD, SVG to PDA, SVG Y-graft off of SVG to OM3) & #[address] Gibbs 03/06/2024
-on ASA, plavix, statin, and BB
-no CP
Anemia:
-now s/p PRBC
-on PPI
Data Reviewed
-
EKG: Tracing Personally Visualized and interpreted (SR with PVC's, RBBB)
Radiology: Report Reviewed by me (CXR: Mild cardiomegaly with small bilateral pleural effusions, larger on the left than the right, but no pulmonary edema Stable postoperative changes Flattening of the diaphragms suggesting chronic obstructive
pulmonary disease)
Medical Tests (Nuc Med, Echo etc): Report Reviewed by me (echo 02/28/24: Normal LV size with moderately reduced systolic function. Estimated ejection fraction of 35%. Global diffuse hypokinesis. Mild to moderate LVH. Normal right ventricular
size and function. No significant valvular disease. )
Labs: Labs Reviewed by me
[2024-03-16] MEDS: ZINC 50 MG PO (08:34)
[2024-03-16] MEDS: THERAGRAN 1 TABLET PO (08:35)
[2024-03-16] MEDS: LOW STRENGTH ASPIRIN 81 MG PO (08:35)
[2024-03-16] MEDS: SENOKOT-S 1 TABLET PO ×2 (08:35→20:04)
[2024-03-16] MEDS: PROTONIX 40 MG PO ×2 (08:35→20:03)
[2024-03-16] MEDS: VITAMIN C 500 MG PO (08:35)
[2024-03-16] MEDS: TOPROL XL 50 MG PO ×2 (08:35→20:03)
[2024-03-16] MEDS: PLAVIX 75 MG PO (08:36)
[2024-03-16] MEDS: KCL 10 MEQ PO (08:36)
[2024-03-16 08:41] LABS: Glucose - Point of Care 120 mg/dl (70-99)
[2024-03-16] MEDS: LASIX 40 MG IV ×2 (08:43→17:17)
[2024-03-16] MEDS: NOVOLOG FLEXPEN 8 UNITS SC ×3 (09:52→17:19)
[2024-03-16] MEDS: LANTUS 0.2 UNITS SC (09:53)
--- NOTE | 2024-03-16 11:22 | CARDSERVLU ---
Echocardiogram with [facility] completed after protocol screening completed. Allergies verified.
Patent IV site: _Right antecubital site clear (ED patient)____
IV site flushed with 0.9% NaCl pre and post administration.
Diluted bolus method utilized to enhance visualization of ventricular marie.
Total volume given: _4___ mL
Patient tolerated all procedures well without complications.
--- NOTE | 2024-03-16 12:15 | PTCARENOTE ---
03/16- Patient transferred and oriented to unit without issue. AAOX3; Telemetry currently NSR. Patient denies any current needs.
[2024-03-16 12:53] LABS: Glucose - Point of Care 169 mg/dl (70-99)
--- NOTE | 2024-03-16 15:08 | W.PN.HOSP.TC ---
Today's Communication/Plan
-
continue to monitor Scr, HgB with diuresis
Assessment / Plan
Assessment / Plan
Physical Exam
General: Well Developed, Well Nourished and No Apparent Distress
HEENT: Normocephalic and Anicteric
Respiratory: Crackles (b/l bases)
Cardiac: Regular Rhythm
Musculoskeletal: Edema (mild BLE edema)
Skin: Warm and Dry
Neuro: AO x 3
Psych: Calm
#Acute on Chronic HFpEF
Acute dyspnea status post CABG 2/2 Acute Diastolic heart failure
#Hx Chronic systolic CHF
#Hx Ischemic cardiomyopathy
-I/O, daily weights
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
-SGLT2i/Entresto cost prohibitive
-Continue BB
-Plan for ACEI/ARb when creatine normalizes
-ED 35-40%
#Chronic anemia/recent blood loss anemia due to recent CABG x 4 vessel
#Anemia with melanotic stools postop CABG on 03/12 received partial 1 unit PRBCs due to IV infiltrate was deemed stable to not reinfuse rest of blood
#History Hemochromatosis HOLD any ORAL IRON per GI causes black stool with confusion of Gi bleed
-IV PPI twice daily, and as per GI - ok to continue Plavix, aspirin unless drop in hemoglobin ]
-Patient reports stools went from black to currently Brown with some black
-Patient was ordered 1 unit PRBC by ER physician
switch back to PPI BID
-Anemia may be related to volume overload
-monitor hgb with diuresis
#Hypernatremia
-monitor with diuresis
#CAD
#S/p CABG x 4 vessel on 03/06/2024 (CALDWELL�diagonal/LAD, ao�SVG�PDA, SVG�SVG�OM 3) & #45 SHEREEN clip
-Vein graft from right leg
-Continue atorvastatin 40 mg every afternoon, Plavix 75 mg daily, aspirin 81 mg daily, metoprolol succinate 50 mg twice daily
# Acute on chronic VERONICA
-most likely cardio-renal
-monitor with diuresis
#Leukocytosis likely 2/2 recent CABG x 4 vessel
WBC 14.2, afebrile 98.3F, normotensive 155/71
-monitor cbc, fever curve
#Transaminitis
-monitor
-improving
#Chronic bifascicular block
#Chronic RBBB
#GERD/Dodd's esophagus
-Continue Protonix 40 mg twice daily
#HTN�benign
continue metoprolol succinate 50 mg twice daily
#DM 2
BS 190
Accu-Cheks with SSI
-Continue Lantus 20 units subcu daily, insulin aspart 8 units subcu with meals
-Metformin on hold due to VERONICA
#Hx Hepatitis C status post treatment
#Former IVDA in the past
#BPH
-No reported meds
Other PMH:
Prior alcohol abuse
Prior nicotine abuse
Macular degeneration
Melanoma hx
DVT prophylaxis
SCDs
Full code
Total time spent on today's encounter was 50 minutes which included time spent in counseling the patient/family regarding diagnosis and treatment plan as listed above, goals of care, and symptom management. Case was discussed with nursing staff,
specialists, and care coordinators/case management. All labs and imaging personally reviewed by me. Remainder the time spent in detailed review of previous records, lab data, imaging, and other medical provider documentation.
Anticipated Discharge: > 48 hours
Subjective/Interval History
-
Date of Service: March 16, 2024
symptoms improved
Objective Data
-
Labs:
Laboratory Results
03/16/24
06:11
WBC 14.5 H
Hgb 9.3 L
Hct 27.8 L
Plt Count 433 H
Sodium 146 H
Potassium 4.5
Chloride 110 H
Carbon Dioxide 26
BUN 28 H
Creatinine 1.4 H
Glucose 124 H
Calcium 8.2 L
Total Bilirubin 1.1
AST 26
ALT 59 H
Alkaline Phosphatase 125
Vital Signs:
Vital Signs
Temp Pulse Resp BP Pulse Ox
98.7 F 102 24 145/77 97
03/16/24 12:11 03/16/24 12:11 03/16/24 12:11 03/16/24 12:11 03/16/24 12:15
I&O
03/15/24 03/16/24 03/17/24
06:59 06:59 06:59
Intake Total 250 / 250 240 / 240
Output Total 550 / 550 375 / 375
Balance -300 / -300 -135 / -135
Review of Systems
-
History Source: Patient
All other systems: Not reviewed unless documented
Data Reviewed
-
Diagnostic Radiology: Image personally visualized and interpreted and Report Reviewed by me
Labs: Labs Reviewed by me
[2024-03-16 17:16] LABS: Glucose - Point of Care 135 mg/dl (70-99)
[2024-03-16] MEDS: LIPITOR 40 MG PO (17:18)
[2024-03-16 22:13] LABS: Glucose - Point of Care 160 mg/dl (70-99)
[2024-03-17 03:54] VITALS: BP 148/76
[2024-03-17 07:03] LABS: % Basophils 0.5 % (0-2); % Immature Granulocytes 0.5 % (0-0.5); % Lymphocytes 10.7 % (20.5-51.1); % Monocytes 7.5 % (1.7-9.3); % Neutrophils 75.8 % (42.2-75.2); Absolute Basophils 0.1 10^3/uL (0-0.2); Absolute Eosinophils 0.8 10^3/uL (0-0.7); Absolute Immature Granulocytes 0.1 10^3/uL (0-0.05); Absolute Lymphocytes 1.6 10^3/uL (1.2-3.4); Absolute Monocytes 1.1 10^3/uL (0.1-0.6); Absolute Neutrophils 11.5 10^3/uL (1.4-6.5); Hematocrit 30.2 % (39.0-52.0); Hemoglobin 9.8 g/dL (13.0-18.0); Mean Corp Hgb Conc. 32.5 g/dL (33.0-37.0); Mean Corpuscular Hgb 29.9 pg (27.0-31.0); Mean Corpuscular Volume 92.1 fL (80.0-94.0); Mean Platelet Volume 9.4 fL (7.4-10.4); Nucleated Red Blood Cells % 0 % (-); Platelet Count 460 10^3/uL (130-400); Red Blood Cell Count 3.28 10^6/uL (4.70-6.10); Red Cell Dist. Width 14.1 % (11.5-14.5); White Blood Cell Count 15.2 10^3/uL (4.8-10.8)
[2024-03-17 07:23] LABS: ALT (SGPT) 49 U/L (0-50); AST (SGOT) 22 U/L (17-59); Alkaline Phosphatase 119 U/L (38-126); Blood Urea Nitrogen 25 mg/dl (9-20); Calcium 8.2 mg/dl (8.4-10.2); Carbon Dioxide 26 mmol/L (22-30); Chloride 109 mmol/L (98-107); Estimated Creatinine Clearance 54 ml/min; Glucose 96 mg/dl (70-99); Sodium 148 mmol/L (135-145); Total Bilirubin 0.7 mg/dl (0.2-1.3); Total Protein 5.3 g/dl (6.3-8.2); eGFR 49.77
[2024-03-17 07:26] LABS: Glucose - Point of Care 96 mg/dl (70-99)
[2024-03-17] MEDS: NOVOLOG FLEXPEN 8 UNITS SC ×3 (07:26→16:46)
[2024-03-17] MEDS: LANTUS 0.2 UNITS SC (07:26)
[2024-03-17] MEDS: ZINC 50 MG PO (07:27)
[2024-03-17] MEDS: PROTONIX 40 MG PO ×2 (07:27→19:14)
[2024-03-17] MEDS: LOW STRENGTH ASPIRIN 81 MG PO (07:28)
[2024-03-17] MEDS: PLAVIX 75 MG PO (07:28)
[2024-03-17] MEDS: TOPROL XL 50 MG PO ×2 (07:28→19:14)
[2024-03-17] MEDS: THERAGRAN 1 TABLET PO (07:28)
[2024-03-17] MEDS: SENOKOT-S 1 TABLET PO ×2 (07:29→19:14)
[2024-03-17] MEDS: LASIX 40 MG IV (07:29)
[2024-03-17] MEDS: KCL 10 MEQ PO (07:29)
[2024-03-17] MEDS: VITAMIN C 500 MG PO (07:29)
[2024-03-17 07:30] VITALS: BP 155/84
--- NOTE | 2024-03-17 09:28 | W.PN.CD ---
Today's Communication / Plan
-
Transition to home p.o. Lasix 40 mg twice daily
Can be discharged from a cardiovascular perspective but will defer to primary team
Impression / Plan
-
69-year-old male with a history of coronary artery bypass grafting in left atrial appendage clip 03/06/2024. Preoperatively patient noted to have ischemic cardiomyopathy with ejection fraction of 35% postoperative course notable for VEROINCA and anemia
with heme positive stools now status posttransfusion with stable hemoglobin.
Juuog-mk-ehxelej HFrEF:
-Can transition to home Lasix 40 mg twice daily p.o. Patient appears euvolemic.
-SGLT2/Entresto cost prohibitive per previous notes
-continue metoprolol
-plan for ACEI/ARB when creatinine normalizes and consider MRA as well
-CHF education
VERONICA:
-noted last admit and is approving
CAD:
-S/P CABG x 4 (Sequential CALDWELL to diagonal to LAD, SVG to PDA, SVG Y-graft off of SVG to OM3) & #[address] Gibbs 03/06/2024
-on ASA, plavix, statin, and BB
-no CP
Anemia:
-now s/p PRBC
-on PPI
Subjective: Patient feels well. Asking when he can go home. Coloring has improved. Breathing and lower extremity edema are at his baseline. Telemetry shows intermittent short runs of SVT.
Physical Exam
Vital Signs/Labs
Vital Signs
Temp Pulse Resp BP Pulse Ox
98.4 F 96 20 155/84 97
03/17/24 07:30 03/17/24 07:30 03/17/24 07:30 03/17/24 07:30 03/17/24 07:30
03/16/24 03/17/24 03/18/24
06:59 06:59 06:59
Actual Weight 103.8 kg 105.007 kg
03/17/24 06:10
03/17/24 06:10
Magnesium 2.2 mg/dl (1.6-2.3) 03/15/24 15:21
03/15/24
15:21
Oqu-U-Fccetqrooxc Pept 66064
Physical Exam
Constitutional: No acute distress and Comfortable
Cardiovascular: Rhythm & rate is regular, Pedal edema is absent (Trace nonpitting edema bilaterally), JVD pressure is normal and Murmur/rub/gallop absent
Respiratory: Respiratory effort normal and Crackles Present (Crackles at bases bilateral)
Data Reviewed
-
Date of Service: March 17, 2024
Medical Decision Making: Reviewed Test Results, Independent Historian Assessment, Test Interpretation and Review of Case with other Provider
EKG: Tracing Personally Visualized and interpreted
Echo: Report Reviewed by me
X-Ray/CT/US/MRI/NUC/PET: Image Personally Visualized and interpreted
Labs: Labs Reviewed by me
Total Time Spent with Patient (in minutes): 35
--- NOTE | 2024-03-17 10:37 | PN.CDI ---
CDI
- -
CDI:
Physician Documentation Request
Admit Date: 03/15/24 19:56
Dear Doctor Clarisa,
Please review the following and provide your response in the progress notes.
Clinical Indicators:
- 03/17 Cardiology 'Bppuf-ir-dwnjvkm HFrEF'
- 03/16 PN 'Acute on Chronic HFpEF'
- 03/16 Echo EF 35-40%
In an attempt to clarify potentially conflicting documentation, please clarify the type of CHF:
Acute on chronic HFrEF
Acute on chronic HFpEF
Other (please specify)
Use of terms such as suspected, likely, concern for, or probable (associated with a specific diagnosis that is being evaluated, monitored, or treated as if it exists) are acceptable and can be coded in the inpatient setting, when documented at the
time of discharge.
Thank you,
Chase Troy RN
CDI Specialist
Please use your independent medical judgment in providing your response.
--- NOTE | 2024-03-17 10:50 | CM ---
CM reviewed chart, met with patient and multiple visitors bedside. Patient resides with his cousin in a split level home, four steps to enter, 10 steps to bedroom. Patient denies use of DME. Patient denies SNF history. Patient confirms PCP Laith
Cade, pharmacy [facility], confirms prescription coverage. Patient denies insecurities at home. Per PT, no skilled need. CM will continue to follow for all discharge planning needs.
Plan; home no needs, when stable.
[2024-03-17 11:35] LABS: Glucose - Point of Care 73 mg/dl (70-99)
[2024-03-17 11:57] VITALS: BP 162/78
[2024-03-17 14:22] LABS: Glucose - Point of Care 124 mg/dl (70-99)
--- NOTE | 2024-03-17 14:51 | W.PN.HOSP.TC ---
Today's Communication/Plan
-
monitor Na with PO lasix
Assessment / Plan
Assessment / Plan
Physical Exam
General: Well Developed, Well Nourished and No Apparent Distress
HEENT: Normocephalic and Anicteric
Respiratory: CTAB
Cardiac: Regular Rhythm
Musculoskeletal: Edema (mild BLE edema)
Skin: Warm and Dry
Neuro: AO x 3
Psych: Calm
#Acute on Chronic HFpEF
Acute dyspnea status post CABG 2/2 Acute Diastolic heart failure
#Hx Chronic systolic CHF
#Hx Ischemic cardiomyopathy
-I/O, daily weights
Transition to home p.o. Lasix 40 mg twice daily
-SGLT2i/Entresto cost prohibitive
-Continue BB
-Plan for ACEI/ARb when creatine normalizes
-ED 35-40%
#Chronic anemia/recent blood loss anemia due to recent CABG x 4 vessel
#Anemia with melanotic stools postop CABG on 03/12 received partial 1 unit PRBCs due to IV infiltrate was deemed stable to not reinfuse rest of blood
#History Hemochromatosis HOLD any ORAL IRON per GI causes black stool with confusion of Gi bleed
-IV PPI twice daily, and as per GI - ok to continue Plavix, aspirin unless drop in hemoglobin ]
-Patient reports stools went from black to currently Brown with some black
-Patient was ordered 1 unit PRBC by ER physician
switch back to PPI BID
-Anemia may be related to volume overload
-monitor hgb with diuresis
#Hypernatremia
-monitor with diuresis
-now that back on PO - anticipate will improve
-f/u bmp ubaldo
#CAD
#S/p CABG x 4 vessel on 03/06/2024 (CALDWELL�diagonal/LAD, ao�SVG�PDA, SVG�SVG�OM 3) & #45 SHEREEN clip
-Vein graft from right leg
-Continue atorvastatin 40 mg every afternoon, Plavix 75 mg daily, aspirin 81 mg daily, metoprolol succinate 50 mg twice daily
# Acute on chronic VERONICA
-most likely cardio-renal
-monitor with diuresis
-improving
#Leukocytosis likely 2/2 recent CABG x 4 vessel
WBC 14.2, afebrile 98.3F, normotensive 155/71
-monitor cbc, fever curve
#Transaminitis
-monitor
-improving
#Chronic bifascicular block
#Chronic RBBB
#GERD/Dodd's esophagus
-Continue Protonix 40 mg twice daily
#HTN�benign
continue metoprolol succinate 50 mg twice daily
#DM 2
BS 190
Accu-Cheks with SSI
-Continue Lantus 20 units subcu daily, insulin aspart 8 units subcu with meals
-Metformin on hold due to VERONICA
#Hx Hepatitis C status post treatment
#Former IVDA in the past
#BPH
-No reported meds
Other PMH:
Prior alcohol abuse
Prior nicotine abuse
Macular degeneration
Melanoma hx
DVT prophylaxis
SCDs
Full code
Anticipated Discharge: Within 24 hours
Subjective/Interval History
-
Date of Service: March 17, 2024
Resp status greatly improved
Objective Data
-
Labs:
Laboratory Results
03/17/24
06:10
WBC 15.2 H
Hgb 9.8 L
Hct 30.2 L
Plt Count 460 H
Sodium 148 H
Potassium 4.0
Chloride 109 H
Carbon Dioxide 26
BUN 25 H
Creatinine 1.5 H
Glucose 96
Calcium 8.2 L
Total Bilirubin 0.7
AST 22
ALT 49
Alkaline Phosphatase 119
Vital Signs:
Vital Signs
Temp Pulse Resp BP Pulse Ox
98.0 F 98 20 162/78 94
03/17/24 11:57 03/17/24 11:57 03/17/24 11:57 03/17/24 11:57 03/17/24 11:57
I&O
03/16/24 03/17/24 03/18/24
06:59 06:59 06:59
Intake Total 250 / 250 460 / 460
Output Total 550 / 550 875 / 875
Balance -300 / -300 -415 / -415
Review of Systems
-
History Source: Patient
All other systems: Not reviewed unless documented
Data Reviewed
-
Diagnostic Radiology: Image personally visualized and interpreted and Report Reviewed by me
Labs: Labs Reviewed by me
[2024-03-17 15:58] VITALS: BP 124/75
[2024-03-17 16:44] LABS: Glucose - Point of Care 100 mg/dl (70-99)
[2024-03-17] MEDS: LASIX 40 MG PO (16:45)
[2024-03-17] MEDS: LIPITOR 40 MG PO (16:45)
[2024-03-17 19:10] VITALS: BP 125/74
[2024-03-17 22:17] LABS: Glucose - Point of Care 94 mg/dl (70-99)
[2024-03-17 23:00] VITALS: BP 140/77
[2024-03-18 06:00] VITALS: BMI 34.8
[2024-03-18 06:07] LABS: % Basophils 0.6 % (0-2); % Eosinophils 4.6 % (0-6); % Immature Granulocytes 0.7 % (0-0.5); % Lymphocytes 11.2 % (20.5-51.1); % Monocytes 6.3 % (1.7-9.3); % Neutrophils 76.6 % (42.2-75.2); Absolute Basophils 0.1 10^3/uL (0-0.2); Absolute Eosinophils 0.8 10^3/uL (0-0.7); Absolute Immature Granulocytes 0.1 10^3/uL (0-0.05); Absolute Lymphocytes 1.8 10^3/uL (1.2-3.4); Absolute Neutrophils 12.4 10^3/uL (1.4-6.5); Hematocrit 34.1 % (39.0-52.0); Mean Corp Hgb Conc. 32.3 g/dL (33.0-37.0); Mean Corpuscular Hgb 28.9 pg (27.0-31.0); Mean Corpuscular Volume 89.7 fL (80.0-94.0); Mean Platelet Volume 9.3 fL (7.4-10.4); Nucleated Red Blood Cells % 0 % (-); Platelet Count 483 10^3/uL (130-400); Red Cell Dist. Width 14.2 % (11.5-14.5); White Blood Cell Count 16.2 10^3/uL (4.8-10.8)
[2024-03-18 06:33] LABS: ALT (SGPT) 45 U/L (0-50); AST (SGOT) 22 U/L (17-59); Albumin 3.3 g/dl (3.5-5.0); Alkaline Phosphatase 115 U/L (38-126); Blood Urea Nitrogen 29 mg/dl (9-20); Calcium 8.6 mg/dl (8.4-10.2); Carbon Dioxide 25 mmol/L (22-30); Chloride 107 mmol/L (98-107); Estimated Creatinine Clearance 53 ml/min; Glucose 94 mg/dl (70-99); Potassium 4.2 mmol/L (3.5-5.1); Sodium 145 mmol/L (135-145); Total Bilirubin 0.7 mg/dl (0.2-1.3); Total Protein 5.8 g/dl (6.3-8.2); eGFR 49.77
[2024-03-18 07:00] VITALS: BP 174/83
[2024-03-18 07:53] LABS: Glucose - Point of Care 96 mg/dl (70-99)
[2024-03-18] MEDS: LANTUS 0.2 UNITS SC (08:36)
[2024-03-18] MEDS: PLAVIX 75 MG PO (08:36)
[2024-03-18] MEDS: NOVOLOG FLEXPEN 8 UNITS SC ×2 (08:36→12:15)
[2024-03-18] MEDS: PROTONIX 40 MG PO (08:37)
[2024-03-18] MEDS: LASIX 40 MG PO (08:37)
[2024-03-18] MEDS: SENOKOT-S 1 TABLET PO (08:37)
[2024-03-18] MEDS: THERAGRAN 1 TABLET PO (08:37)
[2024-03-18] MEDS: TOPROL XL 50 MG PO (08:37)
[2024-03-18] MEDS: LOW STRENGTH ASPIRIN 81 MG PO (08:37)
[2024-03-18] MEDS: ZINC 50 MG PO (08:37)
[2024-03-18] MEDS: VITAMIN C 500 MG PO (08:37)
[2024-03-18] MEDS: KCL 10 MEQ PO (08:37)
--- NOTE | 2024-03-18 10:58 | CM ---
Home no needs.
Plan; Home no needs.
[2024-03-18 11:00] VITALS: BP 163/71
--- NOTE | 2024-03-18 11:44 | W.PN.HOSP.TC ---
Addendum entered and electronically signed by Case Mckenna MD 03/19/24 17:11:
[id number]
Addendum entered and electronically signed by Case Mckenna MD 03/19/24 16:20:
Acute on chronic HFrEF
Original Note:
Today's Communication/Plan
-
resume po lasix
f/u bmp in 3-5 days
f/u cbc monitoring WBC, HGb
F/u PCP, Cards, Gi outpatient
Assessment / Plan
Assessment / Plan
Physical Exam
General: Well Developed, Well Nourished and No Apparent Distress
HEENT: Normocephalic and Anicteric
Respiratory: CTAB
Cardiac: Regular Rhythm
Musculoskeletal: Edema (mild BLE edema)
Skin: Warm and Dry
Neuro: AO x 3
Psych: Calm
#Acute on Chronic HFpEF
Acute dyspnea status post CABG 2/2 Acute Diastolic heart failure
#Hx Chronic systolic CHF
#Hx Ischemic cardiomyopathy
-I/O, daily weights
Transition to home p.o. Lasix 40 mg twice daily�follow-up BMP outpatient 3 to 5 days
-SGLT2i/Entresto cost prohibitive
-Continue BB
-Plan for ACEI/ARb when creatine normalizes
-ED 35-40%
#Chronic anemia/recent blood loss anemia due to recent CABG x 4 vessel
#Anemia with melanotic stools postop CABG on 03/12 received partial 1 unit PRBCs due to IV infiltrate was deemed stable to not reinfuse rest of blood
#History Hemochromatosis HOLD any ORAL IRON per GI causes black stool with confusion of Gi bleed
-IV PPI twice daily, and as per GI - ok to continue Plavix, aspirin unless drop in hemoglobin ]
-Patient reports stools went from black to currently Brown with some black
-Patient was ordered 1 unit PRBC by ER physician
switch back to PPI BID
-Anemia may be related to volume overload
-monitor hgb with diuresis
-F/u CBC outpatient
#Hypernatremia
-monitor with diuresis
-now that back on PO - anticipate will improve
-f/u bmp outpatient
#CAD
#S/p CABG x 4 vessel on 03/06/2024 (CALDWELL�diagonal/LAD, ao�SVG�PDA, SVG�SVG�OM 3) & #45 SHEREEN clip
-Vein graft from right leg
-Continue atorvastatin 40 mg every afternoon, Plavix 75 mg daily, aspirin 81 mg daily, metoprolol succinate 50 mg twice daily
# Acute on chronic VERONICA
-most likely cardio-renal
-monitor with diuresis
-improving
-f/u bmp outpatient
#Leukocytosis likely 2/2 recent CABG x 4 vessel
WBC 14.2, afebrile 98.3F, normotensive 155/71
-monitor cbc, fever curve
-still persistently elevated, no obvious source of infection
� Follow-up CBC outpatient
� Patient nontoxic.
� If continued leukocytosis, may benefit from hematology evaluation
#Transaminitis
-monitor
-improving
#Chronic bifascicular block
#Chronic RBBB
#GERD/Dodd's esophagus
-Continue Protonix 40 mg twice daily
#HTN�benign
continue metoprolol succinate 50 mg twice daily
#DM 2
BS 190
Accu-Cheks with SSI
-Continue Lantus 20 units subcu daily, insulin aspart 8 units subcu with meals
-Metformin
#Hx Hepatitis C status post treatment
#Former IVDA in the past
#BPH
-No reported meds
Other PMH:
Prior alcohol abuse
Prior nicotine abuse
Macular degeneration
Melanoma hx
DVT prophylaxis
SCDs
Full code
More than 30 minutes spent in discharge including
Final examination of the patient
Summarizing hospital stay
Instructions for continuing care to all relevant caregivers
Preparation of discharge records, prescriptions, and referral forms
Total time spent (35 in minutes):
Anticipated Discharge: Today
Subjective/Interval History
-
Date of Service: March 18, 2024
feels well, no acute events
Objective Data
-
Labs:
Laboratory Results
03/18/24
05:23
WBC 16.2 H
Hgb 11.0 L
Hct 34.1 L
Plt Count 483 H
Sodium 145
Potassium 4.2
Chloride 107
Carbon Dioxide 25
BUN 29 H
Creatinine 1.5 H
Glucose 94
Calcium 8.6
Total Bilirubin 0.7
AST 22
ALT 45
Alkaline Phosphatase 115
Vital Signs:
Vital Signs
Temp Pulse Resp BP Pulse Ox
98.3 F 98 18 174/83 96
03/18/24 07:00 03/18/24 07:00 03/18/24 07:00 03/18/24 07:00 03/18/24 07:00
I&O
03/17/24 03/18/24 03/19/24
06:59 06:59 06:59
Intake Total 460 / 460 840 / 840
Output Total 875 / 875 900 / 900
Balance -415 / -415 -60 / -60
Review of Systems
-
History Source: Patient
All other systems: Not reviewed unless documented
Data Reviewed
-
Diagnostic Radiology: Image personally visualized and interpreted and Report Reviewed by me
Labs: Labs Reviewed by me
--- NOTE | 2024-03-18 11:47 | W.DS.TRANS ---
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
-
Discharge Instructions:
Sleep Apnea Risk High
Discharge Diagnosis/Procedures #Acute on Chronic HFpEF
Acute dyspnea status post CABG 2/2 Acute
Diastolic heart failure
#Hypernatremia
Diet Low Cholesterol,Low Fat,Low Sodium,Restrict
fluids to 48 oz
Activity As tolerated
Blood Work BMP in 3-5 days with pcp/cardiology; CBC f/u -
you have an elevated white count that appears to
be chronic after cardiac procedure- should have
it evaluated by pcp and hematology if PCP
desires so. F/u HgB as well
Instructions: *CBC Heart Failure Instructions
Stand-Alone Forms:
Changes to Home Medications: Yes
Discharge Medications:
DC Medications w/original date entered in [facility]
metformin 1,000 mg tablet 1,000 mg PO BID Diabetes 02/28/24
therapeutic multivitamin 1 tab PO DAILY Supplement 02/28/24
zinc sulfate 50 mg zinc (220 mg) tablet 50 mg PO DAILY Supplement 02/28/24
acetaminophen 325 mg tablet 650 mg (2 x 325 mg) PO Q4HPRN PRN mild pain,headache,temp >101F #0 tabs 03/12/24
ascorbic acid (vitamin C) 500 mg tablet 500 mg PO DAILY anemia #30 tabs 03/12/24
aspirin 81 mg chewable tablet 81 mg PO DAILY Blood clot prevention/tx #0 tabs 03/12/24
atorvastatin 40 mg tablet 40 mg PO QPM High cholesterol #60 tabs 03/12/24
clopidogrel 75 mg tablet 75 mg PO DAILY graft patentcy #90 tabs 03/12/24
ferrous sulfate 325 mg (65 mg iron) tablet (FeroSul) 325 mg PO DAILY anemia #30 tabs 03/12/24
furosemide 40 mg tablet 40 mg PO BID AT 0800,1600 Fluid retention/Swelling #14 tabs 03/12/24
insulin aspart U-100 100 unit/mL (3 mL) subcutaneous pen 1 sliding scale dose SC DIRECTED Diabetes #15 mL 03/12/24
insulin aspart U-100 100 unit/mL (3 mL) subcutaneous pen 8 unit (0.08 mL) SC AC Diabetes 30 days #3 mL 03/12/24
insulin glargine 100 unit/mL (3 mL) subcutaneous pen (Lantus Solostar U-100 Insulin) 20 unit (0.2 mL) SC DAILY Diabetes #15 mL 03/12/24
metoprolol succinate 25 mg tablet,extended release 24 hr 50 mg (2 x 25 mg) PO BID Blood pressure #60 tabs 03/12/24
potassium chloride 10 mEq tablet,extended release 10 meq PO DAILY Electrolyte Repletion #7 tabs 03/12/24
sennosides 8.6 mg-docusate sodium 50 mg tablet 1 tab PO Q12 constipation while taking iron #30 tabs 03/12/24
pantoprazole 40 mg tablet,delayed release (Protonix) 40 mg PO BID Gi ulcer #30 tabs 03/13/24
Home Medication Changes
Ferrous sulfate 325 mg (65 mg iron) tablet (FeroSul) 325 mg PO DAILY anemia #30 tabs 03/12/24 - holding
Pending Results: No
[2024-03-18 12:04] LABS: Glucose - Point of Care 117 mg/dl (70-99)
[2024-03-18] MEDS: FLUAD (65 yr+) 2024-2025 FORMULA 0.5 ML IM (12:14)
== END 2024-03-18 13:05 | disposition home or self-care (01) | DRG 291 ==
LOC: 4 WEST ACU 19:56
PROVIDERS: Clinical Nurse Specialist Family Health; ADMITTING PHYSICIAN Hospitalist; ATTENDING PHYSICIAN Internal Medicine; EMERGENCY PHYSICIAN Emergency Medicine; FAMILY PHYSICIAN Family Medicine; OTHER PHYSICIAN Internal Medicine Cardiovascular Disease
PROC: 30233N1 Transfusion of Nonautologous Red Blood Cells into Peripheral Vein, Percutaneous Approach (ICD-10-PCS; 2024-03-15)
DX: I11.0 Hypertensive heart disease with heart failure (principal); I50.23 Acute on chronic systolic (congestive) heart failure; E87.0 Hyperosmolality and hypernatremia; I45.2 Bifascicular block; E87.1 Hypo-osmolality and hyponatremia; N17.9 Acute kidney failure, unspecified; D50.0 Iron deficiency anemia secondary to blood loss (chronic); E66.9 Obesity, unspecified; Z68.34 Body mass index [BMI] 34.0-34.9, adult; E11.9 Type 2 diabetes mellitus without complications; F10.11 Alcohol abuse, in remission; Z95.1 Presence of aortocoronary bypass graft; I25.10 Atherosclerotic heart disease of native coronary artery without angina pectoris; I25.5 Ischemic cardiomyopathy; D72.829 Elevated white blood cell count, unspecified; E78.00 Pure hypercholesterolemia, unspecified; K21.9 Gastro-esophageal reflux disease without esophagitis; K22.70 Barrett's esophagus without dysplasia; K59.00 Constipation, unspecified; H35.30 Unspecified macular degeneration; N40.1 Benign prostatic hyperplasia with lower urinary tract symptoms; R33.8 Other retention of urine; Z79.02 Long term (current) use of antithrombotics/antiplatelets; Z79.4 Long term (current) use of insulin; Z79.82 Long term (current) use of aspirin; Z79.84 Long term (current) use of oral hypoglycemic drugs; Z79.899 Other long term (current) drug therapy; Z87.891 Personal history of nicotine dependence; Z96.653 Presence of artificial knee joint, bilateral; Z87.11 Personal history of peptic ulcer disease; Z86.19 Personal history of other infectious and parasitic diseases; Z85.820 Personal history of malignant melanoma of skin; Z88.0 Allergy status to penicillin
CPT/HCPCS: 93308; 36430; 71046; 80053; 82962; 83735; 83880; 84443; 85025; 86850; 86900; 86901; 86920; 90662; 93005; 93321; 93325; 96374; 97161; 99285; G0008; P9016; Q9950

== ENCOUNTER 2024-05-03 09:42 | Outpatient (RCR) | payer MEDICARE, OTHER, SELFPAY ==
[2024-04-14 14:29] LABS: Glucose - Point of Care 172 mg/dl (70-99)
[2024-04-14 15:19] LABS: Glucose - Point of Care 148 mg/dl (70-99)
[2024-04-17 09:33] LABS: Glucose - Point of Care 174 mg/dl (70-99)
[2024-04-17 10:29] LABS: Glucose - Point of Care 129 mg/dl (70-99)
[2024-04-19 09:22] LABS: Glucose - Point of Care 222 mg/dl (70-99)
[2024-04-19 10:16] LABS: Glucose - Point of Care 130 mg/dl (70-99)
[2024-04-21 09:15] LABS: Glucose - Point of Care 179 mg/dl (70-99)
[2024-04-21 10:15] LABS: Glucose - Point of Care 116 mg/dl (70-99)
[2024-04-24 09:19] LABS: Glucose - Point of Care 213 mg/dl (70-99)
[2024-04-24 10:11] LABS: Glucose - Point of Care 157 mg/dl (70-99)
[2024-04-28 09:21] LABS: Glucose - Point of Care 146 mg/dl (70-99)
[2024-04-28 10:22] LABS: Glucose - Point of Care 88 mg/dl (70-99)
[2024-04-28 10:51] LABS: Glucose - Point of Care 172 mg/dl (70-99)
[2024-05-01 09:18] LABS: Glucose - Point of Care 140 mg/dl (70-99)
[2024-05-01 10:15] LABS: Glucose - Point of Care 103 mg/dl (70-99)
[2024-05-03 09:28] LABS: Glucose - Point of Care 150 mg/dl (70-99)
[2024-05-03 10:27] LABS: Glucose - Point of Care 104 mg/dl (70-99)
== END 2024-05-03 23:59 | disposition home or self-care (01) ==
LOC: CRHB 09:42
PROVIDERS: ATTENDING PHYSICIAN Internal Medicine Cardiovascular Disease; FAMILY PHYSICIAN Family Medicine
DX: Z95.1 Presence of aortocoronary bypass graft (principal)
CPT/HCPCS: 82962; G0422; G0423

== ENCOUNTER 2024-06-05 10:42 | Outpatient (RCR) | payer MEDICARE, OTHER, SELFPAY ==
[2024-05-08 09:32] LABS: Glucose - Point of Care 194 mg/dl (70-99)
[2024-05-08 10:24] LABS: Glucose - Point of Care 109 mg/dl (70-99)
[2024-05-10 09:24] LABS: Glucose - Point of Care 167 mg/dl (70-99)
[2024-05-10 10:22] LABS: Glucose - Point of Care 101 mg/dl (70-99)
[2024-05-15 09:21] LABS: Glucose - Point of Care 146 mg/dl (70-99)
[2024-05-15 10:24] LABS: Glucose - Point of Care 96 mg/dl (70-99)
[2024-05-15 10:50] LABS: Glucose - Point of Care 151 mg/dl (70-99)
[2024-05-19 09:18] LABS: Glucose - Point of Care 194 mg/dl (70-99)
[2024-05-19 10:16] LABS: Glucose - Point of Care 175 mg/dl (70-99)
[2024-05-22 09:31] LABS: Glucose - Point of Care 161 mg/dl (70-99)
[2024-05-22 10:24] LABS: Glucose - Point of Care 91 mg/dl (70-99)
[2024-05-22 11:05] LABS: Glucose - Point of Care 172 mg/dl (70-99)
[2024-05-24 09:24] LABS: Glucose - Point of Care 126 mg/dl (70-99)
[2024-05-24 10:19] LABS: Glucose - Point of Care 123 mg/dl (70-99)
[2024-05-26 09:16] LABS: Glucose - Point of Care 138 mg/dl (70-99)
[2024-05-26 10:19] LABS: Glucose - Point of Care 89 mg/dl (70-99)
[2024-05-29 09:24] LABS: Glucose - Point of Care 165 mg/dl (70-99)
[2024-05-29 10:22] LABS: Glucose - Point of Care 131 mg/dl (70-99)
[2024-06-02 09:22] LABS: Glucose - Point of Care 128 mg/dl (70-99)
[2024-06-02 10:18] LABS: Glucose - Point of Care 99 mg/dl (70-99)
[2024-06-05 09:22] LABS: Glucose - Point of Care 174 mg/dl (70-99)
[2024-06-05 10:30] LABS: Glucose - Point of Care 98 mg/dl (70-99)
== END 2024-06-05 23:59 | disposition home or self-care (01) ==
LOC: CRHB 10:42
PROVIDERS: ATTENDING PHYSICIAN Internal Medicine Cardiovascular Disease; FAMILY PHYSICIAN Family Medicine
DX: Z95.1 Presence of aortocoronary bypass graft (principal); I25.10 Atherosclerotic heart disease of native coronary artery without angina pectoris (principal)
CPT/HCPCS: 82962; G0422; G0423

== ENCOUNTER 2024-07-07 09:49 | Outpatient (RCR) | payer MEDICARE, OTHER, SELFPAY ==
[2024-06-09 09:24] LABS: Glucose - Point of Care 122 mg/dl (70-99)
[2024-06-14 09:17] LABS: Glucose - Point of Care 147 mg/dl (70-99)
[2024-06-14 10:20] LABS: Glucose - Point of Care 110 mg/dl (70-99)
[2024-06-16 09:22] LABS: Glucose - Point of Care 158 mg/dl (70-99)
[2024-06-16 10:22] LABS: Glucose - Point of Care 105 mg/dl (70-99)
== END 2024-07-07 23:59 | disposition home or self-care (01) ==
LOC: CRHB 09:49
PROVIDERS: ATTENDING PHYSICIAN Internal Medicine Cardiovascular Disease; FAMILY PHYSICIAN Family Medicine
DX: I25.10 Atherosclerotic heart disease of native coronary artery without angina pectoris (principal); Z95.1 Presence of aortocoronary bypass graft (principal)
CPT/HCPCS: 36415; 80061; 82962; G0422; G0423

== ENCOUNTER 2024-07-14 09:30 | Outpatient (RCR) | payer MEDICARE, OTHER, SELFPAY | END 2024-07-14 23:59 | disposition home or self-care (01) | LOC: CRHB 09:30 | PROVIDERS: ATTENDING PHYSICIAN Internal Medicine Cardiovascular Disease; FAMILY PHYSICIAN Family Medicine | DX: Z95.1 Presence of aortocoronary bypass graft (principal) | CPT/HCPCS: G0422; G0423 ==

== ENCOUNTER 2024-12-27 02:07 | Emergency (ER) | payer MEDICARE, OTHER, SELFPAY ==
[2024-12-27 02:16] VITALS: BP 150/78
[2024-12-27 02:43] VITALS: BP 141/80
[2024-12-27 03:00] VITALS: BP 145/72
--- NOTE | 2024-12-27 03:55 | ED.GENMED ---
History of Present Illness
General
Chief Complaint: Skin Surface Trauma
Source: patient
Exam Limitations: none
Time Seen by Provider: 12/27/24 02:39
Nursing documentation reviewed up to this point in time: agreed with
History of Present Illness
History of Present Illness:
69-year-old male with a past medical history of CHF, hypertension, Dodd's esophagus, hepatitis, substance use disorder who presents emergency department today with concerns of a bleeding skin tear noted to his left hand. Patient reports that he
was at work at [employer] today when he scraped his hand on a piece of metal that holds plastic bags. He reports that he rinsed the wound out at home and tried applying bandages to the bleed but reports that he bled through bandages. He does take
Plavix as well as aspirin. He states that he is up-to-date on his tetanus vaccination. He denies any other injuries.
Past History
Past History
ED Past Medical History: CAD, Cancer (Melanoma), GERD, HTN, Other (Urinary retention, hep A, B, C, macular degeneratioin) and Other (prostate)
ED Past Surgical History: Cardiac and Other (Biopsy, cervical disc surgery)
Social History
Tobacco: Non-smoker
Alcohol: None
Drug: None
Personal: Single
Living: alone
Employment: Employed
Family History
Family History: Other (Noncontributory)
Review of Systems
Review of Systems
All Other Systems: ROS reviewed and negative except as documented in HPI and ROS
Phy Exam
Physical Exam
Physical Exam:
General: Patient is well appearing and in no acute distress; non-toxic
Skin: Warm and dry, 3 cm V-shaped skin tear noted to left posterior hand
Head: Normocephalic, atraumatic
Eyes: Sclera non-icteric. EOMs intact.
Cardiac: Regular rate
Peripheral Vascular: Brisk capillary refill
Pulm: Normal respiratory effort
Musculoskeletal: No bony tenderness to palpation of the left hand, full range of motion of the left wrist and phalanges
Neuro: CN II-XII intact, no focal neurologic deficits., Sensation intact
Psychiatric: Appropriate mood and affect.
Course
Vital Signs
Initial and Last Documented VS:
Initial Vital Signs
Temp Pulse Resp BP Pulse Ox
98.2 F 87 20 150/78 98
12/27/24 02:16 12/27/24 02:16 12/27/24 02:16 12/27/24 02:16 12/27/24 02:16
Last Documented Vital Signs
Temp Pulse Resp BP Pulse Ox
98.2 F 87 20 152/74 96
12/27/24 02:16 12/27/24 02:16 12/27/24 02:16 12/27/24 04:00 12/27/24 04:00
MDM/Problems Addressed
Differential Diagnosis Includes:
Differentials include skin tear, laceration, abrasion
MDM/Problems Addressed:
69-year-old male presents emergency department today with concerns of skin tear noted to left posterior hand. He cannot get this out bleeding at home. He takes aspirin and Plavix. He is neurovascularly intact. I thoroughly irrigated the wound
and applied pressure and Dermabond for hemostasis. The tear itself was also repaired with Steri-Strips. Patient was observed he did have some mild rebleeding around wound edges, more Dermabond was applied and pressure dressing was created with
Surgicel. Patient stable for discharge. Wound care and return precautions discussed.
Chronic conditions affecting care:
CHF, hypertension,, alcohol abuse, substance abuse, hepatitis
*Pulse Oximetry
SaO2: 96
Oxygen Mode of Delivery: Room air
Patient hypoxic: no
*Critical Care Note
Total Time (30-74mins, 75-104mins- exclusive of procedures): Not Applicable
Data Reviewed
Review of Other/Old Records Reveals: Records (Reviewed discharge summary from 03/13/2024 patient seen for CHF acutely, reviewed discharge summary from 03/20/2024 patient seen for symptomatic anemia and acute on chronic heart failure as well as
hypernatremia)
Source: patient and records
ED Attending Note
-
Portions of this chart may have been created with voice recognition software.� Occasional wrong word or��sound alike� substitutions may have occurred due to the inherent limitations of voice recognition software.
Discharge Plan
Departure
Patient Disposition: Home (Routine Discharge)
Date of Disposition: 12/27/24
Time of Disposition: 04:03
Patient with high blood pressure during this ER visit?: Yes
Condition: Good
Discharge Problem:
Skin tear
Instructions: Laceration Repair With Glue (DC), Wound Care (DC), BLOOD PRESSURE
Prescriptions:
No Action
therapeutic multivitamin Tablet
1 tab PO DAILY
zinc sulfate 50 mg zinc (220 mg) Tablet
50 mg PO DAILY
metformin 1,000 mg Tablet
1,000 mg PO BID
furosemide 40 mg Tablet
40 mg PO BID AT 0800,1600 Qty: 14 0RF
atorvastatin 40 mg Tablet
40 mg PO QPM Qty: 60 1RF
acetaminophen 325 mg Tablet
650 mg PO Q4HPRN PRN (Reason: mild pain,headache,temp >101F ) Qty: 0 0RF
clopidogrel 75 mg Tablet
75 mg PO DAILY Qty: 90 3RF
ferrous sulfate [FeroSul] 325 mg (65 mg iron) Tablet
325 mg PO DAILY Qty: 30 0RF
aspirin 81 mg Tablet,Chewable
81 mg PO DAILY Qty: 0 0RF
metoprolol succinate 25 mg Tablet Extended Release 24 Hr
50 mg PO BID Qty: 60 0RF
insulin glargine [Lantus Solostar U-100 Insulin] 100 unit/mL (3 mL) insulin pen
20 unit SC DAILY Qty: 15 0RF
insulin aspart U-100 100 unit/mL (3 mL) insulin pen
8 unit SC AC 30 Days Qty: 3 0RF
sennosides-docusate sodium 8.6-50 mg Tablet
1 tab PO Q12 Qty: 30 0RF
ascorbic acid (vitamin C) 500 mg Tablet
500 mg PO DAILY Qty: 30 0RF
insulin aspart U-100 100 unit/mL (3 mL) insulin pen
1 sliding scale dose SC DIRECTED Qty: 15 0RF
Rx Instructions:
70-149mg/dL---No Insulin, 150-199mg/dL --- 1 unit, 200-249mg/dL --- 3 unit, 250-299 mg/dL ---5 units
potassium chloride 10 mEq tablet extended release
10 meq PO DAILY Qty: 7 0RF
pantoprazole [Protonix] 40 mg tablet,delayed release (DR/EC)
40 mg PO BID Qty: 30 0RF
Referrals:
Laith Mohamud MD [Family Provider, Family Practice]
Activity Restrictions/Additional Instructions:
Please keep wound dry for 24 hours. After 24 hours, you can change dressing once daily. Please do not remove Steri-Strips as these will start to left and peel off on their own as the wound heals.
Please not scrub the wound, please not use hydrogen peroxide or alcohol over the wound. PLEASE RETURN THE EMERGENCY DEPARTMENT SHOULD YOU DEVELOP PURULENT DRAINAGE FROM THE WOUND, INCREASING PAIN OR SWELLING, SURROUNDING REDNESS, OR ANY OTHER SIGNS
OR SYMPTOMS WORRISOME TO YOU.
Interventions
Interventions:
*Risk Screen - Suicide Last Done: 12/27/24 02:16
*General Assessment Last Done: 12/27/24 02:16
*Neglect/Abuse Screening Last Done: 12/27/24 02:16
*ED- Fall Risk Assessment Last Done: 12/27/24 02:16
*ED COVID-19 Vaccine History Last Done: 12/27/24 02:16
*Nursing Disposition Last Done: 12/27/24 04:08
ED-Skin Assessment Last Done: 12/27/24 02:44
Discharge Date and Time
Discharge Date/Time: 12/27/24 04:08
Print Language: GREEK
[2024-12-27 04:00] VITALS: BP 152/74
== END 2024-12-27 04:08 | disposition home or self-care (01) ==
LOC: EMR 02:07
PROVIDERS: EMERGENCY PHYSICIAN Student in an Organized Health Care Education/Training Program; FAMILY PHYSICIAN Family Medicine
DX: S61.412A Laceration without foreign body of left hand, initial encounter (principal); W22.8XXA Striking against or struck by other objects, initial encounter; Y93.89 Activity, other specified; Y92.89 Other specified places as the place of occurrence of the external cause; Y99.0 Civilian activity done for income or pay; I11.0 Hypertensive heart disease with heart failure; I50.9 Heart failure, unspecified; I25.10 Atherosclerotic heart disease of native coronary artery without angina pectoris; K21.9 Gastro-esophageal reflux disease without esophagitis; I25.5 Ischemic cardiomyopathy; I45.10 Unspecified right bundle-branch block; H35.30 Unspecified macular degeneration; K22.70 Barrett's esophagus without dysplasia; M19.90 Unspecified osteoarthritis, unspecified site; Z96.653 Presence of artificial knee joint, bilateral; Z95.1 Presence of aortocoronary bypass graft; Z85.820 Personal history of malignant melanoma of skin; Z86.19 Personal history of other infectious and parasitic diseases; Z87.891 Personal history of nicotine dependence; Z79.02 Long term (current) use of antithrombotics/antiplatelets; Z79.82 Long term (current) use of aspirin; Z88.0 Allergy status to penicillin
CPT/HCPCS: 99282; 12002